=== PATIENT | female | born 1985 | race Caucasian/White ===

== ENCOUNTER 2023-09-03 13:34 | Outpatient (OUT) | payer BC, SELFPAY ==
--- NOTE | 2023-09-03 13:35 | US_ITS ---
[address] [address] Patient Name: YULIANA FLORES MRN: [id number] date: 1985 Sex: F Assigned Patient Location: US Current Patient Location: Accession/Order Number: [id number] Exam Date: 09/03/2023 13:40 Report Date: 09/03/2023 22:15 At the request of: LILIAN VELASCO Procedure: US OB transvaginal EXAMINATION: US OB transvaginal HISTORY: MISSED MENSES COMPARISON: No relevant comparison available. FINDINGS: GESTATIONAL SAC: Present and normal appearing. YOLK SAC: Present and normal appearing. POLE: Present and normal appearing. CARDIAC: Present. UTERUS: Normal size and appearance. OVARIES: Right: Corpus lutein cyst. Left: Not seen. CERVIX: 3.6 cm in length and closed. CUL-DE-SAC: Normal. OTHER: Hypervascularity within right adnexa; nonspecific. AGE BY LMP: 8 weeks 5 days IRMA BY LMP: 04/09/2024 AGE BY US CRL: 7 weeks 6 days IRMA BY US CRL: 04/15/2024 US/US OB transvaginal IMPRESSION: 1. Single live intrauterine . Electronically authenticated by: ALISHA PATEL Date: 09/03/2023 22:15
== END 2023-09-03 13:35 | disposition home or self-care (01) ==
LOC: US 13:34
PROVIDERS: Visit Provider Obstetrics & Gynecology
DX: Z34.01 Encounter for supervision of normal first pregnancy, first trimester (principal); Z3A.08 8 weeks gestation of pregnancy
CPT/HCPCS: 76817

== ENCOUNTER 2023-09-17 15:10 | Outpatient (OUT) | payer BC, SELFPAY ==
[2023-09-17 15:33] LABS: Basophils Percent Auto 0.5 % (0.2-2.0); Eosinophils Absolute Auto 0.2 10^3/uL (0.0-0.7); Eosinophils Percent Auto 2.4 % (0.9-7.0); Hematocrit 34.5 % (36.0-48.0); Hemoglobin 11.4 g/dL (12.0-16.0); Immature Granulocytes Abs Auto 0.01 10^3/uL (0.00-0.03); Immature Granulocytes Pct Auto 0.1 % (0.0-0.5); Lymphocytes Absolute Auto 2.5 10^3/uL (1.2-3.8); Lymphocytes Percent Auto 32.5 % (20.5-60.0); Mean Corpuscular Hemoglobin 32.5 pg (26.7-34.0); Mean Corpuscular Volume 98.3 fL (81.0-99.0); Mean Platelet Volume 11.3 fL (9.5-13.5); Monocytes Absolute Auto 0.8 10^3/uL (0.3-0.8); Monocytes Percent Auto 9.7 % (1.7-12.0); Neutrophils Absolute Auto 4.3 10^3/uL (1.4-6.5); Neutrophils Percent Auto 54.8 % (43.0-75.0); Platelet Count 171 10^3/uL (150-450); Red Blood Count 3.51 10^6/uL (4.20-5.40); Red Cell Distribution Width 11.8 % (11.0-15.0); White Blood Count 7.8 10^3/uL (4.0-11.0)
[2023-09-17 15:47] LABS: Estimated Average Glucose 100 mg/dL; Glycohemoglobin A1C 5.1 % (4.5-6.2)
[2023-09-17 16:13] LABS: Thyroid Stimulating Hormone <0.007 uIU/mL (0.358-3.740)
[2023-09-18 05:07] LABS: HCV Ab Non Reactive (Non Reactive); HIV Ab/p24 Ag Screen Non Reactive (Non Reactive); Rubella Antibodies, IgG 1.97 index (Immune >0.99)
[2023-09-18 06:09] LABS: HBsAg Screen Negative (Negative)
[2023-09-18 11:09] LABS: Rapid Plasma Reagin, Quant Non Reactive titer (NonRea<1:1)
== END 2023-09-17 15:11 | disposition home or self-care (01) ==
LOC: LAB 15:12
PROVIDERS: Visit Provider Obstetrics & Gynecology
DX: N92.6 Irregular menstruation, unspecified (principal)
CPT/HCPCS: 36415; 83036; 84443; 85025; 86592; 86762; 86803; 86850; 86900; 86901; 87086; 87340; 87389

== ENCOUNTER 2023-10-13 15:36 | Outpatient (OUT) | payer BC, SELFPAY ==
[2023-10-13 16:52] LABS: Thyroid Stimulating Hormone 0.054 uIU/mL (0.358-3.740)
== END 2023-10-13 15:37 | disposition home or self-care (01) ==
LOC: LAB 15:39
PROVIDERS: Visit Provider Obstetrics & Gynecology
DX: R79.89 Other specified abnormal findings of blood chemistry (principal)
CPT/HCPCS: 36415; 84443

== ENCOUNTER 2024-01-19 15:10 | Outpatient (OUT) | payer BC, MEDICAID, SELFPAY ==
[2024-01-19 16:37] LABS: Basophils Absolute Auto 0.1 10^3/uL (0.0-0.1); Basophils Percent Auto 0.5 % (0.2-2.0); Eosinophils Absolute Auto 0.3 10^3/uL (0.0-0.7); Eosinophils Percent Auto 2.9 % (0.9-7.0); Hematocrit 29.1 % (36.0-48.0); Hemoglobin 9.5 g/dL (12.0-16.0); Immature Granulocytes Abs Auto 0.07 10^3/uL (0.00-0.03); Immature Granulocytes Pct Auto 0.6 % (0.0-0.5); Lymphocytes Absolute Auto 2.7 10^3/uL (1.2-3.8); Mean Corpuscular HGB Conc 32.6 g/dL (29.9-35.2); Mean Corpuscular Hemoglobin 32.8 pg (26.7-34.0); Mean Corpuscular Volume 100.3 fL (81.0-99.0); Mean Platelet Volume 11.7 fL (9.5-13.5); Monocytes Absolute Auto 0.9 10^3/uL (0.3-0.8); Monocytes Percent Auto 8.3 % (1.7-12.0); Neutrophils Absolute Auto 6.8 10^3/uL (1.4-6.5); Neutrophils Percent Auto 62.7 % (43.0-75.0); Platelet Count 142 10^3/uL (150-450); Red Cell Distribution Width 12.9 % (11.0-15.0); White Blood Count 10.8 10^3/uL (4.0-11.0)
[2024-01-19 16:44] LABS: Glucose 1 Hour 115 mg/dL (<130)
== END 2024-01-19 15:11 | disposition home or self-care (01) ==
PROVIDERS: Visit Provider Obstetrics & Gynecology
DX: Z13.1 Encounter for screening for diabetes mellitus (principal)
CPT/HCPCS: 36415; 82950; 85025

== ENCOUNTER 2024-02-04 09:32 | Outpatient (OUT) | payer BC, MEDICAID, SELFPAY ==
--- NOTE | 2024-02-04 09:37 | US_ITS ---
[address] [address] Patient Name: YULIANA FLORES MRN: [id number] date: 1985 Sex: F Assigned Patient Location: US Current Patient Location: Accession/Order Number: [id number] Exam Date: 02/04/2024 09:38 Report Date: 02/04/2024 10:03 At the request of: LILIAN VELASCO Procedure: US OB growth EXAMINATION: US OB growth HISTORY: Multigravida Of Advanced Maternal Age In Second Trimester COMPARISON: 09/03/2023 FINDINGS: Heart Rate: 126.2 bpm Amniotic Fluid Volume: 14.7 cm Number: 1.0 Position: Breech presentation, longitudinal lie Maximum Vertical Pocket: 4.6 cm cm 5.2 cm cm 2.8 cm cm 2.0 cm cm BIOMETRY: BPD: 7.1 cm cm; 28 weeks 3 days; 7% HC: 27.0 cmcm; 29 weeks 3 days, 9% AC: 24.9 cm cm; 29 weeks 1 days, 24% FL: 5.2 cm cm; 27 weeks 4 days; 3.0 % % EFW: 1255.7 grams, 2 lbs. 12 oz., 18% FL/AC: 20.8 FL/BPD: 73.0 HC/AC: 1.1 GESTATIONAL AGE: Age by EDC: 29 weeks 6 days IRMA by EDC: 04/15/2024 Age by US: 28 weeks 5 days IRMA by US: 04/23/2024 US/US OB growth IMPRESSION: Femur length at the 3rd percentile BPD at the 7th percentile Electronically authenticated by: KIYA FARMER Date: 02/04/2024 10:03
== END 2024-02-04 09:33 | disposition home or self-care (01) ==
LOC: US 09:32
PROVIDERS: Visit Provider Obstetrics & Gynecology
DX: O09.522 Supervision of elderly multigravida, second trimester (principal); Z3A.28 28 weeks gestation of pregnancy
CPT/HCPCS: 76816

== ENCOUNTER 2024-02-19 15:25 | Outpatient (OUT) | payer BC, MEDICAID, SELFPAY ==
[2024-02-19 16:26] LABS: Basophils Percent Auto 0.3 % (0.2-2.0); Eosinophils Absolute Auto 0.3 10^3/uL (0.0-0.7); Eosinophils Percent Auto 2.7 % (0.9-7.0); Hematocrit 29.2 % (36.0-48.0); Hemoglobin 9.4 g/dL (12.0-16.0); Immature Granulocytes Abs Auto 0.12 10^3/uL (0.00-0.03); Mean Corpuscular HGB Conc 32.2 g/dL (29.9-35.2); Mean Corpuscular Hemoglobin 32.3 pg (26.7-34.0); Mean Corpuscular Volume 100.3 fL (81.0-99.0); Mean Platelet Volume 11.9 fL (9.5-13.5); Monocytes Absolute Auto 0.9 10^3/uL (0.3-0.8); Monocytes Percent Auto 8.1 % (1.7-12.0); Neutrophils Absolute Auto 7.1 10^3/uL (1.4-6.5); Neutrophils Percent Auto 61.9 % (43.0-75.0); Platelet Count 159 10^3/uL (150-450); Red Blood Count 2.91 10^6/uL (4.20-5.40); Red Cell Distribution Width 12.8 % (11.0-15.0); White Blood Count 11.5 10^3/uL (4.0-11.0)
[2024-02-19 16:40] LABS: Total Protein 6.8 g/dL (6.4-8.2)
[2024-02-23 12:09] LABS: Antithrombin Activity 136 % (75-135); Protein C-Functional 108 % (73-180)
[2024-02-26 10:09] LABS: APTT 26.1 sec (.); INR 0.9 ratio (.); Prothrombin Time 9.9 sec (.); Thrombin Time 14.7 sec (.)
== END 2024-02-19 15:26 | disposition home or self-care (01) ==
LOC: LAB 15:26
PROVIDERS: Visit Provider Obstetrics & Gynecology
DX: O26.22 Pregnancy care for patient with recurrent pregnancy loss, second trimester (principal); D64.9 Anemia, unspecified
CPT/HCPCS: 36415; 81241; 84155; 85025; 85303; 85305; 85306; 85597; 85598; 85610; 85613; 85670; 85730; 85732; 86146; 86147

== ENCOUNTER 2024-03-09 07:18 | Outpatient (OUT) | payer BC, OTHER, SELFPAY ==
--- OUTSIDE RECORDS SUMMARY | 2024-03-09 07:21 | XMS_ITS | CCD ---
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 Name Role Phone AKIKO ., DR SÁNCHEZ Admitting Unavailabl e KARASIK ., DR SÁNCHEZ Attending Unavailabl e KARASIK ., DR SÁNCHEZ Primary Care Unavailabl e KARASIK ., DR SÁNCHEZ Consulting Unavailabl e Unavailable Primary Care Provider Unavailabl e DOCHEVA, NIKOLINA P Referring Unavailable NO PCP, NO PCP Primary Care Unavailable Unavailable Primary Care Provider Unavailabl e No Pcp, No Pcp Primary Care Provider Unavailabl e DOCHEVA, NIKOLINA P Referring Unavailable DOCHEVA, NIKOLINA P Referring Unavailable MOUSSA, HIND NADIM Attending Unavailable MOUSSA, HIND NADIM Referring Unavailable NO PCP, NO PCP Primary Care Unavailable MOUSSA, HIND NADIM Attending Unavailable KRISTA, LILIAN R Referring Unavailable NO PCP, NO PCP Primary Care Unavailable REF PROV, NOT IN SYSTEM Referring Unavaila ble KRISTA, LILIAN Attending Unavailable KRISTA, LILIAN Attending Unavailable BONI, MAMTA Attending Unavailable KRISTA, LILIAN Attending Unavailable KRISTA, LILIAN Attending Unavailable BONI, MAMTA Attending Unavailable BONI, MAMTA Attending Unavailable Medications Current Medications Medication Drug Class(es) Dates Sig (Normalized) Sig (Original) aspirin 81 mg chewable tablet (6 sources) Platelet Aggregation Inhibitor, Nonsteroidal Anti-inflammatory Drug Start: 10-29-2023 End: 05-26-2024 aspirin 81 mg chewable tablet Indications: 15 weeks gestation of , Multigravida of advanced maternal age in second trimester Chew 1 tablet (81 mg total) and swallow in the morning for 210 days. 30 tablet 6 10/29/2023 05/26/2024 Active ondansetron 4 mg oral tablet (6 sources) Serotonin-3 Receptor Antagonist take 1 tablet by mouth every eight hours as needed for nausea and vomiting ondansetron (ZOFRAN) 4 mg tablet Take 1 tablet (4 mg total) by mouth every 8 (eight) hours as needed for nausea or vomiting. 0 Active PNV no.95/ferrous fum/folic ac ( ORAL) (4 sources) PNV no.95/ferrou s fum/folic ac ( ORAL) Take by mouth. 0 Active MV & Min w/FA-DHA ( Gummies) 0.18-25 MG chewable tablet (3 sources) Start: 09-03-2023 End: 09-02-2024 MV & Min w/FA-DHA ( Gummies) 0.18-25 MG chewable tablet Indications: Missed menses Chew 25 mg in the morning. 30 tablet 11 09/03/2023 09/02/2024 Active Problems Problem Classification Problem Date Documented Date Episodic/Chronic Immunizations and screening for infectious disease (1 source) Encounter for screening for human papillomavirus (HPV); Translations: [ENC SCREENING HUMAN PAPILLOMAVIRUS] Onset: 01-09-2023 Episodic Other complications of (7 sources) Multigravida of advanced maternal age; Translations: [Supervision of elderly multigravida, second trimester] Onset: 10-30-2023 11-04-2023 Episodic Other complications of (3 sources) Abnormal findings on screening of mother; Translations: [Abnormal chromosomal and genetic finding on screening of mother] 11-04-2023 Episodic Other complications of (4 sources) Abnormal placenta affecting management of mother; Translations: [Other malformation of placenta, unspecified trimester] Onset: 10-30-2023 10-30-2023 Episodic Other complications of (5 sources) Placenta circumvallata; Translations: [Circumvallate placenta, second trimester] Onset: 10-30-2023 10-30-2023 Episodic Other complications of (4 sources) Maternal tobacco use; Translations: [Smoking (tobacco) complicating , second trimester] Onset: 10-30-2023 10-30-2023 Episodic Other complications of (2 sources) Recurrent miscarriage; Translations: [ care for patient with recurrent loss, second trimester] 11-26-2023 Episodic Other complications of (2 sources) Supervision of elderly multigravida, second trimester; Translations: [Supervision of elderly multigravida, second trimester] Onset: 10-30-2023 Episodic Other complications of (1 source) Other malformation of placenta, unspecified trimester; Translations: [Other malformation of placenta, unspecified trimester] Onset: 10-30-2023 Episodic Other complications of (2 sources) Circumvallate placenta, second trimester; Translations: [Circumvallate placenta, second trimester] Onset: 10-30-2023 Episodic Other complications of (2 sources) Endocrine, nutritional and metabolic diseases complicating , unspecified trimester; Translations: [Endocrine, nutritional and metabolic diseases complicating , unspecified trimester] Onset: 10-29-2023 Episodic Other complications of (1 source) Smoking (tobacco) complicating , second trimester; Translations: [Smoking (tobacco) complicating , second trimester] Onset: 10-30-2023 Episodic Other complications of (2 sources) Malformation of placenta, unspecified, unspecified trimester; Translations: [Malformation of placenta, unspecified, unspecified trimester] Onset: 12-01-2023 Episodic Other complications of (1 source) Thyroid disease in mother complicating , childbirth AND/OR puerperium; Translations: [Endocrine, nutritional and metabolic diseases complicating , unspecified trimester] 12-29-2023 Episodic Other complications of (1 source) care for patient with recurrent loss, second trimester; Translations: [ care for patient with recurrent loss, second trimester] Onset: 12-29-2023 Episodic Other complications of (1 source) Abnormal chromosomal and genetic finding on screening of mother; Translations: [Abnormal chromosomal and genetic finding on screening of mother] Onset: 11-26-2023 Episodic Other and delivery including normal (5 sources) Second trimester ; Translations: [Encounter for supervision of normal , unspecified, second trimester] Onset: 11-20-2023 11-20-2023 Episodic Other screening for suspected conditions (not mental disorders or infectious disease) (9 sources) Encounter for screening for malignant neoplasm of cervix; Translations: [Encounter for other specified screening] Onset: 01-06-2023 Episodic Residual codes; unclassified (1 source) Gestation period, 24 weeks; Translations: [24 weeks gestation of ] 12-29-2023 Episodic Residual codes; unclassified (1 source) 24 weeks gestation of ; Translations: [24 weeks gestation of ] Onset: 02-20-2024 Episodic Residual codes; unclassified (1 source) 15 weeks gestation of ; Translations: [15 weeks gestation of ] Onset: 10-29-2023 Episodic Thyroid disorders (2 sources) Disorder of thyroid, unspecified; Translations: [Disorder of thyroid, unspecified] Onset: 10-29-2023 Episodic Unclassified (1 source) Marginal Insertion of Umbilical Cord Onset: 12-29-2023 Unclassified (1 source) Advanced Maternal Age Onset: 12-29-2023 Results Test Name Value Interpretation Reference Range Facility Urinalysis macro (dipstick) panel (U)on 12-23-2023 Bilirubin, UA Negative Negative - 4(70) +++ mg/dL [facility] Blood, UA Negative Negative - 50 Ari/mcL [facility] Clarity, UA Clear [facility] Color, UA Yellow [facility] Glucose, UA Negative Negative - 1999(110) ++++ mg/dL [facility] Interpretation and review of laboratory results Normal [facility] Ketones, UA Negative Negative - 160(16) ++++ mg/dL [facility] Leukocytes, UA Negative Negative - 500+++ Panchito/mcL [facility] Nitrite, UA Negative Negative - Positive [facility] pH, UA 7.5 5 - 9 [facility] Protein, UA Negative Negative - 1999(20) ++++ mg/dL [facility] Spec Grav, UA 1.015 1 - 1.03 [facility] Urobilinogen, UA 0.2 0.2 - 12 mg/dL [facility] FREE T3on 10-29-2023 Free T3 [Mass/Vol] 2.72 pg/mL Normal 2.50-3.90 [facility] Comment on above: Performed By: #### 3 051-0, THYR #### [facility] ([id number]) [address], [address] [place] [address] THYROID PROFILEon 10-29-2023 Free T4 [Mass/Vol] 0.85 ng/dL Normal 0.61-1.60 [facility] Comment on above: Performed By: #### 3 051-0, THYR #### [facility] ([id number]) [address] [place] [address], [address] [place] [address] TSH 0.18 uIU/mL Low 0.49-4.67 [facility] Comment on above: Performed By: #### 3 051-0, THYR #### [facility] ([id number]) [address], [address] [place] [address] Thyroid stimulating immunogl obulins Qn (S)on 10-29-2023 TSI See Below Normal [facility] Comment on above: Result Comment: NOTE TEST RESULT FLAG UNIT REF.RANGE ----- TSI Qualitative Negative Negative TSI <0.10 IU/L <0.55 Thyroid Stimulating Immunoglobulin test is used as an aid in diagnosis of autoimmune hyperthyroidism especially in patients with Grave's orbitopathy and dermopathy. Low positive TSH receptor stimulating antibody levels may occasionally be found in patients with autoimmune hypothyroidism. Clinical correlation is required. Test Performed By: [facility] [address] [place] [address] Imager: Casandra Womack III #[id number] Performed By: #### 3 051-0, THYR #### [facility] ([id number]) [address], [address] [address] PAP ACOG PANEL 1: 30 to 65on 01-15-2023 . . Normal [facility] Comment on above: Result Comment: Perf ormed at: WB Performed By: #### [id number] #### [facility] [address] [place] [address] Dr. Ata Rao Age Gdln ACOG Testing 30-65 Normal [facility] Comment on above: Performed By: #### [id number] #### [facility] [address] [place] [address] Dr. Ata Rao DIAGNOSIS: Comment [facility] Comment on above: Result Comment: NEGA TIVE FOR INTRAEPITHELIAL LESION OR MALIGNANCY. CELLULAR CHANGES ASSOCIATED WITH INFLAMMATION ARE PRESENT. THIS SPECIMEN WAS RESCREENED PART OF OUR FLOWER BUNCHER OR PICKER PROGRAM. Performed at: WB Performed By: #### [id number] #### [facility] [address] [place] [address] Dr. Ata Rao HPV Aptima Negative Normal Negative [facility] Comment on above: Result Comment: This nucleic acid amplification test detects fourteen high-risk HPV types (16,18,31,33,35,39,45,51,52,56,58,59,66,68) without differentiation. Performed at: =G Performed By: #### [id number] #### [facility] [address] [place] [address] Dr. Ata Rao HPV Genotype Reflex Comment Normal [facility] Comment on above: Result Comment: Crit eria not met, HPV Genotype not performed. Performed at: WB Performed By: #### [id number] #### [facility] [address] [place] [address] Dr. Ata Rao Methodology: Comment Normal [facility] Comment on above: Result Comment: This liquid based ThinPrep(R) pap test was screened with the use of an image guided system. Performed at: WB Performed By: #### [id number] #### [facility] [address] [place] [address] Dr. Ata Rao Note: Comment Normal [facility] Comment on above: Result Comment: The Pap smear is a screening test designed to aid in the detection of premalignant and malignant conditions of the uterine cervix. It is not a diagnostic procedure and should not be used as the sole means of detecting cervical cancer. Both false-positive and false-negative reports do occur. . Performed at: WB Performed By: #### [id number] #### [facility] [address] [place] [address] Dr. Ata Rao Performed by: Comment Normal [facility] Comment on above: Result Comment: Matt Tang, Serology Teacher (ASCP) Performed at: WB Performed By: #### [id number] #### [facility] [address], [place] [address] Dr. Ata Rao QC reviewed by: Comment Normal [facility] Comment on above: Result Comment: Jeanette Zhang, Supervisory Serology Teacher (ASCP) Performed at: WB Performed By: #### [id number] #### [facility] [address], [place] [address] Dr. Ata Rao Specimen adequacy: Comment Normal [facility] Comment on above: Result Comment: Sati sfactory for evaluation. Endocervical and/or squamous metaplastic cells (endocervical component) are present. Performed at: WB Performed By: #### [id number] #### [facility] [address] [place] [address] [address] Ata Rao Vital Signs Date Time Vital Sign Value Performing Clinician Hannah osman 12-29-2023 13:10-0500 Body height 163.8 cm Isaias Lujan MD Work Phone: [facility] 12-29-2023 13:10-0500 Body mass index (BMI) [Ratio] 21.26 kg/m2 Isaias Lujan MD Work Phone: [facility] 12-29-2023 13:10-0500 Body weight 57.06 kg Isaias Lujan MD Work Phone: [facility] 12-29-2023 13:10-0500 Diastolic blood pressure 54 mm[Hg] Isaias Lujan MD Work Phone: [facility] 12-29-2023 13:10-0500 Heart rate 82 /min Isaias Lujan MD Work Phone: [facility] 12-29-2023 13:10-0500 Systolic blood pressure 112 mm[Hg] Isaais Lujan MD Work Phone: [facility] 12-23-2023 11:32-0500 Body mass index (BMI) [Ratio] 21.46 kg/m2 Mamta OWENS Work Phone: [facility] 12-23-2023 11:32-0500 Body weight 56.7 kg Mamta OWENS Work Phone: [facility] 12-23-2023 11:32-0500 Diastolic blood pressure 68 mm[Hg] Mamta OWENS Work Phone: [facility] 12-23-2023 11:32-0500 Systolic blood pressure 104 mm[Hg] Mamta OWENS Work Phone: [facility] Healthcare Encounters Encounter Date Encounter Type Care Provider Facility Start: 02-23-2024 End: 02-23-2024 ambulatory MAMTA PLATA Not Available Start: 02-04-2024 End: 02-04-2024 ambulatory LILIAN KING Not Available Start: 01-21-2024 End: 01-21-2024 ambulatory LILIAN KING Not Available Start: 12-29-2023 End: 12-30-2023 ambulatory [facility] Start: 12-29-2023 End: 12-29-2023 Office outpatient visit 25 minutes Isaias Lujan MD Work Phone: [facility] Comment on above: Multigravida of adva nced maternal age in second trimester (Primary Dx); Abnormal genetic test during ; Circumvallate placenta in second trimester; Thyroid disease affecting ; 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, antepartum; 24 weeks gestation of Start: 12-23-2023 End: 12-23-2023 ambulatory MAMTA PLATA Not Available Start: 12-23-2023 End: 12-23-2023 flow sheet Mamta OWENS Work Phone: [facility] Comment on above: Third trimester preg lalit; Diabetes mellitus screening Start: 12-21-2023 Chart abstracting Mamta OWENS Work Phone: [facility] Start: 12-01-2023 End: 12-02-2023 ambulatory [facility] Start: 11-26-2023 End: 11-26-2023 ambulatory [facility] Start: 11-26-2023 End: 11-26-2023 Telemedicine consultation with patient Lucia Toth MD Work Phone: [facility] Comment on above: Abnormal genetic sadi t during (Primary Dx); Multigravida of advanced maternal age in second trimester; 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, antepartum Start: 11-24-2023 End: 11-24-2023 ambulatory LILIAN JACOBO Not Available Start: 11-11-2023 Telephone encounter Ashley Higgins RN Mat ernal- [facility] at [facility] Start: 11-04-2023 Orders Only Radha Sy RN Materna l- [facility] at [facility] Comment on above: Multigravida of adva nced maternal age in second trimester (Primary Dx); Abnormal genetic test during Start: 10-29-2023 End: 10-31-2023 ambulatory NOT IN SYSTEM REF PROV [facility] Start: 10-27-2023 End: 10-27-2023 ambulatory MAMTA PLATA Not Available Start: 09-24-2023 End: 09-24-2023 ambulatory LILIAN KING Not Available Start: 01-06-2023 End: 01-06-[address] PRINCESS WHARTON . Facility: Procedures Date Procedure Procedure Detail Performing Clinician Start: 12-23-2023 Urnls dip stick/tabl et rgnt non-auto w/o micrscp Mamta OWENS Work Phone: Plan of Treatment Date Care Activity Detail Author Start: 12-29-2024 Tobacco Screening Tobacco Screening [facility] Start: 10-30-2024 Tobacco Screening Tobacco Screening [facility] Start: 02-08-2024 End: 02-08-2024 Patient encounter procedure 02/08/2024 9:00 AM EDT Office Visit [facility] [address] [facility] [place] [address] Lilian King, [address] [place] [address] [facility] Start: 01-21-2024 End: 01-21-2024 Patient encounter procedure 01/21/2024 9:40 AM EDT Routine [facility] [address] [address] Lilian King DO [address] [place] [address] [facility] Start: 12-23-2023 End: 12-23-2024 CBC panel - Blood by Automated count CBC Lab Routine Diabetes mellitus screening Expected: 12/23/2023 (Approximate), Expires: 12/23/2024 [facility] Work Phone: Comment on above: Expected: 12/23/2023 (Approximate), Expires: 12/23/2024 Start: 12-23-2023 End: 12-23-2024 Measurement of glucose 1 hour after glucose challenge for glucose tolerance test Glucose tolerance, 1 hour Lab Routine Diabetes mellitus screening Expected: 12/23/2023 (Approximate), Expires: 12/23/2024 [facility] Comment on above: Expected: 12/23/2023 (Approximate), Expires: 12/23/2024 Start: 12-23-2023 End: 12-23-2023 Patient encounter procedure 12/23/2023 11:20 AM EST Routine [facility] [address] [address] Mamta Plata PA [address] [address] Third trimester [facility] Comment on above: Third trimester preg lalit Start: 12-03-2023 End: 12-03-2023 Patient encounter procedure 12/03/2023 11:00 AM EST Appointment [facility] [address] [place] [address] [facility] [place] Start: 12-01-2023 End: 12-01-2023 Patient encounter procedure 12/01/2023 1:30 PM EST Appointment [facility] [address] [place] [address] [facility] Start: 11-26-2023 End: 11-26-2023 Telemedicine consultation with patient 11/26/2023 3:00 PM EST Telemedicine [facility] [address] [place] [address] Lucia Toth MD [address] [facility], [address] [place] [address] Nataly Koo, [facility] [address] [place] [address] [facility] Start: 07-10-2023 Influenza vaccination Influenza Vacc ine [facility] Start: 2008 Screening for malign ant neoplasm of cervix Pap Smear [facility] Start: 2005 Adult BMI Screening Adult BMI Screen ing [facility] Start: 1999 Depression Screening Depression Scre ening [facility] Start: 1998 DTaP,Tdap and Td Vaccines (5 - Tdap) DTaP,Tdap and Td Vaccines (5 - Tdap) [facility] Payers Date Payer Category Payer Medicaid MEDICAID [facility] EDICAID [id number] 2023-Present [phone] [address] [place] [address] [id number] 2023 Medicaid [id number] 2019 Unknown [id number] 2019 Unknown [id number] 1987 Unknown [id number] 1987 Unknown [id number] [id number] 1987 Unknown [id number] 2.16.840.1.330638.3.579.2.6 1987 Unknown [id number] 2.16.840.1.852984.3.579.2.6 1987 Unknown [id number] 2.16.840.1.070928.3.579.2.1285 1987 Unknown [id number] 2.16.840.1.560516.3.579.2.6 1987 Unknown [id number] 2.16.840.1.810106.3.579.2.1285 1987 Unknown [id number] 2.16.840.1.389700.3.579.2.9 1987 Unknown [id number] 2.16.840.1.427842.3.579.2.1258 1987 Unknown [id number] 2.16.840.1.101083.3.579.2.9 1987 Unknown [id number] 2.16.840.1.458493.3.579.2.1258 1987 Unknown [id number] 2.16.840.1.061207.3.579.2.9 1987 Unknown [id number] 2.16.840.1.929048.3.579.2.1258 1987 Unknown [id number] [id number] 1959 Unknown [id number] Social History Date Type Detail Facility Start: 05-24-2023 End: 10-26-2023 [facility] History of tobacco use Current smoker [facility] History of tobacco use Cigarette Smoker [facility] Start: 10-30-2023 End: 11-24-2023 Alcohol intake Lifetime non-drinker (finding) [facility] Start: 10-30-2023 End: 12-29-2023 History of Social function [facility] Start: 10-30-2023 End: 12-29-2023 Tobacco use panel [facility] Housing Instability Unknown [facility] Start: 07-24-2023 [facility] Start: 1987 Sex Assigned At Not on file [facility] Start: 1987 Sex Assigned At Female [facility] Start: 05-26-2023 Gender identity Identifies as female gender (finding) [facility] Start: 12-29-2023 Alcohol intake Ex-drinker (finding) [facility] Clinical Notes 11-11-2023 to 12-29-2023 Isaias Lujan MD - 12/29/2023 2:00 PM Tristan Gonzalez RN - 12/29/2023 2:00 PM ROMAN Granados - 12/23/2023 11:20 AM PATRICIA Jeffrey - 11/26/2023 3:00 PM EST Note Date & Type Note Facility 12-29-2023 History of Presen t illness Narrative [facility] Maternal- Medicine Office Visit Note HPI: Lenora Galaviz is a 38 y.o. @ 24w4d who is presenting for an office visit regarding Chief Complaint Patient presents with Marginal Insertion of Umbilical Cord Advanced Maternal Age Circumvallate Placenta Patient Active Problem List Diagnosis Multigravida of advanced maternal age in second trimester Marginal insertion of umbilical cord affecting management of mother Circumvallate placenta in second trimester Smoking (tobacco) complicating , second trimester . Her is complicated by OB History 6 Para 2 Term 2 AB 3 Living 2 SAB IAB Ectopic Multiple Live Births 2 She reports that she is doing well. She reports normal movements and she denies LOF, contractions, vaginal bleeding, headache, blurry vision, RUQ pain and edema. The primary encounter diagnosis was Multigravida of advanced maternal age in second trimester. Diagnoses of Abnormal genetic test during , Circumvallate placenta in second trimester, Thyroid disease affecting , 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, antepartum, and 24 weeks gestation of were also pertinent to this visit. REVIEW OF SYSTEMS: Head and Neck: Negative for any dizziness and headaches. Cardiovascular and Respiratory System: Denies any chest pain, shortness of breath, and coughing. 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, antepartum 24 weeks gestation of PMH: Past Medical History: Diagnosis Date Atyp squam cell of undet signfc cyto smr anus (ASC-US) Atypical squamous cells cannot exclude high grade squamous intraepithelial lesion on cytologic smear of cervix (ASC-H) PSHIST: Past Surgical History: Procedure Laterality Date CERVICAL BIOPSY W/ LOOP ELECTRODE EXCISION DILATION AND CURETTAGE OF UTERUS DILATION AND CURETTAGE OF UTERUS OB Hx: OB History Para Term AB Living 6 2 2 3 2 SAB IAB Ectopic Multiple Live Births 2 # Outcome Date GA Lbr Marcin/2nd Weight Sex Delivery Anes PTL Lv 6 Current 5 Term 08/17/17 41w0d 2.948 kg M Vag-Spont CATRINA 4 AB 04/2016 3 Term 02/12/09 40w2d 3.033 kg F Vag-Spont CATRINA 2 AB 1 AB Allergies: No Known Allergies Meds: Prior to Admission medications Medication Sig Start Date End Date Taking? Authorizing Provider aspirin 81 mg chewable tablet Chew 1 tablet (81 mg total) and swallow in the morning for 210 days. 10/29/23 05/26/24 Lucia Toth MD ondansetron (ZOFRAN) 4 mg tablet Take 1 tablet (4 mg total) by mouth every 8 (eight) hours as needed for nausea or vomiting. Not In System Ref Prov PNV no.95/ferrous fum/folic ac ( ORAL) Take by mouth. Not In System Ref Prov SH: Social History Socioeconomic History Marital status: Single Spouse name: Not on file Number of children: Not on file Years of education: Not on file Highest education level: Not on file Occupational History Not on file Tobacco Use Smoking status: Former Types: Cigarettes Smokeless tobacco: Not on file Substance and Sexual Activity Alcohol use: Not Currently Drug use: Not Currently Types: Marijuana Sexual activity: Not on file Other Topics Concern Not on file Social History Narrative Not on file Social Determinants of Health Financial Resource Strain: Not on file Food Insecurity: No Food Insecurity (12/29/2023) Hunger Screening Food Insecurity - Worry: Never True Food Insecurity - Inability: Never True Transportation Needs: Not on file Physical Activity: Not on file Stress: Not on file Social Connections: Not on file Interpersonal Safety: Not on file Housing Instability: Not on file Physical Exam: Vital Signs Vitals: 12/29/23 1310 BP: 112/54 BP CUFF SIZE: Other Pulse: 82 Weight: 57.1 kg (125 lb 12.8 oz) Height: 163.8 cm (5' 4.5 ) Physical Exam: Gen: Not in acute distress, alert and oriented. Eyes: Pupils equal and reactive Chest: Nonlabored breathing Cardiac: Pulse was regular on vital signs assessment Abdomen: Gravid Skin/extremities: Appears intact. No visible lesions MS:no visible edema Neuro: No focal deficits Assessment/Plan 38 y.o. @ 24w4d here for office visit regardin. Multigravida of advanced maternal age in second trimester 2. Abnormal genetic test during Please see prior consultation note. She is status post genetic consultation. She desires assessment for trisomy X. Reviewed sonographic assessment from today that appears within normal limits. Recommend follow-up with Dr. King with serial growth ultrasounds every 4 weeks. She vocalized understanding. 3. Circumvallate placenta in second trimester Please see prior consultation note. Recommend to continue serial growth assessments every 4 weeks. 4. Thyroid disease affecting Component Latest Ref Rng 10/13/2023 10/29/2023 TSH 0.49 - 4.67 uIU/mL 0.18 (L) T4, free 0.61 - 1.60 ng/dL 0.85 Thyroid Stimulating (3Rd Generation) Hormone/ Tsh 0.054 (E) Thyroid stimulating immunoglobulin See Below T3, free 2.50 - 3.90 pg/mL 2.72 Legend: (L) Low (E) External lab result 5. 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 It is indicated with history of 3 prior first-trimester losses. Recommend obtaining with her follow-up labs. If antiphospholipid syndrome testing is abnormal then would recommend Lovenox as well as baby aspirin. More than happy to address at that time accordingly. She will have her lab work with Dr. King. Recommend to obtain anticardiolipin antibodies, beta 2 glycoprotein and lupus anticoagulant. 6. 24 weeks gestation of Recommendations: Continue any aspirin 81 mg q.day Serial growth assessments every 4 weeks after the anatomy scan Recommend complete antiphospholipid syndrome testing with her primary OB office. testing to be initiated at 32 weeks with weekly NST and weekly DVP, twice weekly testing at 36 weeks with twice weekly NST and weekly DVP. Delivery recommended at 39 weeks or earlier as clinically indicated Plan reviewed with patient. She vocalized understanding all questions answered. Multigravida of advanced maternal age in second trimester [O09.522] The patient is to continue with routine care in your office [facility], the CDC, and other organizations representing maternal and public health professionals recommend that , , and lactating people and those considering receive the COVID-19 vaccination. Vaccination is the best method to reduce maternal and complications of SARS-CoV-2 infection. This document was created with [email or web address] technology. Though I make every effort to review the dictation as it is transcribed, on occasion the spoken word can be misinterpreted by the technology leading to inappropriate words, phrases, or sentences. This note is addressed to the requesting provider as a consultation for clinical guidance. Specific medical abbreviations are occasionally used and those are generally approved by the [place]?Board of?Obstetrics and?Gynecology?as well as?Merly de anda abbreviations. The above plan of care was based solely on the diagnoses for which a consultation was requested. ?More frequent testing may be indicated based on her other medical/obstetrical conditions. The management of other or medical conditions is beyond the scope of requested consultation and will continue to be followed by the primary technical sales representatives or primary care provider. Thank you for allowing me to participate in her care. Please contact me if you have any concerns. Total time spent was 30 minutes: Preparing to see the patient (e.g., review of tests) Obtaining and/or reviewing separately obtained history Performing a medically appropriate examination and/or evaluation Counseling and educating the patient/family/caregiver Ordering medications, tests, or procedures Referring and communicating with other health lawn care specialist (not separately reported) Documenting clinical information in the electronic or other health record Independently interpreting results (not separately reported) and communicating results to the patient/family/caregiver Care coordination (not separately reported) Headache/epigastric pain/blurry vision/swelling? No Cramping/contractions? No Abnormal vaginal discharge? No Spotting or vaginal bleeding? No Loss of fluid like your water may have broken? No Recent ER visits or hospitalizations? No Any concerns that you would like me to mention to the provider today? No documented in this encounter [facility] 12-23-2023 History of Presen t illness Narrative Reason for Appointment: Patient ID: Lenora Galaviz is a 38 y.o. female who presents for Routine Visit Patient presents today for Return OB appointment. Current Medications: has a current medication list which includes the following prescription(s): aspirin, ondansetron, and gummies. Medical History: Active Ambulatory Problems Diagnosis Date Noted Second trimester 11/20/2023 Resolved Ambulatory Problems Diagnosis Date Noted No Resolved Ambulatory Problems Past Medical History: Diagnosis Date Atyp squam cell of undet signfc cyto smr crvx (ASC-US) Atypical squamous cells cannot exclude high grade squamous intraepithelial lesion on cytologic smear of cervix (ASC-H) BMI 24.0-24.9, adult Encounter for gynecological examination (general) (routine) without abnormal findings H/O LEEP No family history on file. Social History Tobacco Use Smoking status: Former Types: Cigarettes Smokeless tobacco: Not on file Substance Use Topics Alcohol use: Never Drug use: Never Past Surgical History: Procedure Laterality Date CERVICAL BIOPSY W/ LOOP ELECTRODE EXCISION LEEP DILATION AND CURETTAGE x2 PAP SMEAR 11/07/2021 PAP SMEAR 05/04/2019 Abnormal- ASCUS No Known Allergies Review of Systems: Review of Systems Constitutional: Negative. HENT: Negative. Eyes: Negative. Respiratory: Negative. Cardiovascular: Negative. Gastrointestinal: Negative. Genitourinary: Negative. Musculoskeletal: Negative. Skin: Negative. Neurological: Negative. All other systems reviewed and are negative. Hematological: Negative. Endocrine: Negative. Allergic/Immunologic: Negative. Objective Physical Exam Constitutional: Appearance: Normal appearance. She is normal weight. HENT: Head: Normocephalic. Cardiovascular: Rate and Rhythm: Normal rate. Pulses: Normal pulses. Pulmonary: Effort: Pulmonary effort is normal. Breath sounds: Normal breath sounds. Abdominal: Palpations: Abdomen is soft. Musculoskeletal: General: Normal range of motion. Neurological: General: No focal deficit present. Mental Status: She is alert and oriented to person, place, and time. Psychiatric: Mood and Affect: Mood normal. Behavior: Behavior normal. Thought Content: Thought content normal. Judgment: Judgment normal. Vitals and nursing note reviewed. Vitals: Estimated body mass index is 21.46 kg/m as calculated from the following: Height as of 01/06/23: 5' 4 . Weight as of this encounter: 125 lb. BP: 104/68 Patient's last menstrual period was 07/03/2023. Assessment/Plan Encounter Diagnoses Name Primary? Third trimester Diabetes mellitus screening Patient presents today for a routine obstetrics appointment. Patient is currently 23w5d with a Estimated Date of Delivery: 04/15/24. Patient presents today for a routine obstetrics appointment. Patient is currently 23w5d . Patient states she is doing well but has complaints of being tired due to current . Patient has verbalizes frequent movement. labor precautions was discussed/given. Follow Up: Patient is to return to office in 2 week for routine OB appointment. Documented by ROMAN Valadez on behalf of: ROMAN Valadez documented in this encounter [facility] 11-26-2023 History of Presen t illness Narrative Summary: [facility] Genetic Counseling Note Images from the original note were not included. Provider at different site/location than patient. I confirmed the patient is located in the [facility]. Lenora L Guillaume is currently at home and provider at remote site. The patient consented to be treated electronically via this form of telemedicine. This visit was not related to an office visit or procedure in the past 7 days, and in-office follow up is not recommended in the next 24 hours. Video Visit via Real-time Synchronous Audiovisual Provider Location: [facility] AT [address] [id number] Patient Location: Patient's home Patient Location Guest Experience Specialist: None Video Visit Consent Statement: I discussed risks, benefits, and alternatives of a real-time synchronous audiovisual consultation with the patient (and any accompanying persons) including the risks that the patient's personal health details and medical records will be discussed over real-time, synchronous, interactive video/audio/telecommunication technology, the visit will not be recorded without the express consent of both the provider and the patient, and that there are some limitations compared to [id number] evaluations. We elected to proceed. Name: Lenora Galaviz : 1985 Date of Visit: 11/26/2023 Email: [email or web address] Preferred contact method: email Partner's Name: Mohit Age: 43 Requesting Physician: Lucia Toth MD [address] [place] [address] Reason for Referral: Lenora Galaviz is a 38 y.o. female who presented to [facility] Telemedicine Clinic. Lenora is here at the request of Lucia Toth MD due to abnormal non-invasive screening in . Obstetric and history: Estimated Date of Delivery: 04/15/24 based on 09/03/2023 ultrasound at 7w6d gestation to confirm IRMA. Gestational age: 19w6d OB History Para Term AB Living 6 2 2 3 2 SAB IAB Ectopic Multiple Live Births 2 # Outcome Date GA Lbr Marcin/2nd Weight Sex Delivery Anes PTL Lv 6 Current 5 Term 08/17/17 41w0d 2.948 kg M Vag-Spont CATRINA 4 AB 04/2016 3 Term 02/12/09 40w2d 3.033 kg F Vag-Spont CATRINA 2 AB 1 AB Current history is significant for: Circumvallate placenta and marginal cord insertion Past /delivery complications: None reported Medical History: Past Medical History: Diagnosis Date Atyp squam cell of undet signfc cyto smr anus (ASC-US) Atypical squamous cells cannot exclude high grade squamous intraepithelial lesion on cytologic smear of cervix (ASC-H) Ms. Galaviz denied a personal history of diabetes, hypertension, hypothyroidism, infertility and other chronic medical conditions. Medications: No current outpatient medications or facility-administered medications were updated during this visit. Please review referring office's note for the most up to date patient medication list. Exposures/Complications: Alcohol: NO Drugs: NO Cigarettes: NO X-Rays/CT/radiation: NO Illnesses: NO Infections: NO Rashes: NO Spotting/bleeding: NO Other exposures: NO Testing already completed during current : First Trimester Screen: NO Maternal Serum Screen: NO Non Invasive Screen: YES - positive results suggestive of at increased risk for trisomy of X chromosome (Triple X syndrome) Performing lab: [facility] Conditions screened: Trisomy 13, Trisomy 18, Trisomy 21, sex chromosome aneuploidies, 22q11.2 deletion syndrome sex predicted: female fraction: 18% Drawn on: 10/29/2023 Carrier Screening: YES - negative Performing lab: [facility] Test type: Tactical Air Control Party Manager Screen without X-linked Disorders (CF and SMA) Drawn on: 10/29/2023 CVS: NO Amniocentesis: NO TORCH Screening: YES Hepatitis B Surface Antigen: negative HIV 1&2 AB/AG: non-reactive Rubella immune IgG: non-reactive Syphilis: non-reactive HCV AB: non-reactive Other screening/testing: YES GLYCOHEMOGLOBIN A1C: 5.1% Ultrasounds: Ultrasound on 09/03/2023 at 7w6d gestation showed: 1) Single live intrauterine . Ultrasound on 10/29/2023 at 15w6d gestation showed: 1) Single intrauterine , size consistent with assigned IRMA. Psychosocial assessment: FOB involved. Lenora plans to continue the regardless of whether her baby has Triple X syndrome. She does not plan to have any more children after this. Family History / Pedigree: A three-generation family history was obtained for the patient and the father of the baby, Mohit. History was provided by the patient report unless otherwise noted. Of significance, this is Lenora and Mohit's fourth together. They have a healthy 6 year old son. They also had a miscarriage of unknown etiology around 4 weeks gestation and another miscarriage of unknown etiology around 11 weeks gestation. Lenora has a healthy 14 year old daughter and had a miscarriage of unknown etiology around 11 weeks gestation with a different partner. Mohit has 5 healthy sons and 3 healthy daughters with a different partner(s). Lenora reports that her mother has uterine fibroids. Other maternal family history was noncontributory to the genetics evaluation. Mohit is a 43 year old male with no major health concerns. Lenora reports he has a healthy family history. Other paternal family history was noncontributory to the genetics evaluation. Maternal ancestry: , Paternal ancestry: , Consanguinity: denied The history was otherwise unremarkable for developmental delays or intellectual disability, other defects, neural tube defects, multiple miscarriages, stillborns or deaths, and other known genetic conditions. Pedigree to be scanned and viewable under the media tab. Information Discussed: Genetic Assessment: We discussed that whenever a woman is there is a 3-5% chance of having a child with some type of defect and/or developmental delay. Maternal age, maternal health history and family history can increase this risk. Certain ultrasound markers or anomalies can also increase the risk of an underlying chromosome anomaly or genetic syndrome. Based on her maternal age, Ms. Galaviz, the patient's midtrimester risk for Down syndrome is 1 in 153, Trisomy 18 is 1 in 600, Trisomy 13 is 1 in 2857, and any chromosomal abnormality at term is 1 in 122 (from Perinatology calculator). As women age, so do their eggs, making pregnancies more prone to errors in cell division as women get older. The most common, viable aneuploidies include Down Syndrome (Trisomy 21), Trisomy 18, Trisomy 13 and differences in the sex chromosomes. Less than 50% of babies with Trisomy 21 survive postnatally, and about 50% show findings on ultrasound. If individuals with Trisomy 21 make it to term, they may present with some challenges including but not limited to heart defects, GI anomalies, intellectual and developmental disabilities, and a limited life span. About 10% of babies with Trisomy 18 or Trisomy 13 survive postnatally, and about 90% have defects identifiable on ultrasound. Most commonly, babies with Trisomy 18 or Trisomy 13 will not survive after 1 year of life due to severe defects. Most sex chromosome aneuploidies have milder symptoms if they survive such as mild developmental and learning disabilities, behavioral problems, and fertility issues. There are different modalities to screen and diagnose these problems antenatally. Some parents may choose to know this information to make a decision regarding termination of , prepare themselves for a baby with special needs, or they may opt not to have this information available antenatally. We reviewed Lenora's non-invasive screening results in detail. This is a screening test that uses cell-free DNA (cfDNA, maternal and placental DNA in circulation) to screen for aneuploidies, and can be done at 10+ weeks gestation. This testing screens for common autosomal aneuploidies (Trisomy-21, Trisomy-18, Trisomy-13), sex chromosome aneuploidies (Monosomy X (M-X), XXX, XXY, XYY), and the option of adding on 22q11.2 deletion syndrome. The fraction is calculated based on the cfDNA present in the sample, and sufficient placental DNA is needed to analyze the sample. This testing is nondiagnostic and should be interpreted with caution, as false positive results are possible. Lenora's results indicate the is high risk to be affected with Triple X syndrome. Triple X syndrome is characterized by the presence of an extra X chromosome. This condition affects about 1 in 1,000 females, but is likely under diagnosed. We discussed the variability with triple X syndrome. We reviewed congenital anomalies are not typically associated with triple X syndrome although there may be an increased risk for kidney abnormalities. Babies with triple X may have hypotonia (low muscle tone) and developmental delays (particularly delayed motor skills and speech). Intellectual disabilities (most mild) can also be a feature of triple X syndrome, although some may not. Women/girls with triple X may be at a higher risk for behavior/mood disorders such as anxiety,depression, ADD/ADHD, and others. Rapid growth between ages 4-13 years and tall stature is common. These individuals may also be more susceptible to seizures. Triple X syndrome is not typically inherited; it occurs sporadically due to random error in cell division. The risk for future pregnancies to be affected with this condition is low, typically ~1%. We additionally discussed Lenora's carrier screening results in detail. Carrier screening is a type of genetic testing often utilized by those that are or desire that identifies individuals who are heterozygous (carry 1 mutation) in an autosomal recessive or X-linked condition. Carriers are typically asymptomatic and family history is not a good indicator of carrier status. Risks, benefits, and limitations of carrier screening were discussed in detail. Lenora's results indicate she is not a carrier for CF or SMA. The father of the was reported to be 40 years old or greater at the time of conception. Advanced paternal age (greater than or equal to age 40) is associated with a slight increased risk of new gene mutations. ([place] [employer] Statement on Guidance for Genetic Counseling in Advanced Paternal Age, 2008). Examples of conditions associated with advanced paternal age include but are not limited to craniosynostosis syndromes, neurofibromatosis type I, and some skeletal dysplasias (achondroplasia, thanatophoric dysplasia). Recent literature has also suggested a potentially increased risk for Down syndrome with advanced paternal age. Given the wide range of genetic diseases which may be related to advanced paternal age, there is currently no single test available for screening or diagnosis. We reviewed there are numerous etiologies for multiple miscarriages including but not limited to maternal illnesses, hormonal issues, and structural abnormalities of the uterus. We reviewed that in 2-5% couples who have experienced multiple losses (? 2), one partner will have a balanced chromosomal translocation. A balanced translocation occurs when part of a chromosome breaks off and attaches to another chromosome. These individuals do not have any symptoms because they still have the right amount of chromosomal material, however, it is rearranged. Balanced translocation carriers are at increased risk for miscarriage and for having offspring with unbalanced chromosomes. Offspring with unbalanced chromosomes are at increased risk for defects, intellectual disabilities, developmental delay, and dysmorphic features. Based on the chromosome breakpoints of the specific translocation and maternal age at delivery, software to to predict the the risk of miscarriage and unbalanced chromosomes in each can be calculated. diagnosis is available when a parent is a balanced translocation carrier. Based on the risks to the , testing offered today included: Amniocentesis: This diagnostic testing is usually offered as an option for pregnancies after 15 weeks gestation after screening or ultrasound findings indicate an increased risk of aneuploidy, ONTDs, sex chromosome differences, or inheriting a genetic condition. This is invasive testing, meaning a needle guided by ultrasound is inserted into the maternal abdomen and amniotic fluid (the fluid surrounding the fetus), which includes DNA is collected and used for genetic testing. Amniocentesis can also measure the amount of AFP and other substances specific to open neural tube defects in the amniotic fluid.The risk of miscarriage, delivery, and infection is about 1 in 500 to 1 in 1500. We reviewed the options of rapid FISH analysis (for chromosomes 13, 18, 21, X and Y), karyotype, and SNP (single nucleotide polymorphism) chromosomal microarray analysis. SNP microarray is a high resolution test that can detect aneuploidy, triploidy, and small chromosomal gains or losses, known as copy number variants. Large regions of homozygosity can also be identified, indicating uniparental disomy or shared parental ancestry. A chromosomal microarray analysis may find changes/variants that are of unknown clinical significance. In addition, variants may be identified associated with adult onset conditions and increased risk for mental health disorders. A chromosomal microarray will not detect balanced or low-level mosaic chromosome changes, or single gene disorders. Normal results not guarantee the of a healthy baby. Rarely because of maternal cell contamination of the culture, cultured cells may not reflect the true status of the fetus. Expanded carrier screening: There are many different options as far as how many different conditions can be screened for ranging from the most common conditions (hemoglobinopathies, SMA, and CF) to 500+ genetic conditions. Larger carrier screening panels exist if the patient desires. Risks, benefits, and limitations of carrier screening were discussed in detail. Results typically take 2-3 weeks to come back. Parental chromosome analysis/karyotype: This testing looks at all of an individuals chromosomes and can be utilized to help determine the etiology of recurrent loss. It can detect balanced translocations and rearrangements, as well as deletions and duplications greater than ~5 Mb. Karyotype can also cotton picking machine operator mosaicism potentially as low as ~10%. Results take anywhere from 5 days to 2 weeks to come back. Plan of Care: 1. Amniocentesis, expanded carrier screening, and parental karyotypes discussed and declined. 2. Continue to monitor the via ultrasound. Anatomy scan to be completed 18-22 weeks gestation. 3. Recommended AFP to be drawn at 15-22 weeks gestation. 4. Recommended genetics evaluation for Triple X syndrome. 5. Patient diagnosis: abnormal genetic test in , advanced maternal age, recurrent loss 6. Patient resources: Trisomy X - Symptoms, Causes, Treatment ENZO (rarediseases.org) Triple_X_syndrome Trisomy_X [email or web address].pdf (rarechromo.org) I personally spent 30 minutes in [id number] time with this patient. I provided genetic counseling services, including obtaining a structured family history, analysis of genetic and other risks, counseling of the patient, review of medical information, review of previous test results and discussion of genetic testing options. I discussed the benefits and limitations of genetic testing. I discussed the limitations of insurance coverage. If prior authorization is needed this may extend the turnaround time. The family was provided the opportunity to ask questions and all questions were answered. The family was encouraged to call or email their genetic counselor at [phone] or [email or web address] if any additional questions or concerns should arise. PATRICIA Grant Licensed, Certified Genetic Counselor documented in this encounter [facility] 11-11-2023 Miscellaneous Notes Attempted to call patient regarding carrier results. No answer, left VM to call back. documented in this encounter [facility] 11-11-2023 Telephone encounter Note Attempted to call patient regarding carrier results. No answer, left VM to call back. 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, antepartum documented in this encounter [facility]* Diagnosis Third trimester state, incidental Diabetes mellitus screening Screening for diabetes mellitus documented in this encounter [facility]* Diagnosis Multigravida of advanced maternal age in second trimester- Primary Abnormal genetic test during Circumvallate placenta in second trimester Thyroid disease affecting 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, antepartum 24 weeks gestation of documented in this encounter [facility] SystemInstructionsNot on filedocumented in this encounter [facility] SystemInstructionsNot on filedocumented in this encounter [facility] SystemInstructionsNot on filedocumented in this encounter [facility] SystemInstructionsNot on filedocumented in this encounter [facility] SystemReason for referral (narrative)* Consultation (Routine) - Pending Review Specialty Diagnoses / Procedures Referred By Contac t Referred To Contact Maternal and Medicine Diagnoses Multigravida of advanced maternal age in second trimester Abnormal genetic test during Lucia Toth MD [address], [address] [place] [id number] [facility] [address] [place] [address] Referral ID Status Reason Start Date Expiration Date Visits Requested Visits Authorized [id number] Pending Review Specialty Services Required 3 11/03/2024 1 1 [facility] for visit Narrative* Consultation (Routine) - Pending Review Specialty Diagnoses / Procedures Referred By Contac t Referred To Contact Maternal and Medicine Diagnoses Multigravida of advanced maternal age in second trimester Abnormal genetic test during Lucia Toth MD [address], [address] [place] [phone] [facility] [address] [place] [address] Referral ID Status Reason Start Date Expiration Date Visits Requested Visits Authorized [id number] Pending Review Specialty Services Required 3 11/03/2024 1 1 [facility] Summary Purpose Family History No Family History Records FoundNo Family History Records FoundNo Family History Records FoundNo Family History Records Found Advance Directives No Advanced Directives Records FoundNo Advanced Directives Records FoundNo Advanced Directives Records FoundNo Advanced Directives Records Found Additional Source Comments INFORMATION SOURCE (unrecogn ized section and content) DATE CREATED AUTHOR 01/17/2023 [facility] DATE CREATED AUTHOR AUTHOR'S ORGANIZ ATION 12/04/2023 [facility] DATE CREATED AUTHOR AUTHOR'S ORGANIZ ATION 01/06/2024 [facility] DATE CREATED AUTHOR AUTHOR'S ORGANIZ ATION 02/24/2024 [facility] EPIC Reason for Visit (unrecogniz ed section and content) Reason Comments Routine Visit Reason Comments Marginal Insertion of Umbilical Cord Advanced Maternal Age Circumvallate Placenta Care Teams (unrecognized sec tion and content) [employer] Relationship Specialty Start Date End Date No Pcp, [place] [address] PCP - General Family Medicine 12/01/23 FOR RECORDS PERTAINING TO PATIENTS WHO ARE OR HAVE BEEN ENROLLED IN A CHEMICAL DEPENDENCY/SUBSTANCEABUSE PROGRAM, SOME INFORMATION MAY BE OMITTED. This clinical summary was aggregated from multiple sources. Caution should be exercised in using it in the provision of clinical care. This summary normalizes information from multiple sources, and as a consequence, information in this document may materially change the coding, format and clinical context of patient data. In addition, data may be omitted in some cases. CLINICAL DECISIONS SHOULD BE BASED ON THE PRIMARY CLINICAL RECORDS. [employer] [facility]. provides no warranty or guarantee of the accuracy or completeness of information in this document.
--- NOTE | 2024-03-09 19:03 | US_ITS ---
[address] [address] Patient Name: YULIANA FLORES MRN: [facility]:[id number] date: 1985 Sex: F Assigned Patient Location: [facility] Current Patient Location: Accession/Order Number: [id number] Exam Date: 03/09/2024 19:08 Report Date: 03/10/2024 07:25 At the request of: LILIAN VELASCO Procedure: US OB BPP w non-stress EXAMINATION: US OB BPP w non-stress HISTORY: MULTIGRAVIDA OF ADVANCED MATERNAL AGE O09.523 COMPARISON: No relevant comparison available. TECHNIQUE: Ultrasound biophysical profile was performed in the radiology department. FINDINGS: BREATHING MOVEMENTS: 2.0 GROSS BODY MOVEMENTS: 2.0 TONE: 2.0 QUALITATIVE AMNIOTIC FLUID VOLUME: 2.0 PRESENTATION: CEPHALIC HEART RATE: 125.0 bpm H.B./min AMNIOTIC FLUID VOLUME: 15.2 cm cm GESTATIONAL AGE: 34 weeks 5 days CONCLUSION: Total biophysical profile score: 8.0 Electronically authenticated by: KIYA FARMER Date: 03/10/2024 07:25
--- NOTE | 2024-03-09 19:04 | US_ITS ---
[address] [address] Patient Name: YULIANA FLORES MRN: [id number] date: 1985 Sex: F Assigned Patient Location: [facility] Current Patient Location: Accession/Order Number: [id number] Exam Date: 03/09/2024 19:08 Report Date: 03/10/2024 07:28 At the request of: LILIAN VELASCO Procedure: US OB growth EXAMINATION: US OB growth HISTORY: MULTIGRAVIDA OF ADVANCED MATERNAL AGE O09.523 COMPARISON: 01/27/2024 FINDINGS: Heart Rate: 125.0 bpm Amniotic Fluid Volume: 15.2 cm Number: 1.0 Position: Cephalic presentation, longitudinal lie Maximum Vertical Pocket: 5.9 cm cm 3.7 cm cm 3.0 cm cm 2.5 cm cm BIOMETRY: BPD: 8.3 cm cm; 33 weeks 2 days; 14% HC: 31.3 cmcm; 35 weeks 1 days , 25% AC: 29.5 cm cm; 33 weeks 3 days, 21% FL: 6.2 cm cm; 32 weeks 1 days; < 3.0 % % EFW: 2150.6 grams, 4 lbs. 12 oz., 12% FL/AC: 21.1 FL/BPD: 75.1 HC/AC: 1.1 GESTATIONAL AGE: Age by EDC: 34 weeks 5 days IRMA by EDC: 04/15/2024 Age by US: 33 weeks 4 days IRMA by US: 04/23/2024 US/US OB growth IMPRESSION: Femur length less than the 3rd percentile Estimated weight 12 percentile Electronically authenticated by: KIYA FARMER Date: 03/10/2024 07:28
[2024-03-09 19:50] VITALS: BP 107/62; PULSE 71
== END 2024-03-09 20:23 | disposition home or self-care (01) ==
LOC: US 18:52 → FBC 18:58
PROVIDERS: Visit Provider Obstetrics & Gynecology
DX: E61.1 Iron deficiency (principal); D64.9 Anemia, unspecified; O09.523 Supervision of elderly multigravida, third trimester; Z3A.34 34 weeks gestation of pregnancy
CPT/HCPCS: 36415; 59025; 76816; 76818; 82728; 84466

== ENCOUNTER 2024-03-09 09:53 | Outpatient (OUT) | payer BC, OTHER, SELFPAY ==
[2024-03-10 05:07] LABS: Transferrin 354 mg/dL (192-364)
== END 2024-03-09 09:54 | disposition home or self-care (01) ==
LOC: LAB 09:57
PROVIDERS: Visit Provider Obstetrics & Gynecology
DX: E61.1 Iron deficiency (principal); D64.9 Anemia, unspecified
CPT/HCPCS: 36415; 82728; 84466

== ENCOUNTER 2024-03-12 09:10 | Outpatient (OUT) | payer BC, OTHER, SELFPAY ==
--- OUTSIDE RECORDS SUMMARY | 2024-03-12 09:16 | XMS_ITS | CCD ---
Author Organization [facility] Care Team Providers Care Fiction And Nonfiction Author Name Role Phone AKIKO ., DR SÁNCHEZ [...] MAMTA Attending Unavailable BONI, MAMTA Attending Unavailable KRISTA, LILIAN Attending Unavailable Medications Current Medications Medication Drug [...] Translations: [24 weeks gestation of ] Onset: 12-29-2023 Episodic Residual codes; unclassified (1 source) 15 [...] UA Negative Negative - 4(70) +++ mg/dL [facility] Blood, UA Negative Negative - 50 Ari/mcL [facility] Clarity, UA Clear [facility] Color, UA Yellow [facility] Glucose, UA Negative Negative - 1999(110) ++++ mg/dL [facility] Interpretation and review of laboratory results Normal [facility] Ketones, UA Negative Negative - 160(16) ++++ mg/dL [facility] Leukocytes, UA Negative Negative - 500+++ Panchito/mcL [facility] Nitrite, UA Negative Negative - Positive [facility] pH, UA 7.5 5 - 9 [facility] Protein, UA Negative Negative - 1999(20) ++++ mg/dL [facility] Spec Grav, UA 1.015 1 - 1.03 [facility] Urobilinogen, UA 0.2 0.2 - 12 mg/dL [facility] FREE T3on 10-29-2023 Free T3 [Mass/Vol] 2.72 pg/mL Normal 2.50-3.90 [facility] Comment on above: Performed By: #### 3 051-0, THYR #### [facility] ([id number]) [address], [address] [place] [address] THYROID PROFILEon 10-29-2023 Free T4 [Mass/Vol] 0.85 ng/dL Normal 0.61-1.60 [facility] Comment on above: Performed By: #### 3 051-0, THYR #### [facility] ([id number]) [address], [address] [place] [address] TSH 0.18 uIU/mL Low 0.49-4.67 [facility] Comment on above: Performed By: #### 3 051-0, THYR #### [facility] ([id number]) [address], [address] [place] [address] Thyroid stimulating immunogl obulins Qn (S)on 10-29-2023 TSI See Below Normal [facility] Comment on above: Result Comment: NOTE TEST [...] Clinical correlation is required. Test Performed By: [facility] [address] [place] [address] Retina Subspecialist: Jose Enrique Samuel III, M.D. [place] #[id number] Performed By: #### 3 051-0, THYR #### [facility] ([id number]) [address], [address] [place] [address] PAP ACOG PANEL 1: 30 to 65on 01-15-[address] [facility] Comment on above: Result Comment: Perf ormed at: WB Performed By: #### [id number] #### [facility] [address] [place] [address] Dr. Ata Rao Age Gdln ACOG Testing 30-[address] [facility] Comment on above: Performed By: #### 4 [id number] #### [facility] [address] [place] [address] Dr. Ata Rao DIAGNOSIS: Comment Normal [facility] Comment on above: Result Comment: NEGA TIVE FOR INTRAEPITHELIAL LESION OR MALIGNANCY. CELLULAR CHANGES ASSOCIATED WITH INFLAMMATION ARE PRESENT. THIS SPECIMEN WAS RESCREENED PART OF OUR DIATHERMY EQUIPMENT REPAIRER PROGRAM. Performed at: WB Performed By: #### 4 [id number] #### [facility] [address] [place] [address] Dr. Ata Rao HPV Aptima Negative Normal Negative [facility] Comment on above: Result Comment: This nucleic acid amplification test detects fourteen high-risk HPV types (16,18,31,33,35,39,45,51,52,56,58,59,66,68) without differentiation. Performed at: =G Performed By: #### 4 [id number] #### [facility] [address] [place] [address] Dr. Ata Rao HPV Genotype Reflex Comment Normal [facility] Comment on above: Result Comment: Crit eria not met, HPV Genotype not performed. Performed at: WB Performed By: #### [id number] #### [facility] [address] [place] [address] Dr. Ata Rao Methodology: Comment Normal [facility] Comment on above: Result Comment: This liquid based ThinPrep(R) pap test was screened with the use of an image guided system. Performed at: WB Performed By: #### 4 [id number] #### [facility] [address] [place] [address] Dr. Ata Rao Note: Comment Normal [facility] Comment on above: Result Comment: The Pap smear is a screening test designed to aid in the detection of premalignant and malignant conditions of the uterine cervix. It is not a diagnostic procedure and should not be used as the sole means of detecting cervical cancer. Both false-positive and false-negative reports do occur. . Performed at: WB Performed By: #### 4 [id number] #### [facility] [address] [place] [address] Dr. Ata Rao Performed by: Comment Normal [facility] Comment on above: Result Comment: Matt Tang, Skull Grinder (ASCP) Performed at: WB Performed By: #### 4 [id number] #### [facility] [address] [address] [address] Ata Rao QC reviewed by: Comment Normal [facility] Comment on above: Result Comment: Jeanette Zhang, Supervisory Skull Grinder (ASCP) Performed at: WB Performed By: #### 4 [id number] #### [facility] [address] [address] [address] Ata Rao Specimen adequacy: Comment Normal [facility] Comment on above: Result Comment: Sati sfactory for evaluation. Endocervical and/or squamous metaplastic cells (endocervical component) are present. Performed at: WB Performed By: #### 4 [id number] #### [facility] [address] [address] [address] Ata Rao Vital Signs Date Time Vital Sign Value Performing Clinician Faci lity 12-29-2023 13:10-0500 Body height 163.8 cm Isaias Lujan MD Work Phone: [facility] 12-29-2023 13:10-0500 Body mass index (BMI) [Ratio] 21.26 kg/m2 Isaias Lujan MD Work Phone: [facility] 12-29-2023 13:10-0500 Body weight 57.06 kg Isaias Lujan MD Work Phone: [facility] 12-29-2023 13:10-0500 Diastolic blood pressure 54 mm[Hg] Isaias Lujan MD Work Phone: [facility] 12-29-2023 13:10-0500 Heart rate 82 /min Isaias Lujan MD Work Phone: [facility] 12-29-2023 13:10-0500 Systolic blood pressure 112 mm[Hg] Isaias Lujan MD Work Phone: [facility] 12-23-2023 11:32-0500 Body mass index (BMI) [Ratio] 21.46 kg/m2 Mamta OWENS Work Phone: [facility] 12-23-2023 11:32-0500 Body weight 56.7 kg Mamta OWENS Work Phone: [facility] 12-23-2023 11:32-0500 Diastolic blood pressure 68 mm[Hg] Mamta OWENS Work Phone: [facility] 12-23-2023 11:32-0500 Systolic blood pressure 104 mm[Hg] Mamta OWENS Work Phone: [facility] Encounters Encounter Date Encounter Type Care Provider Facility Start: 03-08-2024 End: 03-08-2024 ambulatory LILIAN KRISTA Not Available Start: 02-23-2024 End: 02-23-2024 ambulatory MAMTA PLATA Not Available Start: 02-04-2024 End: 02-04-2024 ambulatory LILIAN KRISTA Not Available Start: 01-21-2024 End: 01-21-2024 ambulatory LILIAN KRISTA Not Available Start: 12-29-2023 End: 12-30-2023 ambulatory ISAIAS [facility] Start: 12-29-2023 End: 12-29-2023 Office outpatient visit 25 minutes Isaias Lujan MD Work Phone: [facility] Comment on above: Multigravida of adva nced maternal age in second trimester (Primary Dx); Abnormal genetic test during ; Circumvallate placenta in second trimester; Thyroid disease affecting ; 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, antepartum; 24 weeks gestation of Start: 12-23-2023 End: 12-23-2023 ambulatory MAMTA PLATA Not Available Start: 12-23-2023 End: 12-23-2023 flow sheet Mamta OWENS Work Phone: [facility] Comment on above: Third trimester preg lalit; Diabetes mellitus screening Start: 12-21-2023 Chart abstracting Mamta OWENS Work Phone: [facility] Start: 12-01-2023 End: 12-02-2023 ambulatory NIKOLINA P DOCHEVA [facility] Start: 11-26-2023 End: 11-26-2023 ambulatory NIKOLINA P DOCHEVA [facility] Start: 11-26-2023 End: 11-26-2023 Telemedicine consultation with patient Lucia Toth MD Work Phone: [facility] Comment on above: Abnormal genetic sadi t during (Primary Dx); Multigravida of advanced maternal age in second trimester; 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, antepartum Start: 11-24-2023 End: 11-24-2023 ambulatory LILIAN KING Not Available Start: 11-11-2023 Telephone encounter Ashley Higgins RN Mat ern[facility]- [facility] at [facility] Start: 11-04-2023 Orders Only Radha Sy RN Materna l- [facility] at [facility] Comment on above: Multigravida of adva nced maternal age in second trimester (Primary Dx); Abnormal genetic test during Start: 10-29-2023 End: 10-31-2023 ambulatory NOT IN SYSTEM REF PROV [facility] Start: 10-27-2023 End: 10-27-2023 ambulatory MAMTA PLATA Not Available Start: 09-24-2023 End: 09-24-2023 ambulatory LILIAN KING Not Available Start: 01-06-2023 End: 01-06-[address] PRINCESS WHARTON . Facility: Procedures Date Procedure Procedure Detail Performing Clinician Start: 12-23-2023 Urnls dip stick/tabl et rgnt non-auto w/o micrscp Mamta OWENS Work Phone: Plan of Treatment Date Care Activity Detail Author Start: 12-29-2024 Tobacco Screening Tobacco Screening [facility] Start: 10-30-2024 Tobacco Screening Tobacco Screening [facility] Start: 02-08-2024 End: 02-08-2024 Patient encounter procedure 02/08/2024 9:00 AM EDT Office Visit [facility] [address] [place] [phone] Lilian King, DO [address] [place] [address] [place] [address] [facility] Start: 01-21-2024 End: 01-21-2024 Patient encounter procedure 01/21/2024 9:40 AM EDT Routine [facility] [address] [facility] [place] [id number] Lilian King DO [address] [place] [place] [address] [facility] Start: 12-23-2023 End: 12-23-2024 CBC panel - Blood by Automated count CBC Lab Routine Diabetes mellitus screening Expected: 12/23/2023 (Approximate), Expires: 12/23/2024 [facility] Work Phone: Comment on above: Expected: 12/23/2023 (Approximate), Expires: 12/23/2024 Start: 12-23-2023 End: 12-23-2024 Measurement of glucose 1 hour after glucose challenge for glucose tolerance test Glucose tolerance, 1 hour Lab Routine Diabetes mellitus screening Expected: 12/23/2023 (Approximate), Expires: 12/23/2024 [facility] Comment on above: Expected: 12/23/2023 (Approximate), Expires: 12/23/2024 Start: 12-23-2023 End: 12-23-2023 Patient encounter procedure 12/23/2023 11:20 AM EST Routine [facility] [address] [facility] [place] [id number] Mamta Plata PA [address] [place] [address] Third trimester [facility] Comment on above: Third trimester preg lalit Start: 12-03-2023 End: 12-03-2023 Patient encounter procedure 12/03/2023 11:00 AM EST Appointment [facility] [place] [address] [place] [address] [facility] [place] Start: 12-01-2023 End: 12-01-2023 Patient encounter procedure 12/01/2023 1:30 PM EST Appointment [facility] [address] [facility] [place] [address] [facility] Start: 11-26-2023 End: 11-26-2023 Telemedicine consultation with patient 11/26/2023 3:00 PM EST Telemedicine [facility] [address] [place] [address] Lucia Toth MD [address] [facility], [address] [place] [address] [facility] [address] [place] [address] [facility] Start: 07-10-2023 Influenza vaccination Influenza Vacc ine [facility] Start: 2008 Screening for malign ant neoplasm of cervix Pap Smear [facility] Start: 2005 Adult BMI Screening Adult BMI Screen ing [facility] Start: 1999 Depression Screening Depression Scre ening [facility] Start: 1998 DTaP,Tdap and Td Vaccines (5 - Tdap) DTaP,Tdap and Td Vaccines (5 - Tdap) [facility] Payers Date Payer Category Payer Medicaid [facility]ICAID [facility] M EDICAID [id number] 2023-Present [phone] [address] [place] [address] [id number] 2023 Medicaid [id number] 2019 Unknown [id number] [id number] [id number] 2019 Unknown [id number] 1987 Unknown [id number] 2.16.840.1.517848.3.579.2.593 1987 Unknown [id number] 2.16.840.1.969867.3.579.2.1286 1987 Unknown [id number] 2.16.840.1.523003.3.579.2.1286 1987 Unknown [id number] 2.16.840.1.679331.3.579.2.1285 1987 Unknown [id number] 2.16.840.1.726981.3.579.2.1286 1987 Unknown [id number] 2.16.840.1.797858.3.579.2.1285 1987 Unknown [id number] 2.16.840.1.637509.3.579.2.6 1987 Unknown [id number] 2.16.840.1.180724.3.579.2.1258 1987 Unknown [id number] 2.16.840.1.019178.3.579.2.9 1987 Unknown [id number] 2.16.840.1.428701.3.579.2.9 1987 Unknown [id number] 2.16.840.1.584261.3.579.2.9 1987 Unknown [id number] 2.16.840.1.447672.3.579.2.1258 1987 Unknown [id number] 2.16.840.1.848180.3.579.2.9 1987 Unknown [id number] 2.16.840.1.223059.3.579.2.1258 1987 Unknown [id number] 2.16.840.1.032557.3.579.2.1259 1959 Unknown [id number] Social History Date Type Detail Facility Start: 05-24-2023 End: 10-26-2023 Tobacco smoking status [facility] Ex-smoker [facility] History of tobacco use Current smoker [facility] History of tobacco use Cigarette Smoker P [facility] Start: 10-30-2023 End: 11-24-2023 Alcohol intake Lifetime non-drinker (finding) [facility] Start: 10-30-2023 End: 12-29-2023 History of Social function [facility] Start: 10-30-2023 End: 12-29-2023 Tobacco use panel [facility] Housing Instability Unknown [facility] Start: 07-24-2023 [facility] Start: 1985 Sex Assigned At Not on file P [facility] Start: 1985 Sex Assigned At [facility] Start: 05-26-2023 Gender identity Identifies as female gender (finding) [facility] Start: 12-29-2023 Alcohol intake Ex-drinker (finding) [facility] Clinical Notes 11-11-2023 to 12-29-2023 [facility] Prabhjot Lujan MD - 12/29/2023 2:00 PM Tristan Gonzalez RN - 12/29/2023 2:00 PM ROMAN Granados - 12/23/2023 11:20 AM PATRICIA Jeffrey - 11/26/2023 3:00 PM EST Note Date & Type Note Facility 12-29-2023 History of Presen t illness Narrative [facility] Maternal- Medicine Office Visit Note HPI: Lenora [...] continue with routine care in your office [facility], the CDC, and other organizations representing maternal and public health professionals recommend that , , and lactating people and those considering receive the COVID-19 vaccination. Vaccination is the best method to reduce maternal and complications of SARS-CoV-2 infection. This document was created with [employer] technology. Though I make every effort to review the dictation as it is transcribed, on occasion the spoken word can be misinterpreted by the technology leading to inappropriate words, phrases, or sentences. This note is addressed to the requesting provider as a consultation for clinical guidance. Specific medical abbreviations are occasionally used and those are generally approved by the [place]?Board of?Obstetrics and?Gynecology?as well as?Merly s abbreviations. The above plan of care was based solely on the diagnoses for which a consultation was requested. ?More frequent testing may be indicated based on her other medical/obstetrical conditions. The management of other or medical conditions is beyond the scope of requested consultation and will continue to be followed by the primary work counselor or primary care provider. Thank you for [...] procedures Referring and communicating with other health career development facilitator (not separately reported) Documenting clinical information in [...] provider today? No [facility] History of Presen t illness Narrative [...] of: ROMAN Valadez documented in this encounter [facility] 11-26-2023 History of Presen t illness Narrative Summary: [facility] Genetic Counseling Note Images from the original note were not included. Provider at different site/location than patient. I confirmed the patient is located in the [facility]. Lenora L Galaviz is currently at home and provider at remote site. The patient consented to be treated electronically via this form of telemedicine. This visit was not related to an office visit or procedure in the past 7 days, and in-office follow up is not recommended in the next 24 hours. Video Visit via Real-time Synchronous Audiovisual Provider Location: [facility] MATERNAL- MEDICINE AT [address] [id number] Patient Location: Patient's home Patient Location Construction Supervisor/Carpenter: None Video Visit Consent Statement: I discussed [...] that there are some limitations compared to [id number] evaluations. We elected to proceed. Name: Lenora Galaviz : 1985 Date of Visit: 11/26/2023 Email: Preferred contact method: email Partner's Name: Mohit Age: 45 Requesting Physician: Lucia Toth MD [address] [place] [address] Reason for Referral: Lenora Galaviz is a 38 y.o. female who presented to [facility] Telemedicine Clinic. Lenora is here at [...] - negative Performing lab: [facility] Test type: Senior Buyer Screen without X-linked Disorders (CF and SMA) [...] neural tube defects, multiple miscarriages, stillborns or infant deaths, and other known genetic conditions. Pedigree [...] slight increased risk of new gene mutations. ([place] [employer] Statement on Guidance [...] greater than ~5 Mb. Karyotype can also spanish moss picker mosaicism potentially as low as ~10%. Results [...] (rarechromo.org) I personally spent 30 minutes in [id number] time with this patient. I provided genetic [...] call or email their genetic counselor at [phone] or [email or web address] if any additional questions or concerns should arise. PATRICIA Grant Licensed, Certified Genetic Counselor documented in this encounter [facility] 11-11-2023 Miscellaneous Notes Attempted to call patient regarding carrier results. No answer, left VM to call back. documented in this encounter [facility] 11-11-2023 Telephone encounter Note Attempted to call patient regarding carrier results. No answer, left VM to call back. 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, antepartum 24 weeks gestation of documented in this encounter [facility] [place] SystemInstructionsNot on filedocumented in this encounter [facility] filedocumented in this encounter [facility] [place] SystemInstructionsNot on filedocumented in this encounter [facility] on filedocumented [facility] Consultation (Routine) - Pending Review Specialty Diagnoses / Procedures Referred By Contac t Referred To Contact Maternal and Medicine Diagnoses Multigravida of advanced maternal age in second trimester Abnormal genetic test during Lucia Toth MD [address], [address] [place] [address] [facility] Maternal Med [address] [place] [address] Referral ID Status Reason Start Date Expiration Date Visits Requested Visits Authorized [id number] Pending Review Specialty Services Required 3 11/03/2024 1 1 [facility] for visit Narrative* Consultation (Routine) - Pending Review Specialty Diagnoses / Procedures Referred By Contac t Referred To Contact Maternal and Medicine Diagnoses Multigravida of advanced maternal age in second trimester Abnormal genetic test during Lucia Toth MD [address], [address] [place] [address] [facility] Med [address] [place] [address] Referral ID Status Reason Start Date Expiration Date Visits Requested Visits Authorized [id number] Pending Review Specialty Services Required 3 11/03/2024 1 1 [facility] Summary Purpose Family History No Family History Records FoundNo Family History Records FoundNo Family History Records FoundNo Family History Records Found Advance Directives No Advanced Directives Records FoundNo Advanced Directives Records FoundNo Advanced Directives Records FoundNo Advanced Directives Records Found Additional Source Comments INFORMATION SOURCE (unrecogn ized section and content) DATE CREATED AUTHOR [facility]/17/2023 [facility] DATE CREATED AUTHOR AUTHOR'S ORGANIZ ATION 12/04/2023 [facility] DATE CREATED AUTHOR AUTHOR'S ORGANIZ ATION 01/06/2024 [facility] DATE CREATED AUTHOR AUTHOR'S ORGANIZ ATION 03/09/2024 [facility] EPIC Reason for Visit (unrecogniz ed section and content) Reason Comments Routine Visit Reason Comments Marginal Insertion of Umbilical Cord Advanced Maternal Age Circumvallate Placenta Care Teams (unrecognized sec tion and content) Fiction And Nonfiction Author Relationship Specialty Start Date End Date No Pcp, [place] [address] PCP - General Family Medicine 12/01/23 FOR [...] BE BASED ON THE PRIMARY CLINICAL RECORDS. [facility]. provides no warranty or guarantee of the accuracy or completeness of information in this document.
[2024-03-12 17:38] VITALS: BP 119/77; PULSE 85
== END 2024-03-12 18:28 | disposition home or self-care (01) ==
LOC: FBCO 09:14 → FBC 17:33
PROVIDERS: Visit Provider Obstetrics & Gynecology
DX: O99.283 Endocrine, nutritional and metabolic diseases complicating pregnancy, third trimester (principal)
CPT/HCPCS: 59025

== ENCOUNTER 2024-03-16 07:35 | Outpatient (OUT) | payer BC, OTHER, SELFPAY ==
--- OUTSIDE RECORDS SUMMARY | 2024-03-16 07:37 | XMS_ITS | CCD ---
Author Organization [facility] Care Team Providers Care Split And Drum Room Supervisor Name Role Phone AKIKO ., DR SÁNCHEZ [...] UA Negative Negative - 4(70) +++ mg/dL [facility] Blood, UA Negative Negative - 50 Ari/mcL [facility] Clarity, UA Clear [facility] Healthca re Color, UA Yellow [facility] Healthcar e Glucose, UA Negative Negative - 1999(110) ++++ mg/dL [facility] Interpretation and review of laboratory results Normal [facility] Ketones, UA Negative Negative - 160(16) ++++ mg/dL [facility] Leukocytes, UA Negative Negative - 500+++ Panchito/mcL [facility] Nitrite, UA Negative Negative - Positive [facility] pH, UA 7.5 5 - 9 [facility] Healthcar e Protein, UA Negative Negative - 1999(20) ++++ mg/dL [facility] Spec Grav, UA 1.015 1 - 1.03 [facility] Urobilinogen, UA 0.2 0.2 - 12 mg/dL [facility] FREE T3on 10-29-2023 Free T3 [Mass/Vol] 2.72 pg/mL Normal 2.50-3.90 [facility] Comment on above: Performed By: #### 3 051-0, THYR #### [facility] ([id number]) [address] [place] [address] THYROID PROFILEon 10-29-2023 Free T4 [Mass/Vol] 0.85 ng/dL Normal 0.61-1.60 [facility] Comment on above: Performed By: #### 3 051-0, THYR #### [facility] ([id number]) [address], [address] [place] [address] TSH 0.18 uIU/mL Low 0.49-4.67 [facility] Comment on above: Performed By: #### 3 051-0, THYR #### [facility] ([id number]) [address], [address] [place] [address] Thyroid stimulating immunogl obulins Qn (S)on 10-29-2023 TSI See Below Normal [facility] Comment on above: Result Comment: NOTE [...] Clinical correlation is required. Test Performed By: [facility] [employer] [address] [place] [address] Cell Stripper: Jose Enrique Samuel III, M.D. [place] #[id number] Performed By: #### 3 051-0, THYR #### [facility] ([id number]) [address], [address] [place] [address] PAP ACOG PANEL 1: 30 to 65on 01-15-2023 . . Normal [facility] Comment on above: Result Comment: Perf ormed at: WB Performed By: #### 4 [id number] #### [facility] [address] [place] [address] Dr. Ata Rao Age Gdln ACOG Testing 30-65 Normal [facility] Comment on above: Performed By: #### 4 [id number] #### [facility] [address] [place] [address] Dr. Ata Rao DIAGNOSIS: Comment Normal [facility] Comment on above: Result Comment: NEGA TIVE FOR INTRAEPITHELIAL LESION OR MALIGNANCY. CELLULAR CHANGES ASSOCIATED WITH INFLAMMATION ARE PRESENT. THIS SPECIMEN WAS RESCREENED PART OF OUR FORESTRY CONTRACTOR PROGRAM. Performed at: WB Performed By: #### 4 [id number] #### [facility] [address] [place] [address] Dr. Ata Rao HPV Aptima Negative Normal Negative [facility] Comment on above: Result Comment: This nucleic acid amplification test detects fourteen high-risk HPV types (16,18,31,33,35,39,45,51,52,56,58,59,66,68) without differentiation. Performed at: =G Performed By: #### 4 [id number] #### [facility] [address] [place] [address] Dr. Ata Rao HPV Genotype Reflex Comment Normal [facility] Comment on above: Result Comment: Crit eria not met, HPV Genotype not performed. Performed at: WB Performed By: #### 4 [id number] #### [facility] [address] [place] [address] Dr. Ata Rao Methodology: Comment Normal [facility] Comment on above: Result Comment: This liquid based ThinPrep(R) pap test was screened with the use of an image guided system. Performed at: WB Performed By: #### 4 [id number] #### [facility] [address] [place] [address] Dr. Ata Rao Note: Comment Normal [facility] Comment on above: Result Comment: The Pap smear is a screening test designed to aid in the detection of premalignant and malignant conditions of the uterine cervix. It is not a diagnostic procedure and should not be used as the sole means of detecting cervical cancer. Both false-positive and false-negative reports do occur. . Performed at: WB Performed By: #### 4 [id number] #### [facility] [address] [place] [address] Dr. Ata Rao Performed by: Comment Normal [facility] Comment on above: Result Comment: Matt Tang, Per Diem Interpreter (ASCP) Performed at: WB Performed By: #### 4 [id number] #### [facility] [address] [address] [address] Ata Rao QC reviewed by: Comment Normal [facility] Comment on above: Result Comment: Jeanette Zhang, Supervisory Per Diem Interpreter (ASCP) Performed at: WB Performed By: #### 4 [id number] #### [facility] [address] [address] [address] Ata Rao Specimen adequacy: Comment Normal [facility] Comment on above: Result Comment: Sati sfactory for evaluation. Endocervical and/or squamous metaplastic cells (endocervical component) are present. Performed at: WB Performed By: #### 4 [id number] #### [facility] [address] [address] [address] Ata Rao Vital Signs Date Time Vital Sign Value Performing Clinician Faci lity 12-29-2023 13:10-0500 Body height 163.8 cm Isaias Lujan MD Work Phone: [facility] 12-29-2023 13:10-0500 Body mass index (BMI) [Ratio] 21.26 kg/m2 Isaias Lujan MD Work Phone: [facility] 12-29-2023 13:10-0500 Body weight 57.06 kg Isaias Lujan MD Work Phone: [facility] 12-29-2023 13:10-0500 Diastolic blood pressure 54 mm[Hg] Isaias Lujan MD Work Phone: [facility] 12-29-2023 13:10-0500 Heart rate 82 /min Isaias Lujan MD Work Phone: [facility] 12-29-2023 13:10-0500 Systolic blood pressure 112 mm[Hg] Isaias Lujan MD Work Phone: [facility] 12-23-2023 11:32-0500 Body mass index (BMI) [Ratio] 21.46 kg/m2 Mamta OWENS Work Phone: [facility] 12-23-2023 11:32-0500 Body weight 56.7 kg Mamta OWENS Work Phone: [facility] 12-23-2023 11:32-0500 Diastolic blood pressure 68 mm[Hg] Mamta OWENS Work Phone: [facility] 12-23-2023 11:32-0500 Systolic blood pressure 104 mm[Hg] Mamta OWENS Work Phone: [facility] Healthcare Encounters Encounter Date Encounter Type Care Provider Facility Start: 03-08-2024 End: 03-08-2024 ambulatory LILIAN KRISTA Not Available Start: 02-23-2024 End: 02-23-2024 ambulatory MAMTA PLATA Not Available Start: 02-04-2024 End: 02-04-2024 ambulatory LILIAN KRISTA Not Available Start: 01-21-2024 End: 01-21-2024 ambulatory LILIAN KRISTA Not Available Start: 12-29-2023 End: 12-30-2023 ambulatory ISAIAS [facility] Start: 12-29-2023 End: 12-29-2023 Office outpatient visit 25 minutes Isaias Lujan MD Work Phone: [facility] Comment on above: Multigravida of adva nced maternal age in second trimester (Primary Dx); Abnormal genetic test during ; Circumvallate placenta in second trimester; Thyroid disease affecting ; 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, antepartum; 24 weeks gestation of Start: 12-23-2023 End: 12-23-2023 ambulatory MAMTA PLATA Not Available Start: 12-23-2023 End: 12-23-2023 flow sheet Mamta OWENS Work Phone: [facility] Comment on above: Third trimester preg lalit; Diabetes mellitus screening Start: 12-21-2023 Chart abstracting Mamta OWENS Work Phone: [facility] Start: 12-01-2023 End: 12-02-2023 ambulatory NIKOLINA P DOCHEVA [facility] Start: 11-26-2023 End: 11-26-2023 ambulatory NIKOLINA P DOCHEVA [facility] Start: 11-26-2023 End: 11-26-2023 Telemedicine consultation with patient Lucia Toth MD Work Phone: [facility] Comment on above: Abnormal genetic sadi t during (Primary Dx); Multigravida of advanced maternal age in second trimester; 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, antepartum Start: 11-24-2023 End: 11-24-2023 ambulatory LILIAN KING Not Available Start: 11-11-2023 Telephone encounter Ashley Higgins RN [facility] Start: 11-04-2023 Orders Only Radha Sy RN [facility]na [facility] Comment on above: Multigravida of adva nced maternal age in second trimester (Primary Dx); Abnormal genetic test during Start: 10-29-2023 End: 10-31-2023 ambulatory NOT IN SYSTEM REF PROV [facility] Start: 10-27-2023 End: 10-27-2023 ambulatory MAMTA [...] Author Start: 12-29-2024 Tobacco Screening Tobacco Screening [facility] Start: 10-30-2024 Tobacco Screening Tobacco Screening [facility] Start: 02-08-2024 End: 02-08-2024 Patient encounter procedure 02/08/2024 9:00 AM EDT Office Visit [facility] [address] [place] [id number] Lilian King, DO [address] [place] [address] [place] [address] [facility] Start: 01-21-2024 End: 01-21-2024 Patient encounter procedure 01/21/2024 9:40 AM EDT Routine [facility] [address] [facility] [facility] [place] [phone] Lilian King DO [address] [place] [address] [facility] Start: 12-23-2023 End: 12-23-2024 CBC panel - Blood by Automated count CBC Lab Routine Diabetes mellitus screening Expected: 12/23/2023 (Approximate), Expires: 12/23/2024 [facility] Healthcare Work Phone: Comment on above: Expected: 12/23/2023 (Approximate), Expires: 12/23/2024 Start: 12-23-2023 End: 12-23-2024 Measurement of glucose 1 hour after glucose challenge for glucose tolerance test Glucose tolerance, 1 hour Lab Routine Diabetes mellitus screening Expected: 12/23/2023 (Approximate), Expires: 12/23/2024 [facility] Comment on above: Expected: 12/23/2023 (Approximate), Expires: 12/23/2024 Start: 12-23-2023 End: 12-23-2023 Patient encounter procedure 12/23/2023 11:20 AM EST Routine [facility] [address] [facility] [facility] [place] [phone] Mamta Plata PA [address] [facility] [place] [address] Third trimester [facility] Comment on above: Third trimester preg lalit Start: 12-03-2023 End: 12-03-2023 Patient encounter procedure 12/03/2023 11:00 AM EST Appointment [facility] [address] [place] [address] [facility] Start: 12-01-2023 End: 12-01-2023 Patient encounter procedure 12/01/2023 1:30 PM EST Appointment [facility] - [facility]ound [address] [place] [phone] [facility] - Ultrasound Start: 11-26-2023 End: 11-26-2023 Telemedicine consultation with patient 11/26/2023 3:00 PM EST Telemedicine [facility] [address] [place] [address] Lucia Toth MD [address] [facility], [address] [place] [address] [facility] [address] [place] [address] [facility] Start: 07-10-2023 Influenza vaccination Influenza Vacc ine [facility] Start: 2008 Screening for malign ant neoplasm of cervix Pap Smear [facility] Start: 2005 Adult BMI Screening Adult BMI Screen ing [facility] Start: 1999 Depression Screening Depression Scre ening [facility] Start: 1998 DTaP,Tdap and Td Vaccines (5 - Tdap) DTaP,Tdap and Td Vaccines (5 - Tdap) [facility] Payers Date Payer Category Payer Medicaid MEDICAID [facility] M EDICAID [id number] 2023-Present [phone] [address] [place] [address] [id number] 2023 Medicaid [id number] 2019 Unknown [id number] [id number] [id number] 2019 Unknown [id number] 1987 Unknown [id number] 2.16.840.1.971622.3.579.2.593 1987 Unknown [id number] 2.16.840.1.147352.3.579.2.1286 1987 Unknown [id number] 2.16.840.1.059587.3.579.2.1286 1987 Unknown [id number] 2.16.840.1.101566.3.579.2.1285 1987 Unknown [id number] 2.16.840.1.097492.3.579.2.1286 1987 Unknown [id number] 2.16.840.1.797487.3.579.2.1285 1987 Unknown [id number] 2.16.840.1.856513.3.579.2.6 1987 Unknown [id number] 2.16.840.1.137934.3.579.2.1258 1987 Unknown [id number] 2.16.840.1.994224.3.579.2.9 1987 Unknown [id number] 2.16.840.1.764460.3.579.2.9 1987 Unknown [id number] 2.16.840.1.219667.3.579.2.9 1987 Unknown [id number] 2.16.840.1.964114.3.579.2.1258 1987 Unknown [id number] 2.16.840.1.805162.3.579.2.9 1987 Unknown [id number] 2.16.840.1.787883.3.579.2.1258 1987 Unknown [id number] 2.16.840.1.759707.3.579.2.1259 1959 Unknown [id number] Social History Date Type Detail Facility Start: 05-24-2023 End: 10-26-2023 Tobacco smoking status [facility] Ex-smoker [facility] History of tobacco use Current smoker [facility] History of tobacco use Cigarette Smoker [facility] Start: 10-30-2023 End: 11-24-2023 Alcohol intake Lifetime non-drinker (finding) [facility] Start: 10-30-2023 End: 12-29-2023 History of Social function [facility] Start: 10-30-2023 End: 12-29-2023 Tobacco use panel [facility] Housing Instability Unknown [facility] Start: 07-24-2023 [facility] Start: 1985 Sex Assigned At Not on file [facility] Start: 1985 Sex Assigned [facility] Start: 05-26-2023 Gender identity Identifies as female gender (finding) [facility] Start: 12-29-2023 Alcohol intake Ex-drinker (finding) [facility] Clinical Notes 11-11-2023 to 12-29-2023 [facility] Prabhjot Lujan MD - 12/29/2023 2:00 PM Tristan Gonzalez RN - 12/29/2023 2:00 PM ROMAN Granados - 12/23/2023 11:20 AM PATRICIA Jeffrey - 11/26/2023 3:00 PM EST Note Date & Type Note Facility 12-29-2023 History of Presen t illness Narrative [facility]aternal- Medicine Office Visit Note HPI: Lenora [...] continue with routine care in your office [facility], the CDC, and other organizations representing maternal and public health professionals recommend that , , and lactating people and those considering receive the COVID-19 vaccination. Vaccination is the best method to reduce maternal and complications of SARS-CoV-2 infection. This document was created with [employer] technology. Though I make every effort to review the dictation as it is transcribed, on occasion the spoken word can be misinterpreted by the technology leading to inappropriate words, phrases, or sentences. This note is addressed to the requesting provider as a consultation for clinical guidance. Specific medical abbreviations are occasionally used and those are generally approved by the [place]?Board of?Obstetrics and?Gynecology?as well as?Merly s abbreviations. The above plan of care was based solely on the diagnoses for which a consultation was requested. ?More frequent testing may be indicated based on her other medical/obstetrical conditions. The management of other or medical conditions is beyond the scope of requested consultation and will continue to be followed by the primary manager product or primary care provider. Thank you for [...] procedures Referring and communicating with other health child care centre manager (not separately reported) Documenting clinical information in [...] provider today? No [facility] encounter [facility] History of Presen t illness Narrative [...] of: ROMAN Valadez documented in this encounter [facility] 11-26-2023 History of Presen t illness Narrative Summary: [facility] Genetic Counseling Note Images from the original note were not included. Provider at different site/location than patient. I confirmed the patient is located in the [facility]. Lenora L Galaviz is currently at home and provider at remote site. The patient consented to be treated electronically via this form of telemedicine. This visit was not related to an office visit or procedure in the past 7 days, and in-office follow up is not recommended in the next 24 hours. Video Visit via Real-time Synchronous Audiovisual Provider Location: [facility] MATERNAL- MEDICINE AT [address] [phone] Patient Location: Patient's home Patient Location Underwear Cutter: None Video Visit Consent Statement: I discussed [...] that there are some limitations compared to xnji-yq-twaz evaluations. We elected to proceed. Name: Lenora Galaviz : 1985 Date of Visit: 11/26/2023 Email: [email or web address] Preferred contact method: email Partner's Name: Mohit Age: 45 Requesting Physician: Lucia Toth MD [address] [place] [address] Reason for Referral: Lenora Galaviz is a [...] - negative Performing lab: [facility] Test type: Contact Lens Inspector Screen without X-linked Disorders (CF and SMA) [...] history was noncontributory to the genetics evaluation. Mhoit is a 45 year old male with [...] slight increased risk of new gene mutations. ([place] [employer] Statement on Guidance [...] greater than ~5 Mb. Karyotype can also slate picker mosaicism potentially as low as ~10%. [...] (rarechromo.org) I personally spent 30 minutes in xafb-eu-etsd time with this patient. I provided genetic [...] call or email their genetic counselor at [phone] or [email or web address] if any additional questions or concerns should arise. PATRICIA Grant Licensed, Certified Genetic Counselor documented in this encounter [facility] 11-11-2023 Miscellaneous Notes Attempted to call patient regarding carrier results. No answer, left VM to call back. documented in this encounter [facility] 11-11-2023 Telephone encounter Note Attempted to call patient regarding carrier results. No answer, left VM to call back. 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, antepartum [facility]* Diagnosis Third trimester state, incidental Diabetes mellitus screening Screening for diabetes mellitus documented in this encounter [facility]* Diagnosis Multigravida of advanced maternal age in second trimester- Primary Abnormal genetic test during Circumvallate placenta in second trimester Thyroid disease affecting 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, antepartum 24 weeks gestation of documented in this encounter [facility]ructionsNot on filedocumented in this encounter [facility] filedocumented in this encounter [facility]ructionsNot on filedocumented in this encounter [facility]Not on filedocumented in this encounter [facility] (narrative)* Consultation (Routine) - Pending Review Specialty Diagnoses / Procedures Referred By Contac t Referred To Contact Maternal and Medicine Diagnoses Multigravida of advanced maternal age in second trimester Abnormal genetic test during Lucia Toth MD [address], [address] [place] [address] [address] [facility]aternal [facility] [address] [place] [address] Referral ID Status Reason Start Date Expiration Date Visits Requested Visits Authorized [id number] Pending Review Specialty Services Required 3 11/03/2024 1 1 [facility] for visit Narrative* Consultation (Routine) - Pending Review Specialty Diagnoses / Procedures Referred By Contac t Referred To Contact Maternal and Medicine Diagnoses Multigravida of advanced maternal age in second trimester Abnormal genetic test during Lucia Toth MD [address], [address] [place] [address] [address] [facility] [address] [place] [address] Referral ID Status Reason Start Date Expiration Date Visits Requested Visits Authorized [id number] Pending Review Specialty Services Required 3 11/03/2024 1 1 [facility] Summary Purpose Family History No Family History Records FoundNo Family History Records FoundNo Family History Records FoundNo Family History Records Found Advance Directives No Advanced Directives Records FoundNo Advanced Directives Records FoundNo Advanced Directives Records FoundNo Advanced Directives Records Found Additional Source Comments INFORMATION SOURCE (unrecogn ized section and content) DATE CREATED AUTHOR [facility]17/2023 [facility] DATE CREATED AUTHOR AUTHOR'S ORGANIZ ATION 12/04/2023 [facility] DATE CREATED AUTHOR AUTHOR'S ORGANIZ ATION 01/06/2024 [facility] DATE CREATED AUTHOR AUTHOR'S ORGANIZ ATION 03/09/2024 [facility] EPIC Reason for Visit (unrecogniz ed section and content) Reason Comments Routine Visit Reason Comments Marginal Insertion of Umbilical Cord Advanced Maternal Age Circumvallate Placenta Care Teams (unrecognized sec tion and content) Split And Drum Room Supervisor Relationship Specialty Start Date End Date No Pcp, [place] [address] PCP - General Family Medicine 12/01/23 FOR [...] BE BASED ON THE PRIMARY CLINICAL RECORDS. [facility]. provides no warranty or guarantee of the accuracy or completeness of information in this document.
--- NOTE | 2024-03-16 19:14 | US_ITS ---
[address] [address] Patient Name: YULIANA FLORES MRN: [facility]:[id number] date: 1985 Sex: F Assigned Patient Location: [facility] Current Patient Location: Accession/Order Number: [id number] Exam Date: 03/16/2024 20:00 Report Date: 03/17/2024 07:52 At the request of: LILIAN VELASCO Procedure: US OB BPP w non-stress EXAMINATION: US OB BPP w non-stress HISTORY: Advanced Maternal Age COMPARISON: Ultrasound OB biophysical 03/09/2024 TECHNIQUE: Ultrasound biophysical profile was performed in the radiology department. BREATHING MOVEMENTS: 2.0 GROSS BODY MOVEMENTS: 2.0 TONE: 2.0 QUALITATIVE AMNIOTIC FLUID VOLUME: 2.0 PRESENTATION: BREECH HEART RATE: 122.7 bpm bpm. AMNIOTIC FLUID VOLUME: 19.3 cm GESTATIONAL AGE: 35 weeks 5 days CONCLUSION: Total biophysical profile score 8.0 Electronically authenticated by: ALISHA PATEL Date: 03/17/2024 07:52
[2024-03-16 19:21] VITALS: BP 116/68; PULSE 84
[2024-03-16 19:23] VITALS: TEMP 36.5
== END 2024-03-16 21:08 | disposition home or self-care (01) ==
LOC: US 07:35 → FBC 18:55
PROVIDERS: Visit Provider Obstetrics & Gynecology
DX: O09.523 Supervision of elderly multigravida, third trimester (principal); Z3A.35 35 weeks gestation of pregnancy
CPT/HCPCS: 59025; 76818

== ENCOUNTER 2024-03-19 05:52 | Outpatient (OUT) | payer BC, OTHER, SELFPAY ==
--- OUTSIDE RECORDS SUMMARY | 2024-03-19 05:54 | XMS_ITS | CCD ---
Author Organization [facility] Care Team Providers Care Sports Book Writer Name Role Phone AKIKO ., DR SÁNCHEZ [...] UA Negative Negative - 4(70) +++ mg/dL [facility] Blood, UA Negative Negative - 50 Ari/mcL [facility] Clarity, UA Clear [facility] Healthca re Color, UA Yellow [facility] Healthcar e Glucose, UA Negative Negative - 1999(110) ++++ mg/dL [facility] Interpretation and review of laboratory results Normal [facility] Ketones, UA Negative Negative - 160(16) ++++ mg/dL [facility] Leukocytes, UA Negative Negative - 500+++ Panchito/mcL [facility] Nitrite, UA Negative Negative - Positive [facility] pH, UA 7.5 5 - 9 [facility] Healthcar e Protein, UA Negative Negative - 1999(20) ++++ mg/dL [facility] Spec Grav, UA 1.015 1 - 1.03 [facility] Urobilinogen, UA 0.2 0.2 - 12 mg/dL [facility] FREE T3on 10-29-2023 Free T3 [Mass/Vol] 2.72 pg/mL Normal 2.50-3.90 [facility] Comment on above: Performed By: #### 3 051-0, THYR #### [facility] ([id number]) [address], [address] [place] [address] THYROID PROFILEon 10-29-2023 Free T4 [Mass/Vol] 0.85 ng/dL Normal 0.61-1.60 [facility] Comment on above: Performed By: #### 3 051-0, THYR #### [facility] ([id number]) [address], [address] [place] [address] TSH 0.18 uIU/mL Low 0.49-4.67 [facility] Comment on above: Performed By: #### 3 051-0, THYR #### [facility] ([id number]) [address], [address] [place] [address] Thyroid stimulating immunogl obulins Qn (S)on 10-29-2023 TSI See Below Normal [facility] Comment on above: Result Comment: NOTE [...] Clinical correlation is required. Test Performed By: [facility] [employer] [address] [place] [address] Payment Specialist: Jose Enrique Samuel III, M.D. [place] #[id number] Performed By: #### 3 051-0, THYR #### [facility] ([id number]) [address], [address] [place] [id number] PAP ACOG PANEL 1: 30 to 65on 01-15-2023 . . Normal [facility] Comment on above: Result Comment: Perf ormed at: WB Performed By: #### 4 [id number] #### [facility] [address] [place] [address] Dr. Ata Rao Age Gdln ACOG Testing 30-65 Normal [facility] Comment on above: Performed By: #### 4 [id number] #### [facility] [address] [place] [address] Dr. Ata Rao DIAGNOSIS: Comment Normal [facility] Comment on above: Result Comment: NEGA TIVE FOR INTRAEPITHELIAL LESION OR MALIGNANCY. CELLULAR CHANGES ASSOCIATED WITH INFLAMMATION ARE PRESENT. THIS SPECIMEN WAS RESCREENED PART OF OUR WEB DESIGNER DEVELOPER PROGRAM. Performed at: WB Performed By: #### 4 [id number] #### [facility] [address] [place] [address] Dr. Ata Rao HPV Aptima Negative Normal Negative [facility] Comment on above: Result Comment: This nucleic acid amplification test detects fourteen high-risk HPV types (16,18,31,33,35,39,45,51,52,56,58,59,66,68) without differentiation. Performed at: =G Performed By: #### 4 [id number] #### [facility] [address] [place] [address] Dr. Ata Rao HPV Genotype Reflex Comment Normal [facility] Comment on above: Result Comment: Crit eria not met, HPV Genotype not performed. Performed at: WB Performed By: #### [id number] #### [facility] [address] [place] [address] Dr. Ata Rao Methodology: Comment Normal [facility] Comment on above: Result Comment: This liquid based ThinPrep(R) pap test was screened with the use of an image guided system. Performed at: WB Performed By: #### 4 [id number] #### [facility] [address] [place] [address] Dr. Ata Rao Note: Comment Normal [facility] Comment on above: Result Comment: The Pap smear is a screening test designed to aid in the detection of premalignant and malignant conditions of the uterine cervix. It is not a diagnostic procedure and should not be used as the sole means of detecting cervical cancer. Both false-positive and false-negative reports do occur. . Performed at: WB Performed By: #### 4 [id number] #### [facility] [address] [place] [address] Dr. Ata Rao Performed by: Comment Normal [facility] Comment on above: Result Comment: Matt Tang, Toll Repairer Central Office (ASCP) Performed at: WB Performed By: #### [id number] #### [facility] [address] [address] [address] Ata Rao QC reviewed by: Comment Normal [facility] Comment on above: Result Comment: Jeanette Zhang, Supervisory Toll Repairer Central Office (ASCP) Performed at: WB Performed By: #### 4 [id number] #### [facility] [address] [address] [address] Ata Rao Specimen adequacy: Comment Normal The [facility] Comment on above: Result Comment: Sati sfactory for evaluation. Endocervical and/or squamous metaplastic cells (endocervical component) are present. Performed at: WB Performed By: #### 4 [id number] #### [facility] [address] [address] [address] Ata Rao Vital Signs Date Time Vital Sign Value Performing Clinician Faci lity 12-29-2023 13:10-0500 Body height 163.8 cm Isaias Lujan MD Work Phone: [facility] 12-29-2023 13:10-0500 Body mass index (BMI) [Ratio] 21.26 kg/m2 Isaias Lujan MD Work Phone: [facility] 12-29-2023 13:10-0500 Body weight 57.06 kg Isaias Lujan MD Work Phone: [facility] 12-29-2023 13:10-0500 Diastolic blood pressure 54 mm[Hg] Isaias Lujan MD Work Phone: [facility] 12-29-2023 13:10-0500 Heart rate 82 /min Isaias Lujan MD Work Phone: [facility] 12-29-2023 13:10-0500 Systolic blood pressure 112 mm[Hg] Isaias Lujan MD Work Phone: [facility] 12-23-2023 11:32-0500 Body mass index (BMI) [Ratio] 21.46 kg/m2 Mamta OWENS Work Phone: [facility] 12-23-2023 11:32-0500 Body weight 56.7 kg Mamta OWENS Work Phone: [facility] 12-23-2023 11:32-0500 Diastolic blood pressure 68 mm[Hg] Mamta OWESN Work Phone: [facility] 12-23-2023 11:32-0500 Systolic blood pressure 104 mm[Hg] Mamta OWENS Work Phone: [facility] Healthcare Encounters Encounter Date Encounter Type Care Provider Facility Start: 03-08-2024 End: 03-08-2024 ambulatory LILIAN KRISTA Not Available Start: 02-23-2024 End: 02-23-2024 ambulatory MAMTA PLATA Not Available Start: 02-04-2024 End: 02-04-2024 ambulatory LILIAN KRISTA Not Available Start: 01-21-2024 End: 01-21-2024 ambulatory LILIAN KRISTA Not Available Start: 12-29-2023 End: 12-30-2023 ambulatory ISAIAS [facility] Start: 12-29-2023 End: 12-29-2023 Office outpatient visit 25 minutes Isaias Lujan MD Work Phone: [facility] Comment on above: Multigravida of adva nced maternal age in second trimester (Primary Dx); Abnormal genetic test during ; Circumvallate placenta in second trimester; Thyroid disease affecting ; 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, antepartum; 24 weeks gestation of Start: 12-23-2023 End: 12-23-2023 ambulatory MAMTA PLATA Not Available Start: 12-23-2023 End: 12-23-2023 flow sheet Mamta OWENS Work Phone: [facility] Comment on above: Third trimester preg lalit; Diabetes mellitus screening Start: 12-21-2023 Chart abstracting Mamta OWENS Work Phone: [facility] Start: 12-01-2023 End: 12-02-2023 ambulatory NIKOLINA P DOCHEVA [facility] Start: 11-26-2023 End: 11-26-2023 ambulatory NIKOLINA P DOCHEVA [facility] Start: 11-26-2023 End: 11-26-2023 Telemedicine consultation with patient Lucia Toth MD Work Phone: [facility] Comment on above: Abnormal genetic sadi t during (Primary Dx); Multigravida of advanced maternal age in second trimester; 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, antepartum Start: 11-24-2023 End: 11-24-2023 ambulatory LILIAN KING Not Available Start: 11-11-2023 Telephone encounter Ashley Higgins RN Mat [facility] Start: 11-04-2023 Orders Only Radha Sy RN [facility]aterna [facility] Comment on above: Multigravida of adva nced maternal age in second trimester (Primary Dx); Abnormal genetic test during Start: 10-29-2023 End: 10-31-2023 ambulatory NOT IN SYSTEM REF PROV [facility] Start: 10-27-2023 End: 10-27-2023 ambulatory MAMTA [...] Author Start: 12-29-2024 Tobacco Screening Tobacco Screening [facility] Start: 10-30-2024 Tobacco Screening Tobacco Screening [facility] Start: 02-08-2024 End: 02-08-2024 Patient encounter procedure 02/08/2024 9:00 AM EDT Office Visit [facility] [address] [place] [phone] Lilian King, DO [address] [place] [address] [place] [address] [facility] Start: 01-21-2024 End: 01-21-2024 Patient encounter procedure 01/21/2024 9:40 AM EDT Routine [facility] [address] [facility] [place] [id number] Lilian King DO [address] [place] [address] [facility] Start: 12-23-2023 End: 12-23-2024 CBC panel - Blood by Automated count CBC Lab Routine Diabetes mellitus screening Expected: 12/23/2023 (Approximate), Expires: 12/23/2024 [facility] Healthcare Work Phone: Comment on above: Expected: 12/23/2023 (Approximate), Expires: 12/23/2024 Start: 12-23-2023 End: 12-23-2024 Measurement of glucose 1 hour after glucose challenge for glucose tolerance test Glucose tolerance, 1 hour Lab Routine Diabetes mellitus screening Expected: 12/23/2023 (Approximate), Expires: 12/23/2024 [facility] Comment on above: Expected: 12/23/2023 (Approximate), Expires: 12/23/2024 Start: 12-23-2023 End: 12-23-2023 Patient encounter procedure 12/23/2023 11:20 AM EST Routine [facility] [address] [facility] [place] [id number] Mamta Plata PA [address] [place] [address] Third trimester [facility] Comment on above: Third trimester preg lalit Start: 12-03-2023 End: 12-03-2023 Patient encounter procedure 12/03/2023 11:00 AM EST Appointment [facility] [place] [address] [place] [address] [facility] [place] Start: 12-01-2023 End: 12-01-2023 Patient encounter procedure 12/01/2023 1:30 PM EST Appointment [facility] [address] [facility] [place] [address] [facility] Start: 11-26-2023 End: 11-26-2023 Telemedicine consultation with patient 11/26/2023 3:00 PM EST Telemedicine [facility] [address] [place] [address] Lucia Toth MD [address] [facility], [address] [place] [address] [facility] [address] [place] [address] [facility] Start: 07-10-2023 Influenza vaccination Influenza Vacc ine [facility] Start: 2008 Screening for malign ant neoplasm of cervix Pap Smear [facility] Start: 2005 Adult BMI Screening Adult BMI Screen ing [facility] Start: 1999 Depression Screening Depression Scre ening [facility] Start: 1998 DTaP,Tdap and Td Vaccines (5 - Tdap) DTaP,Tdap and Td Vaccines (5 - Tdap) [facility] Payers Date Payer Category Payer Medicaid MEDICAID [facility] M EDICAID [id number] 2023-Present [phone] [address] [place] [address] [id number] 2023 Medicaid [id number] 2019 Unknown [id number] [id number] 2019 Unknown [id number] 1987 Unknown [id number] 2.16.840.1.862236.3.579.2.593 1987 Unknown [id number] 2.16.840.1.643780.3.579.2.1286 1987 Unknown [id number] 2.16.840.1.816231.3.579.2.1286 1987 Unknown [id number] 2.16.840.1.287163.3.579.2.1285 1987 Unknown [id number] 2.16.840.1.306959.3.579.2.1286 1987 Unknown [id number] 2.16.840.1.652916.3.579.2.1285 1987 Unknown [id number] 2.16.840.1.647834.3.579.2.6 1987 Unknown [id number] 2.16.840.1.959669.3.579.2.1258 1987 Unknown [id number] 2.16.840.1.315543.3.579.2.9 1987 Unknown [id number] 2.16.840.1.895048.3.579.2.9 1987 Unknown [id number] 2.16.840.1.989327.3.579.2.9 1987 Unknown [id number] 2.16.840.1.503126.3.579.2.1258 1987 Unknown [id number] 2.16.840.1.615349.3.579.2.9 1987 Unknown [id number] 2.16.840.1.742398.3.579.2.1258 1987 Unknown [id number] 2.16.840.1.500090.3.579.2.1259 1959 Unknown [id number] Social History Date Type Detail Facility Start: 05-24-2023 End: 10-26-2023 Tobacco smoking status [facility] Ex-smoker [facility] History of tobacco use Current smoker [facility] History of tobacco use Cigarette Smoker P [facility] Start: 10-30-2023 End: 11-24-2023 Alcohol intake Lifetime non-drinker (finding) [facility] Start: 10-30-2023 End: 12-29-2023 History of Social function [facility] Start: 10-30-2023 End: 12-29-2023 Tobacco use panel [facility] Housing Instability Unknown [facility] Start: 07-24-2023 [facility] Start: 1987 Sex Assigned At Not on file P [facility] Start: 1985 Sex Assigned [facility] Start: 05-26-2023 Gender identity Identifies as female gender (finding) [facility] Start: 12-29-2023 Alcohol intake Ex-drinker (finding) [facility] Clinical Notes 11-11-2023 to 12-29-2023 [facility] Prabhjot Lujan MD - 12/29/2023 2:00 PM Tristan Gonzalez RN - 12/29/2023 2:00 PM ROMAN Granados - 12/23/2023 11:20 AM PATRICIA Jeffrey - 11/26/2023 3:00 PM EST Note Date & Type Note Facility 12-29-2023 History of Presen t illness Narrative [facility] Maternal- Medicine Office Visit Note HPI: Lenora [...] continue with routine care in your office [facility], the CDC, and other organizations representing maternal and public health professionals recommend that , , and lactating people and those considering receive the COVID-19 vaccination. Vaccination is the best method to reduce maternal and complications of SARS-CoV-2 infection. This document was created with MePlease technology. Though I make every effort to review the dictation as it is transcribed, on occasion the spoken word can be misinterpreted by the technology leading to inappropriate words, phrases, or sentences. This note is addressed to the requesting provider as a consultation for clinical guidance. Specific medical abbreviations are occasionally used and those are generally approved by the [place]?Board of?Obstetrics and?Gynecology?as well as?Merly s abbreviations. The above plan of care was based solely on the diagnoses for which a consultation was requested. ?More frequent testing may be indicated based on her other medical/obstetrical conditions. The management of other or medical conditions is beyond the scope of requested consultation and will continue to be followed by the primary security police officer or primary care provider. Thank you for [...] procedures Referring and communicating with other health md do resident urgent care (not separately reported) Documenting clinical information in [...] provider today? No [facility] History of Presen t illness Narrative [...] of: ROMAN Valadez documented in this encounter [facility] 11-26-2023 History of Presen t illness Narrative Summary: [facility] Genetic Counseling Note Images from the original note were not included. Provider at different site/location than patient. I confirmed the patient is located in the [facility]. Lenora L Galaviz is currently at home and provider at remote site. The patient consented to be treated electronically via this form of telemedicine. This visit was not related to an office visit or procedure in the past 7 days, and in-office follow up is not recommended in the next 24 hours. Video Visit via Real-time Synchronous Audiovisual Provider Location: [facility] MATERNAL- MEDICINE AT [address] [phone] Patient Location: Patient's home Patient Location Brigadier: None Video Visit Consent Statement: I discussed [...] that there are some limitations compared to [id number] evaluations. We elected to proceed. Name: Lenora Galaviz : 1985 Date of Visit: 11/26/2023 Email: [email or web address] Preferred contact method: email Partner's Name: Mohit Age: 45 Requesting Physician: Lucia Toth MD [address] [place] [address] Reason for Referral: Lenora Galaviz is a 38 y.o. female who presented to [facility] Telemedicine Clinic. Lenora is here at [...] - negative Performing lab: [facility] Test type: Director Of Vendor Management Screen without X-linked Disorders (CF and SMA) [...] slight increased risk of new gene mutations. ([place] [employer] Statement on Guidance [...] greater than ~5 Mb. Karyotype can also bean picker machine operator mosaicism potentially as low as [...] (rarechromo.org) I personally spent 30 minutes in bnje-wr-froz time with this patient. I provided genetic [...] call or email their genetic counselor at [phone] or [email or web address] if any additional questions or concerns should arise. PATRICIA Grant Licensed, Certified Genetic Counselor documented in this encounter [facility] 11-11-2023 Miscellaneous Notes Attempted to call patient regarding carrier results. No answer, left VM to call back. documented in this encounter [facility] 11-11-2023 Telephone encounter Note Attempted to call patient regarding carrier results. No answer, left VM to call back. 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, antepartum documented in this encounter [facility]* Diagnosis Third trimester state, incidental Diabetes mellitus screening Screening for diabetes mellitus documented in this encounter [facility]* Diagnosis Multigravida of advanced maternal age in second trimester- Primary Abnormal genetic test during Circumvallate placenta in second trimester Thyroid disease affecting 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, antepartum 24 weeks gestation of documented in this encounter [facility] SystemInstructionsNot on filedocumented in this encounter [facility] filedocumented in this encounter [facility] SystemInstructionsNot on filedocumented in this encounter [facility]Not on filedocumented in this encounter [facility] (narrative)* Consultation (Routine) - Pending Review Specialty Diagnoses / Procedures Referred By Contac t Referred To Contact Maternal and Medicine Diagnoses Multigravida of advanced maternal age in second trimester Abnormal genetic test during Lucia Toth MD [address], [address] [place] [address] [facility] Maternal Med [address] [place] [address] Referral ID Status Reason Start Date Expiration Date Visits Requested Visits Authorized [id number] Pending Review Specialty Services Required 3 11/03/2024 1 1 [facility] for visit Narrative* Consultation (Routine) - Pending Review Specialty Diagnoses / Procedures Referred By Contac t Referred To Contact Maternal and Medicine Diagnoses Multigravida of advanced maternal age in second trimester Abnormal genetic test during Lucia Toth MD [address], [address] [place] [address] [facility] Maternal Med [address] [place] [address] Referral ID Status Reason Start Date Expiration Date Visits Requested Visits Authorized [id number] Pending Review Specialty Services Required 3 11/03/2024 1 1 [facility] Summary Purpose Family History No Family History Records FoundNo Family History Records FoundNo Family History Records FoundNo Family History Records Found Advance Directives No Advanced Directives Records FoundNo Advanced Directives Records FoundNo Advanced Directives Records FoundNo Advanced Directives Records Found Additional Source Comments INFORMATION SOURCE (unrecogn ized section and content) DATE CREATED AUTHOR 01/17/2023 [facility] DATE CREATED AUTHOR AUTHOR'S ORGANIZ ATION 12/04/2023 [facility] DATE CREATED AUTHOR AUTHOR'S ORGANIZ ATION 01/06/2024 [facility] DATE CREATED AUTHOR AUTHOR'S ORGANIZ ATION 03/09/2024 [facility] Specialists EPIC Reason for Visit (unrecogniz ed section and content) Reason Comments Routine Visit Reason Comments Marginal Insertion of Umbilical Cord Advanced Maternal Age Circumvallate Placenta Care Teams (unrecognized sec tion and content) Sports Book Writer Relationship Specialty Start Date End Date No Pcp, [place] [address] PCP - General Family Medicine 12/01/23 FOR [...] BE BASED ON THE PRIMARY CLINICAL RECORDS. [facility] [employer] [facility]. provides no warranty or guarantee of the accuracy or completeness of information in this document.
[2024-03-19 17:35] VITALS: BP 108/59; PULSE 101
== END 2024-03-19 18:05 | disposition home or self-care (01) ==
LOC: FBCO 05:52 → FBC 17:31
PROVIDERS: Visit Provider Obstetrics & Gynecology
DX: O09.529 Supervision of elderly multigravida, unspecified trimester (principal)
CPT/HCPCS: 59025

== ENCOUNTER 2024-03-22 20:54 | Outpatient (REF) | payer BC, OTHER, SELFPAY ==
--- OUTSIDE RECORDS SUMMARY | 2024-03-22 21:02 | XMS_ITS | CCD ---
Author Organization [facility] Care Team Providers Care Mineral Surveying Technician Name Role Phone AKIKO ., DR SÁNCHEZ [...] UA Negative Negative - 4(70) +++ mg/dL [facility] Blood, UA Negative Negative - 50 Ari/mcL [facility] Clarity, UA Clear [facility] Healthca re Color, UA Yellow [facility] Healthcar e Glucose, UA Negative Negative - 1999(110) ++++ mg/dL [facility] Interpretation and review of laboratory results Normal [facility] Ketones, UA Negative Negative - 160(16) ++++ mg/dL [facility] Leukocytes, UA Negative Negative - 500+++ Panchito/mcL [facility] Nitrite, UA Negative Negative - Positive [facility] pH, UA 7.5 5 - 9 [facility] Healthcar e Protein, UA Negative Negative - 1999(20) ++++ mg/dL [facility] Spec Grav, UA 1.015 1 - 1.03 [facility] Urobilinogen, UA 0.2 0.2 - 12 mg/dL [facility] FREE T3on 10-29-2023 Free T3 [Mass/Vol] 2.72 pg/mL Normal 2.50-3.90 [facility] Comment on above: Performed By: #### 3 051-0, THYR #### [facility] ([id number]) [address], [address] [place] [address] THYROID PROFILEon 10-29-2023 Free T4 [Mass/Vol] 0.85 ng/dL Normal 0.61-1.60 [facility] Comment on above: Performed By: #### 3 051-0, THYR #### [facility] ([id number]) [address], [address] [place] [address] TSH 0.18 uIU/mL Low 0.49-4.67 [facility] Comment on above: Performed By: #### 3 051-0, THYR #### [facility] ([id number]) [address], [address] [place] [address] Thyroid stimulating immunogl obulins Qn (S)on 10-29-2023 TSI See Below Normal [facility] Comment on above: Result Comment: NOTE [...] Clinical correlation is required. Test Performed By: [facility] [employer] [address] [place] [address] Frame Table Operator Helper: Jose Enrique Samuel III, M.D. [place] #[id number] Performed By: #### 3 051-0, THYR #### [facility] ([id number]) [address], [address] [place] [address] PAP ACOG PANEL 1: 30 to 65on 01-15-2023 . . Normal [facility] Comment on above: Result Comment: Perf ormed at: WB Performed By: #### 4 [id number] #### [facility] [address] [place] [address] Dr. Ata Rao Age Gdln ACOG Testing 30-65 Normal [facility] Comment on above: Performed By: #### 4 [id number] #### [facility] [address] [place] [address] Dr. Ata Rao DIAGNOSIS: Comment Normal [facility] Comment on above: Result Comment: NEGA TIVE FOR INTRAEPITHELIAL LESION OR MALIGNANCY. CELLULAR CHANGES ASSOCIATED WITH INFLAMMATION ARE PRESENT. THIS SPECIMEN WAS RESCREENED PART OF OUR RESIDENTIAL PROPERTY TAX APPRAISER PROGRAM. Performed at: WB Performed By: #### 4 [id number] #### [facility] [address] [place] [address] Dr. Ata Rao HPV Aptima Negative Normal Negative [facility] Comment on above: Result Comment: This nucleic acid amplification test detects fourteen high-risk HPV types (16,18,31,33,35,39,45,51,52,56,58,59,66,68) without differentiation. Performed at: =G Performed By: #### 4 [id number] #### [facility] [address] [place] [address] Dr. Ata Rao HPV Genotype Reflex Comment Normal [facility] Comment on above: Result Comment: Crit eria not met, HPV Genotype not performed. Performed at: WB Performed By: #### 4 [id number] #### [facility] [address] [place] [address] Dr. Ata Rao Methodology: Comment Normal [facility] Comment on above: Result Comment: This liquid based ThinPrep(R) pap test was screened with the use of an image guided system. Performed at: WB Performed By: #### 4 [id number] #### [facility] [address] [place] [address] Dr. Ata Rao Note: Comment Normal [facility] Comment on above: Result Comment: The Pap smear is a screening test designed to aid in the detection of premalignant and malignant conditions of the uterine cervix. It is not a diagnostic procedure and should not be used as the sole means of detecting cervical cancer. Both false-positive and false-negative reports do occur. . Performed at: WB Performed By: #### 4 [id number] #### [facility] [address] [place] [address] Dr. Ata Rao Performed by: Comment Normal [facility] Comment on above: Result Comment: Matt Tang, Biblical Languages Professor (ASCP) Performed at: WB Performed By: #### 4 [id number] #### [facility] [address] [address] [address] Ata Rao QC reviewed by: Comment Normal [facility] Comment on above: Result Comment: Jeanette Zhang, Supervisory Biblical Languages Professor (ASCP) Performed at: WB Performed By: #### 4 [id number] #### [facility] [address] [address] [address] Ata Rao Specimen adequacy: Comment Normal [facility] Comment on above: Result Comment: Sati sfactory for evaluation. Endocervical and/or squamous metaplastic cells (endocervical component) are present. Performed at: WB Performed By: #### 4 [id number] #### [facility] [address] [address] [address] Ata Rao Vital Signs Date Time Vital Sign Value Performing Clinician Faci lity 12-29-2023 13:10-0500 Body height 163.8 cm Isaias Lujan MD Work Phone: [facility] 12-29-2023 13:10-0500 Body mass index (BMI) [Ratio] 21.26 kg/m2 Isaias Lujan MD Work Phone: [facility] 12-29-2023 13:10-0500 Body weight 57.06 kg Isaias Lujan MD Work Phone: [facility] 12-29-2023 13:10-0500 Diastolic blood pressure 54 mm[Hg] Isaias Lujan MD Work Phone: [facility] 12-29-2023 13:10-0500 Heart rate 82 /min Isaias Lujan MD Work Phone: [facility] 12-29-2023 13:10-0500 Systolic blood pressure 112 mm[Hg] Isaias Lujan MD Work Phone: [facility] 12-23-2023 11:32-0500 Body mass index (BMI) [Ratio] 21.46 kg/m2 Mamta OWENS Work Phone: [facility] 12-23-2023 11:32-0500 Body weight 56.7 kg Mamta OWENS Work Phone: [facility] 12-23-2023 11:32-0500 Diastolic blood pressure 68 mm[Hg] Mamta OWENS Work Phone: [facility] 12-23-2023 11:32-0500 Systolic blood pressure 104 mm[Hg] Mamta OWENS Work Phone: [facility] Healthcare Encounters Encounter Date Encounter Type Care Provider Facility Start: 03-08-2024 End: 03-08-2024 ambulatory LILIAN KRISTA Not Available Start: 02-23-2024 End: 02-23-2024 ambulatory MAMTA PLATA Not Available Start: 02-04-2024 End: 02-04-2024 ambulatory LILIAN KRISTA Not Available Start: 01-21-2024 End: 01-21-2024 ambulatory LILIAN KRISTA Not Available Start: 12-29-2023 End: 12-30-[address] [facility] Start: 12-29-2023 End: 12-29-2023 Office outpatient visit 25 minutes Isaias Lujan MD Work Phone: [facility] Comment on above: Multigravida of adva nced maternal age in second trimester (Primary Dx); Abnormal genetic test during ; Circumvallate placenta in second trimester; Thyroid disease affecting ; 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, antepartum; 24 weeks gestation of Start: 12-23-2023 End: 12-23-2023 ambulatory MAMTA PLATA Not Available Start: 12-23-2023 End: 12-23-2023 flow sheet Mamta OWENS Work Phone: [facility] Comment on above: Third trimester preg lalit; Diabetes mellitus screening Start: 12-21-2023 Chart abstracting Mamta OWENS Work Phone: [facility] Start: 12-01-2023 End: 12-02-2023 ambulatory NIKOLINA P DOCHEVA [facility] Start: 11-26-2023 End: 11-26-2023 ambulatory NIKOLINA P DOCHEVA [facility] Start: 11-26-2023 End: 11-26-2023 Telemedicine consultation with patient Lucia Toth MD Work Phone: [facility] Comment on above: Abnormal genetic sadi t during (Primary Dx); Multigravida of advanced maternal age in second trimester; 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, antepartum Start: 11-24-2023 End: 11-24-2023 ambulatory LILIAN KING Not Available Start: 11-11-2023 Telephone encounter Aslhey Higgins RN Mat [facility]- [facility] at [facility] Start: 11-04-2023 Orders Only Radha Sy RN Materna l- Medicine at [facility] Comment on above: Multigravida of adva nced maternal age in second trimester (Primary Dx); Abnormal genetic test during Start: 10-29-2023 End: 10-31-2023 ambulatory NOT IN SYSTEM REF PROV [facility] Start: 10-27-2023 End: 10-27-2023 ambulatory MAMTA [...] Author Start: 12-29-2024 Tobacco Screening Tobacco Screening [facility] Start: 10-30-2024 Tobacco Screening Tobacco Screening [facility] Start: 02-08-2024 End: 02-08-2024 Patient encounter procedure 02/08/2024 9:00 AM EDT Office Visit [facility] [address] [place] [phone] Lilian King, DO [address] [place] [address] [place] [address] [facility] Start: 01-21-2024 End: 01-21-2024 Patient encounter procedure 01/21/2024 9:40 AM EDT Routine [facility] [address] [facility] [place] [address] Lilian King DO [address] [place] [address] [facility] Start: 12-23-2023 End: 12-23-2024 CBC panel - Blood by Automated count CBC Lab Routine Diabetes mellitus screening Expected: 12/23/2023 (Approximate), Expires: 12/23/2024 [facility] Healthcare Work Phone: Comment on above: [...] AM EST Routine [facility] [address] [facility] [place] [id number] Mamta Plata PA [address] [place] [address] Third trimester [facility] Comment on above: Third trimester preg lalit Start: 12-03-2023 End: 12-03-2023 Patient encounter procedure 12/03/2023 11:00 AM EST Appointment [facility] [place] [address] [facility] [address] [place] [address] [facility] [place] Start: 12-01-2023 End: 12-01-2023 Patient encounter procedure 12/01/2023 1:30 PM EST Appointment [facility] [address] [facility] [place] [address] [facility] - [facility] Start: 11-26-2023 End: 11-26-2023 Telemedicine consultation with patient 11/26/2023 3:00 PM EST Telemedicine [facility] at [facility] [address] [place] [address] Lucia Toth MD [address] [facility], [address] [place] [address] [facility] [address] [place] [address] [facility] Start: 07-10-2023 Influenza vaccination Influenza Vacc ine [facility] Start: 2008 Screening for malign ant neoplasm of cervix Pap Smear [facility] Start: 2005 Adult BMI Screening Adult BMI Screen ing [facility] Start: 1999 Depression Screening Depression Scre ening [facility] Start: 1998 DTaP,Tdap and Td Vaccines (5 - Tdap) DTaP,Tdap and Td Vaccines (5 - Tdap) [facility] Payers Date Payer Category Payer Medicaid MEDICAID [facility] M EDICAID [id number] 2023-Present [phone] [address] [place] [address] [id number] 2023 Medicaid [id number] 2019 Unknown [id number] [id number] [id number] 2019 Unknown [id number] 1987 Unknown [id number] 2.16.840.1.265255.3.579.2.593 1987 Unknown [id number] 2.16.840.1.139520.3.579.2.1286 1987 Unknown [id number] 2.16.840.1.681091.3.579.2.1286 1987 Unknown [id number] 2.16.840.1.090348.3.579.2.1285 1987 Unknown [id number] 2.16.840.1.976135.3.579.2.1286 1987 Unknown [id number] 2.16.840.1.495656.3.579.2.1285 1987 Unknown [id number] 2.16.840.1.574898.3.579.2.6 1987 Unknown [id number] 2.16.840.1.149197.3.579.2.1258 1987 Unknown [id number] 2.16.840.1.783616.3.579.2.9 1987 Unknown [id number] 2.16.840.1.978803.3.579.2.9 1987 Unknown [id number] 2.16.840.1.735682.3.579.2.9 1987 Unknown [id number] 2.16.840.1.284126.3.579.2.1258 1987 Unknown [id number] 2.16.840.1.587488.3.579.2.9 1987 Unknown [id number] 2.16.840.1.069013.3.579.2.1258 1987 Unknown [id number] 2.16.840.1.692445.3.579.2.1259 1959 Unknown [id number] Social History Date Type Detail Facility Start: 05-24-2023 End: 10-26-2023 Tobacco smoking status [facility] Ex-smoker [facility] History of tobacco use Current smoker [facility] History of tobacco use Cigarette Smoker [facility] Start: 10-30-2023 End: 11-24-2023 Alcohol intake Lifetime non-drinker (finding) [facility] Start: 10-30-2023 End: 12-29-2023 History of Social function [facility] Start: 10-30-2023 End: 12-29-2023 Tobacco use panel [facility] Housing Instability Unknown [facility] Start: 07-24-[address] [facility] Start: 1985 Sex Assigned At Not on file [facility] Start: 1985 Sex [facility]igned [facility] Start: 05-26-2023 Gender identity Identifies as female gender (finding) [facility] Start: 12-29-2023 Alcohol intake Ex-drinker (finding) [facility] Clinical Notes 11-11-2023 to 12-29-2023 [facility] Prabhjot Lujan MD - 12/29/2023 2:00 PM Tristan Gonzalez RN - 12/29/2023 2:00 PM ROMAN Granados - 12/23/2023 11:20 AM PATRICIA Jeffrey - 11/26/2023 3:00 PM EST Note Date & Type Note Facility 12-29-2023 History of Presen t illness Narrative [facility] Maternal- Medicine Office Visit Note HPI: Lenora [...] continue with routine care in your office [facility], the CDC, and other organizations representing maternal and public health professionals recommend that , , and lactating people and those considering receive the COVID-19 vaccination. Vaccination is the best method to reduce maternal and complications of SARS-CoV-2 infection. This document was created with [employer] technology. Though I make every effort to review the dictation as it is transcribed, on occasion the spoken word can be misinterpreted by the technology leading to inappropriate words, phrases, or sentences. This note is addressed to the requesting provider as a consultation for clinical guidance. Specific medical abbreviations are occasionally used and those are generally approved by the [place]?Board of?Obstetrics and?Gynecology?as well as?Merly s abbreviations. The above plan of care was based solely on the diagnoses for which a consultation was requested. ?More frequent testing may be indicated based on her other medical/obstetrical conditions. The management of other or medical conditions is beyond the scope of requested consultation and will continue to be followed by the primary mail handler or primary care provider. Thank you for [...] provider today? No [facility] History of Presen t illness Narrative [...] of: ROMAN Valadez documented in this encounter [facility] 11-26-2023 History of Presen t illness Narrative Summary: [facility] Genetic Counseling Note Images from the original note were not included. Provider at different site/location than patient. I confirmed the patient is located in the [facility]. Lenora L Galaviz is currently at home and provider at remote site. The patient consented to be treated electronically via this form of telemedicine. This visit was not related to an office visit or procedure in the past 7 days, and in-office follow up is not recommended in the next 24 hours. Video Visit via Real-time Synchronous Audiovisual Provider Location: [facility] [address] [phone] Patient Location: Patient's home Patient Location Oil Field Technician: None Video Visit Consent Statement: I discussed [...] that there are some limitations compared to [id number] evaluations. We elected to proceed. Name: Lenora Galaivz : 1985 Date of Visit: 11/26/2023 Email: [email or web address] Preferred contact method: email Partner's Name: Mohit Age: 45 Requesting Physician: Lucia Toth MD [address] [place] [address] Reason for Referral: Lenora Galaviz is a 38 y.o. female who presented to [facility] Telemedicine Clinic. Lenora is here at [...] - negative Performing lab: [facility] Test type: Buckle Stapler Screen without X-linked Disorders (CF and SMA) [...] slight increased risk of new gene mutations. ([place] [employer] Statement on Guidance [...] greater than ~5 Mb. Karyotype can also cigar packer and picker mosaicism potentially as low as ~10%. [...] ([email or web address].org) I personally spent 30 minutes in [id number] time with this patient. I provided genetic [...] call or email their genetic counselor at [phone] or [email or web address] if any additional questions or concerns should arise. PATRICIA Grant Licensed, Certified Genetic Counselor documented in this encounter [facility] 11-11-2023 Miscellaneous Notes Attempted to call patient regarding carrier results. No answer, left VM to call back. documented in this encounter [facility] 11-11-2023 Telephone encounter Note Attempted to call patient regarding carrier results. No answer, left VM to call back. 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, antepartum [facility] Diagnosis Third trimester state, incidental Diabetes mellitus screening Screening for diabetes mellitus documented in this encounter [facility]* Diagnosis Multigravida of advanced maternal age in second trimester- Primary Abnormal genetic test during Circumvallate placenta in second trimester Thyroid disease affecting 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 (narrative)* Consultation (Routine) - Pending Review Specialty Diagnoses / Procedures Referred By Contac t Referred To Contact Maternal and Medicine Diagnoses Multigravida of advanced maternal age in second trimester Abnormal genetic test during Lucia Toth MD [address], [address] [place] [address] [facility] [address] [place] [address] Referral ID Status Reason Start Date Expiration Date Visits Requested Visits Authorized [id number] Pending Review Specialty Services Required 3 11/03/2024 1 1 [facility] for visit Narrative* Consultation (Routine) - Pending Review Specialty Diagnoses / Procedures Referred By Contac t Referred To Contact Maternal and Medicine Diagnoses Multigravida of advanced maternal age in second trimester Abnormal genetic test during Lucia Toth MD [address], [address] [place] [address] [facility] [address] [place] [address] Referral ID Status Reason Start Date Expiration Date Visits Requested Visits Authorized [id number] Pending Review Specialty Services Required 3 11/03/2024 [address] [facility] Summary Purpose Family History No Family History Records FoundNo Family History Records FoundNo Family History Records FoundNo Family History Records Found Advance Directives No Advanced Directives Records FoundNo Advanced Directives Records FoundNo Advanced Directives Records FoundNo Advanced Directives Records Found Additional Source Comments INFORMATION SOURCE (unrecogn ized section and content) DATE CREATED AUTHOR [facility]17/2023 [facility] DATE CREATED AUTHOR AUTHOR'S ORGANIZ ATION 12/04/2023 [facility] DATE CREATED AUTHOR AUTHOR'S ORGANIZ ATION 01/06/2024 [facility] DATE CREATED AUTHOR AUTHOR'S ORGANIZ ATION 03/09/2024 [facility] Specialists EPIC Reason for Visit (unrecogniz ed section and content) Reason Comments Routine Visit Reason Comments Marginal Insertion of Umbilical Cord Advanced Maternal Age Circumvallate Placenta Care Teams (unrecognized sec tion and content) Mineral Surveying Technician Relationship Specialty Start Date End Date No Pcp, [place] [address] PCP - General Family Medicine 12/01/23 FOR [...] BE BASED ON THE PRIMARY CLINICAL RECORDS. [facility] [employer] [facility]. provides no warranty or guarantee of the accuracy or completeness of information in this document.
== END 2024-03-22 20:55 | disposition home or self-care (01) ==
LOC: LAB 20:54
PROVIDERS: Visit Provider Physician Assistant
DX: Z34.93 Encounter for supervision of normal pregnancy, unspecified, third trimester (principal)
CPT/HCPCS: 87081

== ENCOUNTER 2024-03-23 07:12 | Outpatient (OUT) | payer BC, OTHER, SELFPAY ==
--- OUTSIDE RECORDS SUMMARY | 2024-03-23 07:15 | XMS_ITS | CCD ---
Author Organization [facility] Care Team Providers Care Position Classification Manager Name Role Phone AKIKO ., DR SÁNCHEZ [...] UA Negative Negative - 4(70) +++ mg/dL [facility] Blood, UA Negative Negative - 50 Ari/mcL [facility] Clarity, UA Clear [facility] Healthca re Color, UA Yellow [facility] Healthcar e Glucose, UA Negative Negative - 1999(110) ++++ mg/dL [facility] Interpretation and review of laboratory results Normal [facility] Ketones, UA Negative Negative - 160(16) ++++ mg/dL [facility] Leukocytes, UA Negative Negative - 500+++ Panchito/mcL [facility] Nitrite, UA Negative Negative - Positive [facility] pH, UA 7.5 5 - 9 [facility] Healthcar e Protein, UA Negative Negative - 1999(20) ++++ mg/dL [facility] Spec Grav, UA 1.015 1 - 1.03 [facility] Urobilinogen, UA 0.2 0.2 - 12 mg/dL [facility] FREE T3on 10-29-2023 Free T3 [Mass/Vol] 2.72 pg/mL Normal 2.50-3.90 [facility] Comment on above: Performed By: #### 3 051-0, THYR #### [facility] ([id number]) [address] [place] [address] THYROID PROFILEon 10-29-2023 Free T4 [Mass/Vol] 0.85 ng/dL Normal 0.61-1.60 [facility] Comment on above: Performed By: #### 3 051-0, THYR #### [facility] ([id number]) [address], [address] [place] [address] TSH 0.18 uIU/mL Low 0.49-4.67 [facility] Comment on above: Performed By: #### 3 051-0, THYR #### [facility] ([id number]) [address], [address] [place] [address] Thyroid stimulating immunogl obulins Qn (S)on 10-29-2023 TSI See Below Normal [facility] Comment on above: Result Comment: NOTE [...] Clinical correlation is required. Test Performed By: [facility] [employer] [address] [place] [address] Diversional Therapist'S Assistant: Jose Enrique Samuel III, M.D. [place] #[id number] Performed By: #### 3 051-0, THYR #### [facility] ([id number]) [address], [address] [place] [address] PAP ACOG PANEL 1: 30 to 65on 01-15-2023 . . Normal [facility] Comment on above: Result Comment: Perf ormed at: WB Performed By: #### 4 [id number] #### [facility] [address] [place] [address] Dr. Ata Rao Age Gdln ACOG Testing 30-65 Normal [facility] Comment on above: Performed By: #### 4 [id number] #### [facility] [address] [place] [address] Dr. Ata Rao DIAGNOSIS: Comment Normal [facility] Comment on above: Result Comment: NEGA TIVE FOR INTRAEPITHELIAL LESION OR MALIGNANCY. CELLULAR CHANGES ASSOCIATED WITH INFLAMMATION ARE PRESENT. THIS SPECIMEN WAS RESCREENED PART OF OUR SEWER SEPARATION DESIGNER PROGRAM. Performed at: WB Performed By: #### 4 [id number] #### [facility] [address] [place] [address] Dr. Ata Rao HPV Aptima Negative Normal Negative [facility] Comment on above: Result Comment: This nucleic acid amplification test detects fourteen high-risk HPV types (16,18,31,33,35,39,45,51,52,56,58,59,66,68) without differentiation. Performed at: =G Performed By: #### 4 [id number] #### [facility] [address] [place] [address] Dr. Ata Rao HPV Genotype Reflex Comment Normal [facility] Comment on above: Result Comment: Crit eria not met, HPV Genotype not performed. Performed at: WB Performed By: #### 4 [id number] #### [facility] [address] [place] [address] Dr. Ata Rao Methodology: Comment Normal [facility] Comment on above: Result Comment: This liquid based ThinPrep(R) pap test was screened with the use of an image guided system. Performed at: WB Performed By: #### 4 [id number] #### [facility] [address] [place] [address] Dr. Ata Rao Note: Comment Normal [facility] Comment on above: Result Comment: The Pap smear is a screening test designed to aid in the detection of premalignant and malignant conditions of the uterine cervix. It is not a diagnostic procedure and should not be used as the sole means of detecting cervical cancer. Both false-positive and false-negative reports do occur. . Performed at: WB Performed By: #### 4 [id number] #### [facility] [address] [place] [address] Dr. Ata Rao Performed by: Comment Normal [facility] Comment on above: Result Comment: Matt Tang, Livestock Farmworker (ASCP) Performed at: WB Performed By: #### 4 [id number] #### [facility] [address] [address] [address] Ata Rao QC reviewed by: Comment Normal [facility] Comment on above: Result Comment: Jeanette Zhang, Supervisory Livestock Farmworker (ASCP) Performed at: WB Performed By: #### 4 [id number] #### [facility] [address] [address] [address] Ata Rao Specimen adequacy: Comment Normal [facility] Comment on above: Result Comment: Sati sfactory for evaluation. Endocervical and/or squamous metaplastic cells (endocervical component) are present. Performed at: WB Performed By: #### 4 [id number] #### [facility] [address] [address] [address] Ata Rao Vital Signs Date Time Vital Sign Value Performing Clinician Faci lity 12-29-2023 13:10-0500 Body height 163.8 cm Isaias Lujan MD Work Phone: [facility] 12-29-2023 13:10-0500 Body mass index (BMI) [Ratio] 21.26 kg/m2 Isaias Lujan MD Work Phone: [facility] 12-29-2023 13:10-0500 Body weight 57.06 kg Isaias Lujan MD Work Phone: [facility] 12-29-2023 13:10-0500 Diastolic blood pressure 54 mm[Hg] Isaias Lujan MD Work Phone: [facility] 12-29-2023 13:10-0500 Heart rate 82 /min Isaias Lujan MD Work Phone: [facility] 12-29-2023 13:10-0500 Systolic blood pressure 112 mm[Hg] Isaias Lujan MD Work Phone: [facility] 12-23-2023 11:32-0500 Body mass index (BMI) [Ratio] 21.46 kg/m2 Mamta OWENS Work Phone: [facility] 12-23-2023 11:32-0500 Body weight 56.7 kg Mamta OWENS Work Phone: [facility] 12-23-2023 11:32-0500 Diastolic blood pressure 68 mm[Hg] Mamta OWENS Work Phone: [facility] 12-23-2023 11:32-0500 Systolic blood pressure 104 mm[Hg] Mamta OWENS Work Phone: [facility] Healthcare Encounters Encounter Date Encounter Type Care Provider Facility Start: 03-08-2024 End: 03-08-2024 ambulatory LILIAN KRISTA Not Available Start: 02-23-2024 End: 02-23-2024 ambulatory MAMTA PLATA Not Available Start: 02-04-2024 End: 02-04-2024 ambulatory LILIAN KRISTA Not Available Start: 01-21-2024 End: 01-21-2024 ambulatory LILIAN KRISTA Not Available Start: 12-29-2023 End: 12-30-[address] 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, antepartum; 24 weeks gestation of Start: 12-23-2023 End: 12-23-2023 ambulatory MAMTA PLATA Not Available Start: 12-23-2023 End: 12-23-2023 flow sheet Mamta OWENS Work Phone: [facility] Comment on above: Third trimester preg lalit; Diabetes mellitus screening Start: 12-21-2023 Chart abstracting Mamta OWENS Work Phone: [facility] Start: 12-01-2023 End: 12-02-2023 ambulatory NIKOLINA P DOCHEVA [facility] Start: 11-26-2023 End: 11-26-2023 ambulatory NIKOLINA P DOCHEVA [facility] Start: 11-26-2023 End: 11-26-2023 Telemedicine consultation with patient Lucia Toth MD Work Phone: [facility] Comment on above: Abnormal genetic sadi t during (Primary Dx); Multigravida of advanced maternal age in second trimester; 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, antepartum Start: 11-24-2023 End: 11-24-2023 ambulatory LILIAN KING Not Available Start: 11-11-2023 Telephone encounter Ashley Higgins RN Mat ern[facility] Start: 11-04-2023 Orders Only Radha Sy RN Materna [facility] Comment on above: Multigravida of adva nced maternal age in second trimester (Primary Dx); Abnormal genetic test during Start: 10-29-2023 End: 10-31-2023 ambulatory NOT IN SYSTEM REF PROV [facility] Start: 10-27-2023 End: 10-27-2023 ambulatory MAMTA PLATA Not Available Start: 09-24-2023 End: 09-24-2023 ambulatory LILIAN KING Not Available Start: 01-06-2023 End: 01-06-[address] PRINCESS WHARTNO . Facility: Procedures Date Procedure Procedure Detail Performing Clinician Start: 12-23-2023 Urnls dip stick/tabl et rgnt non-auto w/o micrscp Mamta OWENS Work Phone: Plan of Treatment Date Care Activity Detail Author Start: 12-29-2024 Tobacco Screening Tobacco Screening [facility] Start: 10-30-2024 Tobacco Screening Tobacco Screening [facility] Start: 02-08-2024 End: 02-08-2024 Patient encounter procedure 02/08/2024 9:00 AM EDT Office Visit [facility] [address] [place] [phone] Lilian King, DO [address] [place] [address] [place] [address] [facility] Start: 01-21-2024 End: 01-21-2024 Patient encounter procedure 01/21/2024 9:40 AM EDT Routine [facility] [address] [place] [address] Lilian King DO [address] [place] [address] [facility] Start: 12-23-2023 End: 12-23-2024 CBC panel - Blood by Automated count CBC Lab Routine Diabetes mellitus screening Expected: 12/23/2023 (Approximate), Expires: 12/23/2024 [facility] Healthcare Work Phone: Comment on above: Expected: 12/23/2023 (Approximate), Expires: 12/23/2024 Start: 12-23-2023 End: 12-23-2024 Measurement of glucose 1 hour after glucose challenge for glucose tolerance test Glucose tolerance, 1 hour Lab Routine Diabetes mellitus screening Expected: 12/23/2023 (Approximate), Expires: 12/23/2024 [facility] Healthcare Comment on above: Expected: 12/23/2023 (Approximate), Expires: 12/23/2024 Start: 12-23-2023 End: 12-23-2023 Patient encounter procedure 12/23/2023 11:20 AM EST Routine [facility] [address] [place] [id number] Mamta Plata PA [address] [place] [address] Third trimester [facility] Comment on above: Third trimester preg lalit Start: 12-03-2023 End: 12-03-2023 Patient encounter procedure 12/03/2023 11:00 AM EST Appointment [facility] [place] [address] [place] [address] [facility] [place] Start: 12-01-2023 End: 12-01-2023 Patient encounter procedure 12/01/2023 1:30 PM EST Appointment [facility] [address] [place] [address] [facility] Start: 11-26-2023 End: 11-26-2023 Telemedicine consultation with patient 11/26/2023 3:00 PM EST Telemedicine [facility] [address] [place] [address] Lucia Toth MD [address] [facility], [address] [place] [address] [facility] [address] [place] [address] [facility] Start: 07-10-2023 Influenza vaccination Influenza Vacc ine [facility] Start: 2008 Screening for malign ant neoplasm of cervix Pap Smear [facility] Start: 2005 Adult BMI Screening Adult BMI Screen ing [facility] Start: 1999 Depression Screening Depression Scre ening [facility] Start: 1998 DTaP,Tdap and Td Vaccines (5 - Tdap) DTaP,Tdap and Td Vaccines (5 - Tdap) [facility] Payers Date Payer Category Payer Medicaid MEDICAID [facility] M EDICAID [id number] 2023-Present [phone] [address] [place] [address] [id number] 2023 Medicaid [id number] 2019 Unknown [id number] [id number] 2019 Unknown [id number] 1987 Unknown [id number] 2.16.840.1.949447.3.579.2.593 1987 Unknown [id number] 2.16.840.1.623848.3.579.2.1286 1987 Unknown [id number] 2.16.840.1.097005.3.579.2.1286 1987 Unknown [id number] 2.16.840.1.331003.3.579.2.1285 1987 Unknown [id number] 2.16.840.1.041885.3.579.2.1286 1987 Unknown [id number] 2.16.840.1.999567.3.579.2.1285 1987 Unknown [id number] 2.16.840.1.774980.3.579.2.6 1987 Unknown [id number] 2.16.840.1.132257.3.579.2.1258 1987 Unknown [id number] 2.16.840.1.223492.3.579.2.9 1987 Unknown [id number] 2.16.840.1.199133.3.579.2.9 1987 Unknown [id number] 2.16.840.1.376643.3.579.2.9 1987 Unknown [id number] 2.16.840.1.092569.3.579.2.1258 1987 Unknown [id number] 2.16.840.1.208482.3.579.2.9 1987 Unknown [id number] 2.16.840.1.518234.3.579.2.1258 1987 Unknown [id number] 2.16.840.1.053965.3.579.2.1259 1959 Unknown [id number] Social History Date Type Detail Facility Start: 05-24-2023 End: 10-26-2023 Tobacco smoking status [facility] Ex-smoker [facility] History of tobacco use Current smoker [facility] History of tobacco use Cigarette Smoker [facility] Start: 10-30-2023 End: 11-24-2023 Alcohol intake Lifetime non-drinker (finding) [facility] Start: 10-30-2023 End: 12-29-2023 History of Social function [facility] Start: 10-30-2023 End: 12-29-2023 Tobacco use panel [facility] Housing Instability Unknown [facility] Start: 07-24-2023 [facility] Start: 1985 Sex Assigned At Not on file [facility] Start: 1985 Sex Assigned At [facility] Start: 05-26-2023 Gender identity Identifies as female gender (finding) [facility] Start: 12-29-2023 Alcohol intake Ex-drinker (finding) [facility] Clinical Notes 11-11-2023 to 12-29-2023 [facility] Prabhjot Lujan MD - 12/29/2023 2:00 PM Tristan Gonzalez RN - 12/29/2023 2:00 PM ROMAN Granados - 12/23/2023 11:20 AM PATRICIA Jeffrey - 11/26/2023 3:00 PM EST Note Date & Type Note Facility 12-29-2023 History of Presen t illness Narrative [facility] Maternal- Medicine Office Visit Note HPI: [...] continue with routine care in your office [facility], the CDC, and other organizations representing maternal and public health professionals recommend that , , and lactating people and those considering receive the COVID-19 vaccination. Vaccination is the best method to reduce maternal and complications of SARS-CoV-2 infection. This document was created with [employer] technology. Though I make every effort to review the dictation as it is transcribed, on occasion the spoken word can be misinterpreted by the technology leading to inappropriate words, phrases, or sentences. This note is addressed to the requesting provider as a consultation for clinical guidance. Specific medical abbreviations are occasionally used and those are generally approved by the [place]?Board of?Obstetrics and?Gynecology?as well as?Merly s abbreviations. The above plan of care was based solely on the diagnoses for which a consultation was requested. ?More frequent testing may be indicated based on her other medical/obstetrical conditions. The management of other or medical conditions is beyond the scope of requested consultation and will continue to be followed by the primary taker off or primary care provider. Thank you for [...] procedures Referring and communicating with other health day care provider (not separately reported) Documenting clinical information in [...] provider today? No [facility] encounter [facility] History of Presen t illness Narrative [...] of: ROMAN Valadez documented in this encounter [facility] 11-26-2023 History of Presen t illness Narrative Summary: [facility] Genetic Counseling Note Images from the original note were not included. Provider at different site/location than patient. I confirmed the patient is located in the [facility]. Lenora L Galaviz is currently at home and provider at remote site. The patient consented to be treated electronically via this form of telemedicine. This visit was not related to an office visit or procedure in the past 7 days, and in-office follow up is not recommended in the next 24 hours. Video Visit via Real-time Synchronous Audiovisual Provider Location: [facility] MATERNAL- MEDICINE AT [address] [id number] Patient Location: Patient's home Patient Location Security Director: None Video Visit Consent Statement: I discussed [...] that there are some limitations compared to [id number]-eu-qdbn evaluations. We elected to proceed. Name: Lenora Galaviz : 1985 Date of Visit: 11/26/2023 Email: [email or web address] Preferred contact method: email Partner's Name: Mohit Age: 45 Requesting Physician: Lucia Toth MD [address] [place] [address] Reason for Referral: Lenora Galaviz is a 38 y.o. female who presented to [facility] Telemedicine Clinic. Lenora is here at [...] - negative Performing lab: [facility] Test type: Steeple Jack Screen without X-linked Disorders (CF and SMA) [...] slight increased risk of new gene mutations. ([place] [employer] Statement on Guidance [...] greater than ~5 Mb. Karyotype can also pickling drum operator mosaicism potentially as low as ~10%. [...] (rarechromo.org) I personally spent 30 minutes in pzyv-it-ghfp time with this patient. I provided genetic [...] call or email their genetic counselor at [phone] or [email or web address] if any additional questions or concerns should arise. PATRICIA Grant Licensed, Certified Genetic Counselor documented in this encounter [facility] 11-11-2023 Miscellaneous Notes Attempted to call patient regarding carrier results. No answer, left VM to call back. documented in this encounter [facility] 11-11-2023 Telephone encounter Note Attempted to call patient regarding carrier results. No answer, left VM to call back. 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, antepartum documented in this encounter [facility] SystemEvaluation note* Diagnosis Third trimester state, incidental Diabetes mellitus screening Screening for diabetes mellitus documented in this encounter [facility] HealthcareEvaluation note* Diagnosis Multigravida of advanced maternal age in second trimester- Primary Abnormal genetic test during Circumvallate placenta in second trimester Thyroid disease affecting 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, antepartum 24 weeks gestation of documented in this encounter [facility] SystemInstructionsNot on filedocumented in this encounter [facility] on filedocumented in this encounter [facility] SystemInstructionsNot on filedocumented in this encounter [facility] System[facility]ructionsNot on filedocumented in this encounter [facility])* Consultation (Routine) - Pending Review Specialty Diagnoses / Procedures Referred By Contac t Referred To Contact Maternal and Medicine Diagnoses Multigravida of advanced maternal age in second trimester Abnormal genetic test during Lucia Toth MD [address], [address] [place] [address] [facility] Maternal Med [address] [place] [address] Referral ID Status Reason Start Date Expiration Date Visits Requested Visits Authorized [id number] Pending Review Specialty Services Required 3 11/03/2024 1 1 [facility] for visit Narrative* Consultation (Routine) - Pending Review Specialty Diagnoses / Procedures Referred By Contac t Referred To Contact Maternal and Medicine Diagnoses Multigravida of advanced maternal age in second trimester Abnormal genetic test during Lucia Toth MD [address], [address] [place] [address] [facility] Maternal Med [address] [place] [address] Referral ID Status Reason Start Date Expiration Date Visits Requested Visits Authorized [id number] Pending Review Specialty Services Required 3 11/03/2024 1 1 [facility] Summary Purpose Family History No Family History Records FoundNo Family History Records FoundNo Family History Records FoundNo Family History Records Found Advance Directives No Advanced Directives Records FoundNo Advanced Directives Records FoundNo Advanced Directives Records FoundNo Advanced Directives Records Found Additional Source Comments INFORMATION SOURCE (unrecogn ized section and content) DATE CREATED AUTHOR [facility]/17/2023 [facility] DATE CREATED AUTHOR AUTHOR'S ORGANIZ ATION 12/04/2023 [facility] DATE CREATED AUTHOR AUTHOR'S ORGANIZ ATION 01/06/2024 [facility] DATE CREATED AUTHOR AUTHOR'S ORGANIZ ATION 03/09/2024 [facility] EPIC Reason for Visit (unrecogniz ed section and content) Reason Comments Routine Visit Reason Comments Marginal Insertion of Umbilical Cord Advanced Maternal Age Circumvallate Placenta Care Teams (unrecognized sec tion and content) Position Classification Manager Relationship Specialty Start Date End Date No Pcp, [place] [address] PCP - General Family Medicine 12/01/23 FOR [...] BE BASED ON THE PRIMARY CLINICAL RECORDS. [facility] [employer] [facility]. provides no warranty or guarantee of the accuracy or completeness of information in this document.
--- NOTE | 2024-03-23 18:59 | US_ITS ---
[address] [address] Patient Name: YULIANA FLORES MRN: [employer]:[id number] date: 1985 Sex: F Assigned Patient [facility]: [facility] Current Patient Location: [facility] Accession/Order Number: [id number] Exam Date: 03/23/2024 19:03 Report Date: 03/24/2024 07:55 At the request of: LILIAN VELASCO Procedure: US OB BPP w non-stress EXAMINATION: US OB BPP w non-stress HISTORY: MULTIGRAVIDA OF ADVANCED MATERNAL AGE O09.523 COMPARISON: Ultrasound OB biophysical 03/16/2024 TECHNIQUE: Ultrasound biophysical profile was performed in the radiology department. BREATHING MOVEMENTS: 2.0 GROSS BODY MOVEMENTS: 2.0 TONE: 2.0 QUALITATIVE AMNIOTIC FLUID VOLUME: 2.0 PRESENTATION: BREECH HEART RATE: 131.7 bpm bpm. AMNIOTIC FLUID VOLUME: 12.1 cm GESTATIONAL AGE: 36 weeks 5 days CONCLUSION: Total biophysical profile score 8.0. Electronically authenticated by: ALISHA PATEL Date: 03/24/2024 07:55
[2024-03-23 19:23] VITALS: BP 115/66; PULSE 82; TEMP 36.6
== END 2024-03-23 20:02 | disposition home or self-care (01) ==
LOC: US 07:12 → FBC 18:57
PROVIDERS: Visit Provider Obstetrics & Gynecology
DX: O09.523 Supervision of elderly multigravida, third trimester (principal); Z3A.36 36 weeks gestation of pregnancy
CPT/HCPCS: 76818

== ENCOUNTER 2024-03-26 02:53 | Outpatient (OUT) | payer BC, OTHER, SELFPAY ==
--- OUTSIDE RECORDS SUMMARY | 2024-03-26 02:56 | XMS_ITS | CCD ---
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 Name Role Phone AKIKO ., DR SÁNCHEZ [...] MAMTA Attending Unavailable KRISTA, LILIAN Attending Unavailable BONI, MAMTA Attending Unavailable Medications [...] UA Negative Negative - 4(70) +++ mg/dL [facility] Blood, UA Negative Negative - 50 Ari/mcL [facility] Clarity, UA Clear [facility] re Color, UA Yellow [facility] Healthcar e Glucose, UA Negative Negative - 1999(110) ++++ mg/dL [facility] Interpretation and review of laboratory results Normal [facility] Ketones, UA Negative Negative - 160(16) ++++ mg/dL [facility] Leukocytes, UA Negative Negative - 500+++ Panchito/mcL [facility] Nitrite, UA Negative Negative - Positive [facility] pH, UA 7.5 5 - 9 [facility] Healthcar e Protein, UA Negative Negative - 1999(20) ++++ mg/dL [facility] Spec Grav, UA 1.015 1 - 1.03 [facility] Urobilinogen, UA 0.2 0.2 - 12 mg/dL [facility] Healthcar e FREE T3on 10-29-2023 Free T3 [Mass/Vol] 2.72 pg/mL Normal 2.50-3.90 [facility] Comment on above: Performed By: #### 3 051-0, THYR #### [facility] ([id number]) [address], [address] [place] [address] THYROID PROFILEon 10-29-2023 Free T4 [Mass/Vol] 0.85 ng/dL Normal 0.61-1.60 [facility] Comment on above: Performed By: #### 3 051-0, THYR #### [facility] ([id number]) [address], [address] [place] [address] TSH 0.18 uIU/mL Low 0.49-4.67 [facility] Comment on above: Performed By: #### 3 051-0, THYR #### [facility] ([id number]) [address], [address] [place] [address] Thyroid stimulating immunogl obulins Qn (S)on 10-29-2023 TSI See Below Normal [facility] Comment on above: Result Comment: NOTE [...] Clinical correlation is required. Test Performed By: [facility] [address] [place] [address] Hand Hide Stretcher: Jose Enrique Samuel III, M.D. CLIA #[id number] Performed By: #### 3 051-0, THYR #### [facility] ([id number]) [address], [address] [place] [address] PAP ACOG PANEL 1: 30 to 65on 01-15-2023 . . Normal [facility] Comment on above: Result Comment: Perf ormed at: WB Performed By: #### 4 [id number] #### [facility] [address] [place] [address] Dr. Ata Rao Age Gdln ACOG Testing 30-65 Normal [facility] Comment on above: Performed By: #### 4 [id number] #### [facility] [address] [place] [address] Dr. Ata Rao DIAGNOSIS: Comment Normal [facility] Comment on above: Result Comment: NEGA TIVE FOR INTRAEPITHELIAL LESION OR MALIGNANCY. CELLULAR CHANGES ASSOCIATED WITH INFLAMMATION ARE PRESENT. THIS SPECIMEN WAS RESCREENED PART OF OUR INSTRUMENT REPAIR SUPERVISOR PROGRAM. Performed at: WB Performed By: #### 4 [id number] #### [facility] [address] [place] [address] Dr. Ata Rao HPV Aptima Negative Normal Negative [facility] Comment on above: Result Comment: This nucleic acid amplification test detects fourteen high-risk HPV types (16,18,31,33,35,39,45,51,52,56,58,59,66,68) without differentiation. Performed at: =G Performed By: #### 4 [id number] #### [facility] [address] [place] [address] Dr. Ata Rao HPV Genotype Reflex Comment Normal [facility] Comment on above: Result Comment: Crit eria not met, HPV Genotype not performed. Performed at: WB Performed By: #### 4 [id number] #### [facility] [address] [place] [address] Dr. Ata Rao Methodology: Comment Normal [facility] Comment on above: Result Comment: This liquid based ThinPrep(R) pap test was screened with the use of an image guided system. Performed at: WB Performed By: #### 4 [id number] #### [facility] [address] [place] [address] Dr. Ata Rao Note: Comment Normal [facility] Comment on above: Result Comment: The Pap smear is a screening test designed to aid in the detection of premalignant and malignant conditions of the uterine cervix. It is not a diagnostic procedure and should not be used as the sole means of detecting cervical cancer. Both false-positive and false-negative reports do occur. . Performed at: WB Performed By: #### 4 [id number] #### [facility] [address] [place] [address] Dr. Ata Rao Performed by: Comment Normal [facility] Comment on above: Result Comment: Matt Tang, Assistant Guest Services Manager (ASCP) Performed at: WB Performed By: #### 4 [id number] #### [facility] [address] [address] [address] Ata Rao QC reviewed by: Comment Normal [facility] Comment on above: Result Comment: Jeanette Zhang, Supervisory Assistant Guest Services Manager (ASCP) Performed at: WB Performed By: #### 4 [id number] #### [facility] [address] [id number] Ata Rao Specimen adequacy: Comment Normal [facility] Comment on above: Result Comment: Sati sfactory for evaluation. Endocervical and/or squamous metaplastic cells (endocervical component) are present. Performed at: WB Performed By: #### 4 [id number] #### [facility] [address] [address] [address] Ata Rao Vital Signs Date Time Vital Sign Value Performing Clinician Faci lity 12-29-2023 13:10-0500 Body height 163.8 cm Isaias Lujan MD Work Phone: [facility] 12-29-2023 13:10-0500 Body mass index (BMI) [Ratio] 21.26 kg/m2 Isaias Lujan MD Work Phone: [facility] 12-29-2023 13:10-0500 Body weight 57.06 kg Isaias Lujan MD Work Phone: [facility] 12-29-2023 13:10-0500 Diastolic blood pressure 54 mm[Hg] Isaias Lujan MD Work Phone: [facility] 12-29-2023 13:10-0500 Heart rate 82 /min Isaias Lujan MD Work Phone: [facility] 12-29-2023 13:10-0500 Systolic blood pressure 112 mm[Hg] Isaias Lujan MD Work Phone: [facility] 12-23-2023 11:32-0500 Body mass index (BMI) [Ratio] 21.46 kg/m2 Mamta OWENS Work Phone: [facility] 12-23-2023 11:32-0500 Body weight 56.7 kg Mamta OWENS Work Phone: [facility] 12-23-2023 11:32-0500 Diastolic blood pressure 68 mm[Hg] Mamta OWENS Work Phone: [facility] 12-23-2023 11:32-0500 Systolic blood pressure 104 mm[Hg] Mamta OWENS Work Phone: [facility] Healthcare Encounters Encounter Date Encounter Type Care Provider Facility Start: 03-22-2024 End: 03-22-2024 ambulatory MAMTA PLATA Not Available Start: 03-08-2024 End: 03-08-2024 ambulatory LILIAN KRISTA Not Available Start: 02-23-2024 End: 02-23-2024 ambulatory MAMTA PLATA Not Available Start: 02-04-2024 End: 02-04-2024 ambulatory LILIAN KRISTA Not Available Start: 01-21-2024 End: 01-21-2024 ambulatory LILIAN KRISTA Not Available Start: 12-29-2023 End: 12-30-2023 ambulatory [facility] Start: 12-29-2023 End: 12-29-2023 Office outpatient visit 25 minutes Isaias Lujan MD Work Phone: [facility] Comment on above: Multigravida of adva nced maternal age in second trimester (Primary Dx); Abnormal genetic test during ; Circumvallate placenta in second trimester; Thyroid disease affecting ; 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, antepartum; 24 weeks gestation of Start: 12-23-2023 End: 12-23-2023 ambulatory MAMTA PLATA Not Available Start: 12-23-2023 End: 12-23-2023 flow sheet Mamta OWENS Work Phone: [facility] Comment on above: Third trimester preg lalit; Diabetes mellitus screening Start: 12-21-2023 Chart abstracting Mamta OWENS Work Phone: [facility] Start: 12-01-2023 End: 12-02-2023 ambulatory [facility]LE[facility]Shin Mati [facility] Start: 11-26-2023 End: 11-26-2023 [facility] Start: 11-26-2023 End: 11-26-2023 Telemedicine consultation with patient Lucia Kim MD Work Phone: [facility] Comment on above: Abnormal genetic sadi t during (Primary Dx); Multigravida of advanced maternal age in second trimester; 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, antepartum Start: 11-24-2023 End: 11-24-2023 ambulatory LILIAN KING Not Available Start: 11-11-2023 Telephone encounter Ashley Higgins RN Mat [facility] Start: 11-04-2023 Orders Only Radha Sy RN [facility] Comment on above: Multigravida of adva nced maternal age in second trimester (Primary Dx); Abnormal genetic test during Start: 10-29-2023 End: 10-31-2023 ambulatory NOT IN SYSTEM REF PROV [facility] Start: 10-27-2023 End: 10-27-2023 ambulatory MAMTA [...] Author Start: 12-29-2024 Tobacco Screening Tobacco Screening [facility] Start: 10-30-2024 Tobacco Screening Tobacco Screening [facility] Start: 02-08-2024 End: 02-08-2024 Patient encounter procedure 02/08/2024 9:00 AM EDT Office Visit [facility] [address] [place] [address] Lilian King, DO [address] [place] [address] [facility] Start: 01-21-2024 End: 01-21-2024 Patient encounter procedure 01/21/2024 9:40 AM EDT Routine [facility] [address] [place] [address] Lilian King, DO [address] [place] [address] [facility] Start: 12-23-2023 End: 12-23-2024 CBC panel - Blood by Automated count CBC Lab Routine Diabetes mellitus screening Expected: 12/23/2023 (Approximate), Expires: 12/23/2024 [facility] Healthcare Work Phone: Comment on above: Expected: 12/23/2023 (Approximate), Expires: 12/23/2024 Start: 12-23-2023 End: 12-23-2024 Measurement of glucose 1 hour after glucose challenge for glucose tolerance test Glucose tolerance, 1 hour Lab Routine Diabetes mellitus screening Expected: 12/23/2023 (Approximate), Expires: 12/23/2024 [facility] Healthcare Comment on above: Expected: 12/23/2023 (Approximate), Expires: 12/23/2024 Start: 12-23-2023 End: 12-23-2023 Patient encounter procedure 12/23/2023 11:20 AM EST Routine [facility] [address] [place] [id number] Mamta Plata PA [address] [place], [place] [id number] Third trimester [facility] Comment on above: Third trimester preg lalit Start: 12-03-2023 End: 12-03-2023 Patient encounter procedure 12/03/2023 11:00 AM EST Appointment [facility] [address] [place] [address] [place] [address] [facility] Start: 12-01-2023 End: 12-01-2023 Patient encounter procedure 12/01/2023 1:30 PM EST Appointment [facility] [address] [place] [address] [facility] Start: 11-26-2023 End: 11-26-2023 Telemedicine consultation with patient 11/26/2023 3:00 PM EST Telemedicine [facility] [address] [place] [id number] Lucia Kim MD [address] [address] Nataly Koo, MER[facility]ED WITH [facility] [address] [place] [address] [facility] Start: 07-10-2023 Influenza vaccination Influenza Vacc ine [facility] Start: 2008 Screening for malign ant neoplasm of cervix Pap Smear [facility] Start: 2005 Adult BMI Screening Adult BMI Screen ing [facility] Start: 1999 [facility] Start: 1998 DTaP,Tdap and Td Vaccines (5 - Tdap) DTaP,Tdap and Td Vaccines (5 - Tdap) [facility] Payers Date Payer Category [place] [id number] 2023-Present [phone] [address] [place] [address] [id number] 2023 Medicaid [id number] 2019 Unknown [id number] [id number] [id number] 2019 Unknown [id number] 1987 Unknown [id number] 2.16.840.1.415447.3.579.2.593 1987 Unknown [id number] 2.16.840.1.177828.3.579.2.1286 1987 Unknown [id number] 2.16.840.1.362844.3.579.2.1285 1987 Unknown [id number] 2.16.840.1.634312.3.579.2.1286 1987 Unknown [id number] 2.16.840.1.484388.3.579.2.128 1987 Unknown [id number] 2.16.840.1.922915.3.579.2.6 1987 Unknown [id number] 2.16.840.1.897264.3.579.2.1285 1987 Unknown [id number] 2.16.840.1.355944.3.579.2.9 1987 Unknown [id number] 2.16.840.1.953407.3.579.2.1258 1987 Unknown [id number] 2.16.840.1.688591.3.579.2.9 1987 Unknown [id number] 2.16.840.1.816255.3.579.2.9 1987 Unknown [id number] 2.16.840.1.516571.3.579.2.1259 1987 Unknown [id number] 2.16.840.1.221598.3.579.2.1258 1987 Unknown [id number] 2.16.840.1.701543.3.579.2.9 1987 Unknown [id number] 2.16.840.1.315030.3.579.2.9 1987 Unknown [id number] 2.16.840.1.808903.3.579.2.1259 1959 Unknown [id number] Social History Date Type Detail Facility Start: 05-24-2023 End: 10-26-2023 Tobacco smoking status NHIS Ex-smoker [facility] History of tobacco use Current smoker [facility] History of tobacco use Cigarette Smoker [facility] Start: 10-30-2023 End: 11-24-2023 Alcohol intake Lifetime non-drinker (finding) [facility] Start: 10-30-2023 End: 12-29-2023 History of Social function [facility] Start: 10-30-2023 End: 12-29-2023 Tobacco use panel [facility] Housing Instability Unknown [facility] Start: 07-24-2023 [facility] Start: 1985 Sex Assigned At Not on file [facility] Start: 1985 Sex Assigned At [facility] Start: 05-26-2023 Gender identity Identifies as female gender (finding) [facility] Start: 12-29-2023 Alcohol intake Ex-drinker (finding) [facility] Clinical Notes 11-11-2023 to 12-29-2023 Isaias Lujan MD - 12/29/2023 2:00 PM Tristan Gonzalez RN - 12/29/2023 2:00 PM ROMAN Granados - 12/23/2023 11:20 AM PATRICIA Jeffrey - 11/26/2023 3:00 PM EST Note Date & Type Note Facility 12-29-2023 History of Presen t illness Narrative [facility] Maternal- Medicine Office Visit Note HPI: [...] morning for 210 days. 10/29/23 05/26/24 Lucia Kim MD ondansetron (ZOFRAN) 4 mg tablet Take [...] continue with routine care in your office [facility], the CDC, and other organizations representing maternal and public health professionals recommend that , , and lactating people and those considering receive the COVID-19 vaccination. Vaccination is the best method to reduce maternal and complications of SARS-CoV-2 infection. This document was created with [employer] technology. Though I make every effort to review the dictation as it is transcribed, on occasion the spoken word can be misinterpreted by the technology leading to inappropriate words, phrases, or sentences. This note is addressed to the requesting provider as a consultation for clinical guidance. Specific medical abbreviations are occasionally used and those are generally approved by the [place]?Board of?Obstetrics and?Gynecology?as well as?Merly de anda abbreviations. The above plan of care was based solely on the diagnoses for which a consultation was requested. ?More frequent testing may be indicated based on her other medical/obstetrical conditions. The management of other or medical conditions is beyond the scope of requested consultation and will continue to be followed by the primary harness fitter or primary care provider. Thank you for [...] procedures Referring and communicating with other health healthcare administrative assistant (not separately reported) Documenting clinical information in [...] provider today? No [facility] History of Presen t illness Narrative [...] of: ROMAN Valadez documented in this encounter [facility] 11-26-2023 History of Presen t illness Narrative Summary: [facility] Genetic Counseling Note Images from the original note were not included. Provider at different site/location than patient. I confirmed the patient is located in the [facility]. Lenora Galaviz is currently at home and provider at remote site. The patient consented to be treated electronically via this form of telemedicine. This visit was not related to an office visit or procedure in the past 7 days, and in-office follow up is not recommended in the next 24 hours. Video Visit via Real-time Synchronous Audiovisual Provider Location: [facility] AT [address] [phone] Patient Location: Patient's home Patient Location Heavy Equipment Technician: None Video Visit Consent Statement: I [...] that there are some limitations compared to [id number] evaluations. We elected to proceed. Name: Lenora Galaviz : 1985 Date of Visit: 11/26/2023 Email: [email or web address] Preferred contact method: email Partner's Name: Mohit Age: 45 Requesting Physician: Lucia Kim MD [address] [place], [place] [id number] Reason for Referral: Lenora Galaviz is a 38 y.o. female who presented to [facility] Telemedicine Clinic. Lenora is here at the request of Lucia Kim MD due to abnormal non-invasive screening in [...] - negative Performing lab: [facility] Test type: Heavy Repairer Screen without X-linked Disorders (CF and SMA) [...] slight increased risk of new gene mutations. ([employer] Statement on Guidance [...] greater than ~5 Mb. Karyotype can also picker machine operator mosaicism potentially as low [...] Causes, Treatment ENZO (rarediseases.org) Triple_X_syndrome Trisomy_X FTNW.pdf (rareDujour Appromo.org) I personally spent 30 minutes in bylk-wu-artc time with this patient. I provided genetic [...] call or email their genetic counselor at [phone] or [email or web address] if any additional questions or concerns should arise. PATRICIA Grant Licensed, Certified Genetic Counselor documented in this encounter [facility] 11-11-2023 Miscellaneous Notes Attempted to call patient regarding carrier results. No answer, left VM to call back. documented in this encounter [facility] 11-11-2023 Telephone encounter Note Attempted to call patient regarding carrier results. No answer, left VM to call back. 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, antepartum [facility] Diagnosis Third trimester state, incidental Diabetes mellitus screening Screening for diabetes mellitus [facility] Diagnosis Multigravida of advanced maternal age in second trimester- Primary Abnormal genetic test during Circumvallate placenta in second trimester Thyroid disease affecting 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, antepartum 24 weeks gestation of documented in this encounter [facility] SystemInstructionsNot on filedocumented in this encounter [employer] SystemInstructionsNot on filedocumented in this encounter [employer] SystemInstructionsNot on filedocumented in this encounter [employer] SystemInstructionsNot on filedocumented in this encounter [facility] (narrative)* Consultation (Routine) - Pending Review Specialty Diagnoses / Procedures Referred By Contac t Referred To Contact Maternal and Medicine Diagnoses Multigravida of advanced maternal age in second trimester Abnormal genetic test during Lucia Kim MD [address] [place], [address] [place] [address] [facility]aternal Med [address] [place] [address] Referral ID Status Reason Start Date Expiration Date Visits Requested Visits Authorized [id number] Pending Review Specialty Services Required 3 11/03/2024 1 1 [facility] N[facility]* Consultation (Routine) - Pending Review Specialty Diagnoses / Procedures [facility] Referred To Contact Maternal [facility] Medicine Diagnoses Multigravida of advanced maternal age in second trimester Abnormal genetic test during Lucia Kim MD [address] [place], [address] [place] [address] [facility]aternal Med [address] [place] [address] Referral ID Status Reason Start Date Expiration Date Visits Requested Visits Authorized [id number] Pending Review Specialty Services Required 3 11/03/2024 1 1 [facility] Summary Purpose Family History No Family History Records FoundNo Family History Records FoundNo Family History Records FoundNo Family History Records Found Advance Directives No Advanced Directives Records FoundNo Advanced Directives Records FoundNo Advanced Directives Records FoundNo Advanced Directives Records Found Additional Source Comments INFORMATION SOURCE (unrecogn ized section and content) DATE CREATED AUTHOR 01/17/2023 [facility] DATE CREATED AUTHOR AUTHOR'S ORGANIZ ATION 12/04/2023 [facility] DATE CREATED AUTHOR AUTHOR'S ORGANIZ ATION 01/06/2024 [facility] DATE CREATED AUTHOR AUTHOR'S ORGANIZ ATION 03/24/2024 [facility] dical Specialists EPIC Reason for Visit (unrecogniz ed section and content) Reason Comments Routine Visit Reason Comments Marginal Insertion of Umbilical Cord Advanced Maternal Age Circumvallate Placenta Care Teams (unrecognized sec tion and content) 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 [facility] Guest of a Guest [facility]. provides no warranty or guarantee of the accuracy or completeness of information in this document.
[2024-03-26 17:33] VITALS: BP 119/73; PULSE 104
== END 2024-03-26 18:05 | disposition home or self-care (01) ==
LOC: FBCO 02:54 → FBC 17:29
PROVIDERS: Visit Provider Obstetrics & Gynecology
DX: O09.523 Supervision of elderly multigravida, third trimester (principal)
CPT/HCPCS: 59025

== ENCOUNTER 2024-03-30 07:35 | Outpatient (OUT) | payer BC, OTHER, SELFPAY ==
--- OUTSIDE RECORDS SUMMARY | 2024-03-30 08:26 | XMS_ITS | CCD ---
Author Organization [facility] Care Team Providers Care Surveillance Supervisor Name Role Phone AKIKO ., DR [...] UA Negative Negative - 4(70) +++ mg/dL [facility] Blood, UA Negative Negative - 50 Ari/mcL [facility] Clarity, UA Clear [facility] re Color, UA Yellow [facility] e Glucose, UA Negative Negative - 1999(110) ++++ mg/dL [facility] Interpretation and review of laboratory results Normal [facility] Ketones, UA Negative Negative - 160(16) ++++ mg/dL [facility] Leukocytes, UA Negative Negative - 500+++ Panchito/mcL [facility] Nitrite, UA Negative Negative - Positive [facility] pH, UA 7.5 5 - 9 [facility] Healthcar e Protein, UA Negative Negative - 2000(20) ++++ mg/dL [facility] Spec Grav, UA 1.015 1 - 1.03 [facility] Urobilinogen, UA 0.2 0.2 - 12 mg/dL [facility] FREE T3on 10-29-2023 Free T3 [Mass/Vol] 2.72 pg/mL Normal 2.50-3.90 [facility] Comment on above: Performed By: #### 3 051-0, THYR #### [facility] ([id number]) [address], [address] [place] [address] THYROID PROFILEon 10-29-2023 Free T4 [Mass/Vol] 0.85 ng/dL Normal 0.61-1.60 [facility] Comment on above: Performed By: #### 3 051-0, THYR #### [facility] ([id number]) [address], [address] [place] [address] TSH 0.18 uIU/mL Low 0.49-4.67 [facility] Comment on above: Performed By: #### 3 051-0, THYR #### [facility] ([id number]) [address], [address] [place] [address] Thyroid stimulating immunogl obulins Qn (S)on 10-29-2023 TSI See Below Normal [facility] Comment on above: Result Comment: NOTE [...] is required. Test Performed By: [facility] [address] [place] [address] Hook Up: Jose Enrique Samuel III, M.D. CLIA #[id number] Performed By: #### 3 051-0, THYR #### [facility] ([id number]) [address], [address] [place] [address] PAP ACOG PANEL 1: 30 to 65on 01-15-2023 . . Normal [facility] Comment on above: Result Comment: Perf ormed at: WB Performed By: #### 4 [id number] #### [facility] [address] [place] [address] Dr. Ata Lee Gdln ACOG Testing 30-65 Normal [facility] Comment on above: Performed By: #### [id number] #### [facility] [address] [place] [address] Dr. Ata Rao DIAGNOSIS: Comment Normal [facility] Comment on above: Result Comment: NEGA TIVE FOR INTRAEPITHELIAL LESION OR MALIGNANCY. CELLULAR CHANGES ASSOCIATED WITH INFLAMMATION ARE PRESENT. THIS SPECIMEN WAS RESCREENED PART OF OUR MAT INSPECTOR PROGRAM. Performed at: WB Performed By: #### 4 [id number] #### [facility] [address] [place] [address] Dr. Ata Rao HPV Aptima Negative Normal Negative [facility] Comment on above: Result Comment: This nucleic acid amplification test detects fourteen high-risk HPV types (16,18,31,33,35,39,45,51,52,56,58,59,66,68) without differentiation. Performed at: =G Performed By: #### 4 [id number] #### [facility] [address] [place] [address] Dr. Ata Rao HPV Genotype Reflex Comment Normal [facility] Comment on above: Result Comment: Crit eria not met, HPV Genotype not performed. Performed at: WB Performed By: #### 4 [id number] #### [facility] [address] [place] [address] Dr. Ata Rao Methodology: Comment Normal [facility] Comment on above: Result Comment: This liquid based ThinPrep(R) pap test was screened with the use of an image guided system. Performed at: WB Performed By: #### 4 [id number] #### [facility] [address] [place] [address] Dr. Ata Rao Note: Comment Normal [facility] Comment on above: Result Comment: The Pap smear is a screening test designed to aid in the detection of premalignant and malignant conditions of the uterine cervix. It is not a diagnostic procedure and should not be used as the sole means of detecting cervical cancer. Both false-positive and false-negative reports do occur. . Performed at: WB Performed By: #### 4 [id number] #### [facility] [address] [place] [address] Dr. Ata Rao Performed by: Comment Normal [facility] Comment on above: Result Comment: Matt Tang, Yard Foreman (ASCP) Performed at: WB Performed By: #### 4 [id number] #### [facility] [address] [address] [address] Ata Rao QC reviewed by: Comment Normal [facility] Comment on above: Result Comment: Jeanette Zhang, Supervisory Yard Foreman (ASCP) Performed at: WB Performed By: #### 4 [id number] #### [facility] [address] [address] [address] Ata Rao Specimen adequacy: Comment Normal [facility] Comment on above: Result Comment: Sati sfactory for evaluation. Endocervical and/or squamous metaplastic cells (endocervical component) are present. Performed at: WB Performed By: #### 4 [id number] #### [facility] [address] [place] [address] Dr. Ata Rao Vital Signs Date Time Vital Sign Value Performing Clinician Faci lity 12-29-2023 13:10-0500 Body height 163.8 cm Isaias Lujan MD Work Phone: [facility] 12-29-2023 13:10-0500 Body mass index (BMI) [Ratio] 21.26 kg/m2 Isaias Lujan MD Work Phone: [facility] 12-29-2023 13:10-0500 Body weight 57.06 kg Isaias Lujan MD Work Phone: [facility] 12-29-2023 13:10-0500 Diastolic blood pressure 54 mm[Hg] Isaias Lujan MD Work Phone: [facility] 12-29-2023 13:10-0500 Heart rate 82 /min Isaias Lujan MD Work Phone: [facility] 12-29-2023 13:10-0500 Systolic blood pressure 112 mm[Hg] Isaias Lujan MD Work Phone: [facility] 12-23-2023 11:32-0500 Body mass index (BMI) [Ratio] 21.46 kg/m2 Mamta OWENS Work Phone: [facility] 12-23-2023 11:32-0500 Body weight 56.7 kg Mamta OWENS Work Phone: [facility] 12-23-2023 11:32-0500 Diastolic blood pressure 68 mm[Hg] Mamta OWENS Work Phone: [facility] 12-23-2023 11:32-0500 Systolic blood pressure 104 mm[Hg] Mamta OWENS Work Phone: [facility] Healthcare Encounters Encounter Date Encounter Type Care Provider Facility Start: 03-22-2024 End: 03-22-2024 ambulatory MAMTA PLATA Not Available Start: 03-08-2024 End: 03-08-2024 ambulatory LILIAN KRISTA Not Available Start: 02-23-2024 End: 02-23-2024 ambulatory MAMTA PLATA Not Available Start: 02-04-2024 End: 02-04-2024 ambulatory LILIAN KRISTA Not Available Start: 01-21-2024 End: 01-21-2024 ambulatory LILIAN KRISTA Not Available Start: 12-29-2023 End: 12-30-2023 ambulatory ISAIAS [facility] Start: 12-29-2023 End: 12-29-2023 Office outpatient visit 25 minutes Isaias Lujan MD Work Phone: [facility] Comment on above: Multigravida of adva nced maternal age in second trimester (Primary Dx); Abnormal genetic test during ; Circumvallate placenta in second trimester; Thyroid disease affecting ; 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, antepartum; 24 weeks gestation of Start: 12-23-2023 End: 12-23-2023 ambulatory MAMTA PLATA Not Available Start: 12-23-2023 End: 12-23-2023 flow sheet Mamta OWENS Work Phone: [facility] Comment on above: Third trimester preg lalit; Diabetes mellitus screening Start: 12-21-2023 Chart abstracting Mamta OWENS Work Phone: [facility] Start: 12-01-2023 End: 12-02-2023 ambulatory EDWIN COVINGTONSAEPEACE [facility] Start: 11-26-2023 End: 11-26-2023 ambulatory [facility] Start: 11-26-2023 End: 11-26-2023 Telemedicine consultation with patient Edwin Toth MD Work Phone: [facility] Comment on above: Abnormal genetic sadi t during (Primary Dx); Multigravida of advanced maternal age in second trimester; 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, antepartum Start: 11-24-2023 End: 11-24-2023 ambulatory LILIAN KING Not Available Start: 11-11-2023 Telephone encounter Ashley Higgins RN Mat ernal- Medicine at [facility] Start: 11-04-2023 Orders Only Radha Sy RN Materna l- Medicine at [facility] Comment on above: Multigravida of adva nced maternal age in second trimester (Primary Dx); Abnormal genetic test during Start: 10-29-2023 End: 10-31-2023 ambulatory NOT IN SYSTEM REF PROV [facility] Start: 10-27-2023 End: 10-27-2023 ambulatory MAMTA [...] Author Start: 12-29-2024 Tobacco Screening Tobacco Screening [facility] Start: 10-30-2024 Tobacco Screening Tobacco Screening [facility] Start: 02-08-2024 End: 02-08-2024 Patient encounter procedure 02/08/2024 9:00 AM EDT Office Visit [facility] [address] [place] [address] Lilian King, DO [address] [place] [address] [facility] Start: 01-21-2024 End: 01-21-2024 Patient encounter procedure 01/21/2024 9:40 AM EDT Routine [facility] [address] [place] [address] Lilian King, DO [address] [place] [address] [facility] Start: 12-23-2023 End: 12-23-2024 CBC panel - Blood by Automated count CBC Lab Routine Diabetes mellitus screening Expected: 12/23/2023 (Approximate), Expires: 12/23/2024 [facility] Healthcare Work Phone: Comment on above: Expected: 12/23/2023 (Approximate), Expires: 12/23/2024 Start: 12-23-2023 End: 12-23-2024 Measurement of glucose 1 hour after glucose challenge for glucose tolerance test Glucose tolerance, 1 hour Lab Routine Diabetes mellitus screening Expected: 12/23/2023 (Approximate), Expires: 12/23/2024 [facility] Healthcare Comment on above: Expected: 12/23/2023 (Approximate), Expires: 12/23/2024 Start: 12-23-2023 End: 12-23-2023 Patient encounter procedure 12/23/2023 11:20 AM EST Routine [facility] [address] [place] [phone] Mamta Plata PA [address] [place], [place] [id number] Third trimester [facility] Comment on above: Third trimester preg lalit Start: 12-03-2023 End: 12-03-2023 Patient encounter procedure 12/03/2023 11:00 AM EST Appointment [facility] [address] [place] [address] [place] [address] [facility] [place] Start: 12-01-2023 End: 12-01-2023 Patient encounter procedure 12/01/2023 1:30 PM EST Appointment [facility] [address] [place] [address] [facility] Start: 11-26-2023 End: 11-26-2023 Telemedicine consultation with patient 11/26/2023 3:00 PM EST Telemedicine [facility] at [facility] [address] [facility] [place] [id number] Edwin Toth MD [address] [facility], [address] [place] [address] Nataly Koo, [facility] [address] [place] [address] [facility] Start: 07-10-2023 Influenza vaccination Influenza Vacc ine [facility] Start: 2008 Screening for malign ant neoplasm of cervix Pap Smear [facility] Start: 2005 Adult BMI Screening Adult BMI Screen ing [facility] Start: 1999 Depression Screening Depression Scre ening [facility] Start: 1998 DTaP,Tdap and Td Vaccines (5 - Tdap) DTaP,Tdap and Td Vaccines (5 - Tdap) [facility] Payers Date Payer Category [place] [id number] 2023-Present [phone] [address] [place] [address] [id number] 2023 Medicaid [id number] 2019 Unknown [id number] [id number] 2019 Unknown [id number] 1987 Unknown [id number] 2.16.840.1.778491.3.579.2.593 1987 Unknown [id number] 2.16.840.1.374771.3.579.2.1286 1987 Unknown [id number] 2.16.840.1.310371.3.579.2.128 1987 Unknown [id number] 2.16.840.1.678281.3.579.2.128 1987 Unknown [id number] 2.16.840.1.722711.3.579.2.1285 1987 Unknown [id number] 2.16.840.1.278877.3.579.2.6 1987 Unknown [id number] 2.16.840.1.178976.3.579.2.1285 1987 Unknown [id number] 2.16.840.1.104003.3.579.2.1259 1987 Unknown [id number] 2.16.840.1.409873.3.579.2.1258 1987 Unknown [id number] 2.16.840.1.823334.3.579.2.9 1987 Unknown [id number] 2.16.840.1.811830.3.579.2.9 1987 Unknown [id number] 2.16.840.1.823448.3.579.2.9 1987 Unknown [id number] 2.16.840.1.092708.3.579.2.1258 1987 Unknown [id number] 2.16.840.1.150245.3.579.2.9 1987 Unknown [id number] 2.16.840.1.376017.3.579.2.1258 1987 Unknown [id number] 2.16.840.1.690969.3.579.2.1259 1959 Unknown [id number] Social History Date Type Detail Facility Start: 05-24-2023 End: 10-26-2023 Tobacco smoking status NHIS Ex-smoker [facility] History of tobacco use Current smoker [facility] History of tobacco use Cigarette Smoker P [facility] Start: 10-30-2023 End: 11-24-2023 Alcohol intake Lifetime non-drinker (finding) [facility] Start: 10-30-2023 End: 12-29-2023 History of Social function [facility] Start: 10-30-2023 End: 12-29-2023 Tobacco use panel [facility] Housing Instability Unknown [facility] Start: 07-24-2023 [facility] Start: 1985 Sex Assigned At Not on file P [facility] Start: 1985 Sex Assigned At Female N [facility] Start: 05-26-2023 Gender identity Identifies as female gender (finding) [facility] Start: 12-29-2023 Alcohol intake Ex-drinker (finding) [facility] Clinical Notes 11-11-2023 to 12-29-2023 [facility] Prabhjot Lujan MD - 12/29/2023 2:00 PM Tristan Gonzalez RN - 12/29/2023 2:00 PM ROMAN Granados - 12/23/2023 11:20 AM PATRICIA Jeffrey - 11/26/2023 3:00 PM EST Note Date & Type Note Facility 12-29-2023 History of Presen t illness Narrative [facility] Maternal- Medicine Office Visit Note HPI: Lenora Weaver Guillaume is a 38 y.o. @ 24w4d who [...] the morning for 210 days. 10/29/23 05/26/24 Edwin Toth MD ondansetron (ZOFRAN) 4 mg tablet [...] continue with routine care in your office [facility], the CDC, and other organizations representing maternal and public health professionals recommend that , , and lactating people and those considering receive the COVID-19 vaccination. Vaccination is the best method to reduce maternal and complications of SARS-CoV-2 infection. This document was created with [employer]erbee technology. Though I make every effort to review the dictation as it is transcribed, on occasion the spoken word can be misinterpreted by the technology leading to inappropriate words, phrases, or sentences. This note is addressed to the requesting provider as a consultation for clinical guidance. Specific medical abbreviations are occasionally used and those are generally approved by the [place]?Board of?Obstetrics and?Gynecology?as well as?Merly de anda abbreviations. The above plan of care was based solely on the diagnoses for which a consultation was requested. ?More frequent testing may be indicated based on her other medical/obstetrical conditions. The management of other or medical conditions is beyond the scope of requested consultation and will continue to be followed by the primary confidential investigator or primary care provider. Thank you for [...] procedures Referring and communicating with other health college and career counselor (not separately reported) Documenting clinical information in [...] provider today? No [facility] History of Presen t illness Narrative [...] of: ROMAN Valadez documented in this encounter [facility] 11-26-2023 History of Presen t illness Narrative Summary: [facility] Genetic Counseling Note Images from the original note were not included. Provider at different site/location than patient. I confirmed the patient is located in the [facility]. Lenora Galaviz is currently at home and provider at remote site. The patient consented to be treated electronically via this form of telemedicine. This visit was not related to an office visit or procedure in the past 7 days, and in-office follow up is not recommended in the next 24 hours. Video Visit via Real-time Synchronous Audiovisual Provider Location: [facility] MATERNAL- MEDICINE AT [address] [phone] Patient Location: Patient's home Patient Location Res Habilitation Assistant: None Video Visit Consent Statement: I discussed [...] that there are some limitations compared to vwkl-yq-ctyh evaluations. We elected to proceed. Name: Lenora Galaviz : 1985 Date of Visit: 11/26/2023 Email: [email or web address] Preferred contact method: email Partner's Name: Mohit Age: 45 Requesting Physician: Edwin Toth MD [address] [place] [address] Reason for Referral: Lenora Galaviz is a 38 y.o. female who presented to [facility]. Lenora is here at the request of Edwin Toth MD due to abnormal non-invasive screening [...] - negative Performing lab: [facility] Test type: [facility] Labor Supervisor Screen without X-linked Disorders (CF and SMA) [...] slight increased risk of new gene mutations. ([place] [employer] Statement on Guidance [...] greater than ~5 Mb. Karyotype can also fruit picker mosaicism potentially as low as ~10%. [...] Causes, Treatment ENZO (rarediseases.org) Triple_X_syndrome Trisomy_X FTNW.pdf (rarechMicrobank Softwareo.org) I personally spent 30 minutes in qtjn-qp-ufpv time with this patient. I provided genetic [...] call or email their genetic counselor at [phone] or [email or web address] if any additional questions or concerns should arise. PATRICIA Grant Licensed, Certified Genetic Counselor documented in this encounter [facility] 11-11-2023 Miscellaneous Notes Attempted to call patient regarding carrier results. No answer, left VM to call back. documented in this encounter [facility] 11-11-2023 Telephone encounter Note Attempted to call patient regarding carrier results. No answer, left VM to call back. 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, antepartum [facility] Diagnosis Third trimester state, incidental Diabetes mellitus screening Screening for diabetes mellitus documented in this encounter [facility] HealthcareEvaluation note* Diagnosis Multigravida of advanced maternal age in second trimester- Primary Abnormal genetic test during Circumvallate placenta in second trimester Thyroid disease affecting 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, antepartum 24 weeks gestation of documented in this encounter [facility] SystemInstructionsNot on filedocumented in this encounter [facility]Not on filedocumented in this encounter [facility] SystemInstructionsNot on filedocumented in this encounter [facility] SystemInstructionsNot on filedocumented in this encounter [facility] (narrative)* Consultation (Routine) - Pending Review Specialty Diagnoses / Procedures [facility] Referred To Contact Maternal and Medicine Diagnoses Multigravida of advanced maternal age in second trimester Abnormal genetic test during Edwin Toth MD [address] [place], [address] [place] [address] [facility] Maternal Med [address] [place] [address] Referral ID Status Reason Start Date Expiration Date Visits Requested Visits Authorized [id number] Pending Review Specialty Services Required 3 11/03/2024 1 1 [facility] N[facility]ative* Consultation (Routine) - Pending Review Specialty Diagnoses / Procedures Referred By Juanita tello Referred To Contact Maternal and Medicine Diagnoses Multigravida of advanced maternal age in second trimester Abnormal genetic test during Edwin Toth MD [address] [place], [address] [place] [address] [facility] Maternal Med [address] [place] [address] Referral ID Status Reason Start Date Expiration Date Visits Requested Visits Authorized [id number] Pending Review Specialty Services Required 3 11/03/2024 1 1 [facility] Summary Purpose Family History No Family History Records FoundNo Family History Records FoundNo Family History Records FoundNo Family History Records Found Advance Directives No Advanced Directives Records FoundNo Advanced Directives Records FoundNo Advanced Directives Records FoundNo Advanced Directives Records Found Additional Source Comments INFORMATION SOURCE (unrecogn ized section and content) DATE CREATED AUTHOR 01/17/2023 [facility] DATE CREATED AUTHOR AUTHOR'S ORGANIZ ATION 12/04/2023 [facility] DATE CREATED AUTHOR AUTHOR'S ORGANIZ ATION 01/06/2024 [facility] DATE CREATED AUTHOR AUTHOR'S ORGANIZ ATION 03/24/2024 [facility] dical Specialists EPIC Reason for Visit (unrecogniz ed section and content) Reason Comments Routine Visit Reason Comments Marginal Insertion of Umbilical Cord Advanced Maternal Age Circumvallate Placenta Care Teams (unrecognized sec tion and content) Surveillance Supervisor Relationship Specialty Start Date End Date No Pcp[place] [address] PCP - General Family Medicine 12/01/23 FOR [...] BE BASED ON THE PRIMARY CLINICAL RECORDS. [facility] provides no warranty or guarantee of the accuracy or completeness of information in this document.
--- NOTE | 2024-03-30 19:01 | US_ITS ---
[address] [address] Patient Name: YULIANA FLORES MRN: [facility]:[id number] date: 1985 Sex: F Assigned Patient Location: US Current Patient Location: US Accession/Order Number: [id number] Exam Date: 03/30/2024 19:15 Report Date: 03/31/2024 07:09 At the request of: CHU MCKEE Procedure: US OB BPP w non-stress EXAMINATION: US OB BPP w non-stress HISTORY: ama COMPARISON: 03/23/2024 TECHNIQUE: Ultrasound biophysical profile was performed in the radiology department. non-reactive stress testing was performed by nursing staff in the birthing center. FINDINGS: BREATHING MOVEMENTS: 2.0 GROSS BODY MOVEMENTS: 2.0 TONE: 2.0 QUALITATIVE AMNIOTIC FLUID VOLUME: 2.0 PRESENTATION: BREECH HEART RATE: 140.6 bpm H.B./min AMNIOTIC FLUID VOLUME: 10.9 cm cm GESTATIONAL AGE: 37 weeks 5 days CONCLUSION: Total biophysical profile score: 8.0 Electronically authenticated by: KIYA FARMER Date: 03/31/2024 07:09
[2024-03-30 19:34] VITALS: TEMP 36.6
[2024-03-30 19:35] VITALS: BP 110/67; PULSE 85
== END 2024-03-30 20:15 | disposition home or self-care (01) ==
LOC: US 08:04 → FBC 18:57
PROVIDERS: Visit Provider Obstetrics & Gynecology
DX: O09.523 Supervision of elderly multigravida, third trimester (principal); Z3A.37 37 weeks gestation of pregnancy
CPT/HCPCS: 76818

== ENCOUNTER 2024-04-01 07:25 | Outpatient (RCR) | payer BC, OTHER, SELFPAY ==
[2024-03-21 09:28] VITALS: BP 102/66; PULSE 75; TEMP 36.8; O2SAT 99
[2024-03-21] MEDS: IRON SUCROSE COMPLEX 100 MG in 0.9 % SODIUM CHLORIDE 100 ML 420 MG IV (09:40)
--- NOTE | 2024-03-21 09:58 | PC.NURSE ---
0 0900 arrival ambulatory, instructed on venofer infusion, educated on s/s of reaction ie itching shortness of breath, wheezing etc [facility] verbalize understanding 0945 venofer initiated at 100ml/hr over 15 mins 1000 tolerating infusion no s/s of reaction rate increased to 200ml hr for remainder of infusion.
[2024-03-23 09:11] VITALS: BP 109/63; PULSE 87; TEMP 36.8; O2SAT 98
--- NOTE | 2024-03-23 09:12 | PC.NURSE ---
0900 Arrrival ambulatory. Patient stated tolerated 1st infusion without any issues. #24 initiated rt forearm, see documentation
[2024-03-23] MEDS: IRON SUCROSE COMPLEX 200 MG in 0.9 % SODIUM CHLORIDE 100 ML 220 MG IV (09:18)
[2024-03-25 09:25] VITALS: BP 113/65; PULSE 88; TEMP 36.9; O2SAT 100
--- NOTE | 2024-03-25 09:34 | PC.NURSE ---
Patient is here for her third dose of venofer, she states she tolerated her two other infusions well. Vitals obtained and stable, IV started on her right forearm with good blood return, denies any pain.
[2024-03-25] MEDS: IRON SUCROSE COMPLEX 200 MG in 0.9 % SODIUM CHLORIDE 100 ML 220 MG IV (10:06)
--- NOTE | 2024-03-25 10:42 | PC.NURSE ---
She tolerated Venofer infusion well and denies any issues. IV was discontinued, she denies any pain, redness at site. Pt was discharged home ambulatory.
[2024-03-28 09:20] VITALS: BP 102/65; PULSE 81; TEMP 36.8; O2SAT 99
[2024-03-28] MEDS: IRON SUCROSE COMPLEX 100 MG in 0.9 % SODIUM CHLORIDE 100 ML 420 MG IV (09:41)
--- NOTE | 2024-03-28 10:07 | PC.NURSE ---
Patient is here for iron infusion, she tolerated her previous ones well without reaction. Vitals obtained and stable, a 24 g was started in her right forearm with good blood return. She completed infusion well without any complaints. IV discontinued and pt was discharged home ambulatory.
[2024-03-30 09:28] VITALS: BP 107/68; PULSE 71; TEMP 36.2; O2SAT 100
[2024-03-30] MEDS: IRON SUCROSE COMPLEX 200 MG in 0.9 % SODIUM CHLORIDE 100 ML 220 MG IV (10:00)
--- NOTE | 2024-03-30 10:33 | PC.NURSE ---
0928: Pt. to [facility] amb. for iron infusion. Seated in recliner. VSS. #22 gauge IV initiated to right forearm on first attempt. Pt. tolerated without c/o. Pillow provided. Declines blanket, snack or beverage. 1000: IV Venofer initiated at this time. Denies needs. 1030: Venofer completed without s&s of adverse reaction. IV d/c'd, pressure to site. D/c'd amb. to home.
[2024-04-01 09:30] VITALS: BP 110/67; PULSE 87; TEMP 37; O2SAT 94
[2024-04-01] MEDS: IRON SUCROSE COMPLEX 200 MG in 0.9 % SODIUM CHLORIDE 100 ML 220 MG IV (09:39)
--- NOTE | 2024-04-01 10:55 | PC.NURSE ---
0930: Pt. to [facility] amb. for last iron infusion. Seated in recliner. VSS. IV initiated, see documentation.
--- NOTE | 2024-04-01 10:57 | PC.NURSE ---
0939: IV Venofer initiated at this time. Pt. eating snacks from home. Denies needs or c/o. 1012: Venofer completed without s&s of adverse reaction. 1017: IV d/c'd, pressure to site. D/c'd amb. to home.
== END 2024-04-08 23:59 | disposition home or self-care (01) ==
LOC: INF 07:25
PROVIDERS: Visit Provider Obstetrics & Gynecology
DX: O09.523 Supervision of elderly multigravida, third trimester (principal); Z3A.37 37 weeks gestation of pregnancy; O99.013 Anemia complicating pregnancy, third trimester; D64.9 Anemia, unspecified
CPT/HCPCS: 76818; 96365; J1756

== ENCOUNTER 2024-04-05 07:00 | Observation (INO) | payer BC, OTHER, SELFPAY ==
--- OUTSIDE RECORDS SUMMARY | 2024-04-05 07:04 | XMS_ITS | CCD ---
Author Organization [facility] Care Team Providers Care [employer] Bl[employer] Press Operator Name Role Phone AKIKO ., DR [...] UA Negative Negative - 4(70) +++ mg/dL [facility] Blood, UA Negative Negative - 50 Ari/mcL [facility] Clarity, UA Clear [facility] re Color, UA Yellow [facility] Healthcar e Glucose, UA Negative Negative - 1999(110) ++++ mg/dL [facility] Interpretation and review of laboratory results Normal [facility] Ketones, UA Negative Negative - 160(16) ++++ mg/dL [facility] Leukocytes, UA Negative Negative - 500+++ Panchito/mcL [facility] Nitrite, UA Negative Negative - Positive [facility] pH, UA 7.5 5 - 9 [facility] Healthcar e Protein, UA Negative Negative - 2000(20) ++++ mg/dL [facility] Spec Grav, UA 1.015 1 - 1.[address] [facility] Urobilinogen, UA 0.2 0.2 - 12 mg/dL [facility] FREE T3on 10-29-2023 Free T3 [Mass/Vol] 2.72 pg/mL Normal 2.50-3.90 [facility] Comment on above: Performed By: #### 3 051-0, THYR #### [facility] ([id number]) [address], [address] [place] [address] THYROID PROFILEon 10-29-2023 Free T4 [Mass/Vol] 0.85 ng/dL Normal 0.61-1.60 [facility] Comment on above: Performed By: #### 3 051-0, THYR #### [facility] ([id number]) [address], [address] [place] [address] TSH 0.18 uIU/mL Low 0.49-4.67 [facility] Comment on above: Performed By: #### 3 051-0, THYR #### [facility] ([id number]) [address], [address] [place] [address] Thyroid stimulating immunogl obulins Qn (S)on 10-29-2023 TSI See Below Normal [facility] Comment on above: Result Comment: [...] Clinical correlation is required. Test Performed By: [facility] [address] [place] [address] Search Engine Marketing Strategist: Jose Enrique Samuel III, M.D. CLIA #[id number] Performed By: #### 3 051-0, THYR #### [facility] ([id number]) [address], [address] [place] [address] PAP ACOG PANEL 1: 30 to 65on 01-15-2023 . . Normal [facility] Comment on above: Result Comment: Perf ormed at: WB Performed By: #### 4 [id number] #### [facility] [address] [address] [address] Ata Lee Gdln ACOG Testing 30-65 Normal [facility] Comment on above: Performed By: #### 4 [id number] #### [facility] [address] [place] [address] Dr. Ata Rao DIAGNOSIS: Comment Normal [facility] Comment on above: Result Comment: NEGA TIVE FOR INTRAEPITHELIAL LESION OR MALIGNANCY. CELLULAR CHANGES ASSOCIATED WITH INFLAMMATION ARE PRESENT. THIS SPECIMEN WAS RESCREENED PART OF OUR INDUSTRIAL CHEMISTRY TEACHER PROGRAM. Performed at: WB Performed By: #### 4 [id number] #### [facility] [address] [place] [address] Dr. Ata Rao HPV Aptima Negative Normal Negative [facility] Comment on above: Result Comment: This nucleic acid amplification test detects fourteen high-risk HPV types (16,18,31,33,35,39,45,51,52,56,58,59,66,68) without differentiation. Performed at: =G Performed By: #### 4 [id number] #### [facility] [address] [place] [address] Dr. Ata Rao HPV Genotype Reflex Comment Normal [facility] Comment on above: Result Comment: Crit eria not met, HPV Genotype not performed. Performed at: WB Performed By: #### 4 [id number] #### [facility] [address] [place] [address] Dr. Ata Rao Methodology: Comment Normal [facility] Comment on above: Result Comment: This liquid based ThinPrep(R) pap test was screened with the use of an image guided system. Performed at: WB Performed By: #### 4 [id number] #### [facility] [address] [place] [address] Dr. Ata Rao Note: Comment Normal [facility] Comment on above: Result Comment: The Pap smear is a screening test designed to aid in the detection of premalignant and malignant conditions of the uterine cervix. It is not a diagnostic procedure and should not be used as the sole means of detecting cervical cancer. Both false-positive and false-negative reports do occur. . Performed at: WB Performed By: #### 4 [id number] #### [facility] [address] [place] [address] Dr. Ata Rao Performed by: Comment Normal [facility] Comment on above: Result Comment: Matt Tang, Conveyor Maintenance Mechanic (ASCP) Performed at: WB Performed By: #### 4 [id number] #### [facility] [address] [address] [address] Ata Rao QC reviewed by: Comment Normal [facility] Comment on above: Result Comment: Jeanette Zhang, Supervisory Conveyor Maintenance Mechanic (ASCP) Performed at: WB Performed By: #### 4 [id number] #### [facility] [address] [address] [address] Ata Rao Specimen adequacy: Comment Normal [facility] Comment on above: Result Comment: Sati sfactory for evaluation. Endocervical and/or squamous metaplastic cells (endocervical component) are present. Performed at: WB Performed By: #### 4 [id number] #### [facility] [address] [place] [address] Dr. Ata Rao Vital Signs Date Time Vital Sign Value Performing Clinician Hannah osman 12-29-2023 13:10-0500 Body height 163.8 cm Isaias Lujan MD Work Phone: [facility] 12-29-2023 13:10-0500 Body mass index (BMI) [Ratio] 21.26 kg/m2 Isaias Lujan MD Work Phone: [facility] 12-29-2023 13:10-0500 Body weight 57.06 kg Isaias Lujan MD Work Phone: [facility] 12-29-2023 13:10-0500 Diastolic blood pressure 54 mm[Hg] Isaias Lujan MD Work Phone: [facility] 12-29-2023 13:10-0500 Heart rate 82 /min Isaias Lujan MD Work Phone: [facility] 12-29-2023 13:10-0500 Systolic blood pressure 112 mm[Hg] Isaias Lujan MD Work Phone: [facility] 12-23-2023 11:32-0500 Body mass index (BMI) [Ratio] 21.46 kg/m2 Mamta OWENS Work Phone: [facility] 12-23-2023 11:32-0500 Body weight 56.7 kg Mamta OWENS Work Phone: [facility] 12-23-2023 11:32-0500 Diastolic blood pressure 68 mm[Hg] Mamta OWENS Work Phone: [facility] 12-23-2023 11:32-0500 Systolic blood pressure 104 mm[Hg] Mamta OWENS Work Phone: [facility] Healthcare Encounters Encounter Date Encounter Type Care Provider Facility Start: 03-29-2024 End: 03-29-2024 ambulatory LILIAN KRISTA Not Available Start: 03-22-2024 End: 03-22-2024 ambulatory MAMTA PLATA Not Available Start: 03-08-2024 End: 03-08-2024 ambulatory LILIAN KRISTA Not Available Start: 02-23-2024 End: 02-23-2024 ambulatory MAMTA PLATA Not Available Start: 02-04-2024 End: 02-04-2024 ambulatory LILIAN KRISTA Not Available Start: 01-21-2024 End: 01-21-2024 ambulatory LILIAN KRISTA Not Available Start: 12-29-2023 End: 12-30-2023 ambulatory [facility] Start: 12-29-2023 End: 12-29-2023 Office outpatient visit 25 minutes Isaias Lujan MD Work Phone: [facility] Comment on above: Multigravida of adva nced maternal age in second trimester (Primary Dx); Abnormal genetic test during ; Circumvallate placenta in second trimester; Thyroid disease affecting ; 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, antepartum; 24 weeks gestation of Start: 12-23-2023 End: 12-23-2023 ambulatory MAMTA PLATA Not Available Start: 12-23-2023 End: 12-23-2023 flow sheet Mamta OWENS Work Phone: [facility] Comment on above: Third trimester preg lalit; Diabetes mellitus screening Start: 12-21-2023 Chart abstracting Mamta OWENS Work Phone: [facility] Start: 12-01-2023 End: 12-02-2023 ambulatory [facility] Start: 11-26-2023 End: 11-26-2023 ambulatory [facility] Start: 11-26-2023 End: 11-26-2023 Telemedicine consultation with patient Evnedra Mati Toth MD Work Phone: [facility] Comment on above: Abnormal genetic sadi t during (Primary Dx); Multigravida of advanced maternal age in second trimester; 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, antepartum Start: 11-24-2023 End: 11-24-2023 ambulatory LILIAN KING Not Available Start: 11-11-2023 Telephone encounter Ashley Higgins RN Mat ernal- Medicine at [facility] Start: 11-04-2023 Orders Only Radha Sy RN Materna l- Medicine at [facility] Comment on above: Multigravida of adva nced maternal age in second trimester (Primary Dx); Abnormal genetic test during Start: 10-29-2023 End: 10-31-2023 ambulatory NOT IN SYSTEM REF PROV [facility] Start: 10-27-2023 End: 10-27-2023 ambulatory [...] Author Start: 12-29-2024 Tobacco Screening Tobacco Screening [facility] Start: 10-30-2024 Tobacco Screening Tobacco Screening [facility] Start: 02-08-2024 End: 02-08-2024 Patient encounter procedure 02/08/2024 9:00 AM EDT Office Visit [facility] [address] [facility] [place] [id number] Lilian King, DO [address] [place] [address] [facility] Start: 01-21-2024 End: 01-21-2024 Patient encounter procedure 01/21/2024 9:40 AM EDT Routine [facility] [address] [facility] [id number] Lilian King, DO [address] [place] [address] [facility] Start: 12-23-2023 End: 12-23-2024 CBC panel - Blood by Automated count CBC Lab Routine Diabetes mellitus screening Expected: 12/23/2023 (Approximate), Expires: 12/23/2024 [facility] Work Phone: Comment on above: Expected: 12/23/2023 (Approximate), Expires: 12/23/2024 Start: 12-23-2023 End: 12-23-2024 Measurement of glucose 1 hour after glucose challenge for glucose tolerance test Glucose tolerance, 1 hour Lab Routine Diabetes mellitus screening Expected: 12/23/2023 (Approximate), Expires: 12/23/2024 [facility] Comment on above: Expected: 12/23/2023 (Approximate), Expires: 12/23/2024 Start: 12-23-2023 End: 12-23-2023 Patient encounter procedure 12/23/2023 11:20 AM EST Routine [facility] [address] [facility] [phone] Mamta Plata PA [address] [place], [place] [id number] Third trimester [facility] Comment on above: Third trimester preg lalit Start: 12-03-2023 End: 12-03-2023 Patient encounter procedure 12/03/2023 11:00 AM EST Appointment [facility] [address] [place] [phone] [facility] Start: 12-01-2023 End: 12-01-2023 Patient encounter procedure 12/01/2023 1:30 PM EST Appointment [facility] - Ultrasound [address] [place] [address] [facility] - Ultrasound Start: 11-26-2023 End: 11-26-2023 Telemedicine consultation with patient 11/26/2023 3:00 PM EST Telemedicine [facility] at [facility] [address] [facility] [place] [id number] Lucia Toth MD [address] [address] Nataly Koo, [facility] [address] [place] [address] [facility] Start: 07-10-2023 Influenza vaccination Influenza Vacc ine [facility] Start: 2008 Screening for malign ant neoplasm of cervix Pap Smear [facility] Start: 2005 Adult BMI Screening Adult BMI Screen ing [facility] Start: 1999 Depression Screening Depression Scre ening [facility] Start: 1998 DTaP,Tdap and Td Vaccines (5 - Tdap) DTaP,Tdap and Td Vaccines (5 - Tdap) [facility] Payers Date Payer Category [place] [id number] 2023-Present [phone] [address] [place] [address] [id number] 2023 Medicaid [id number] 2019 Unknown [id number] [id number] [id number] 2019 Unknown [id number] 1987 Unknown [id number] 2.16.840.1.286876.3.579.2.593 1987 Unknown [id number] 2.16.840.1.981421.3.579.2.1286 1987 Unknown [id number] 2.16.840.1.541957.3.579.2.1286 1987 Unknown [id number] 2.16.840.1.239599.3.579.2.1286 1987 Unknown [id number] 2.16.840.1.842113.3.579.2.6 1987 Unknown [id number] 2.16.840.1.063428.3.579.2.6 1987 Unknown [id number] 2.16.840.1.568866.3.579.2.1286 1987 Unknown [id number] 2.16.840.1.645127.3.579.2.9 1987 Unknown [id number] 2.16.840.1.561995.3.579.2.9 1987 Unknown [id number] 2.16.840.1.521070.3.579.2.9 1987 Unknown [id number] 2.16.840.1.151974.3.579.2.1259 1987 Unknown [id number] 2.16.840.1.166128.3.579.2.9 1987 Unknown [id number] 2.16.840.1.152695.3.579.2.9 1987 Unknown [id number] 2.16.840.1.931061.3.579.2.9 1987 Unknown [id number] 2.16.840.1.428241.3.579.2.1259 1987 Unknown [id number] 2.16.840.1.967051.3.579.2.1259 1987 Unknown [id number] 2.16.840.1.444611.3.579.2.1259 1959 Unknown [id number] Social History Date Type Detail Facility Start: 05-24-2023 End: 10-26-2023 Tobacco smoking status NCIS Ex-smoker [facility] History of tobacco use Current smoker [facility] History of tobacco use Cigarette Smoker P [facility] Start: 10-30-2023 End: 11-24-2023 Alcohol intake Lifetime non-drinker (finding) [facility] Start: 10-30-2023 End: 12-29-2023 History of Social function [facility] Start: 10-30-2023 End: 12-29-2023 Tobacco use panel [facility] Housing Instability Unknown [facility] Start: 07-24-2023 [facility] Start: 1985 Sex Assigned At Not on file P [facility] Start: 1985 Sex Assigned At Female [facility] Start: 05-26-2023 Gender identity Identifies as female gender (finding) [facility] Start: 12-29-2023 Alcohol intake Ex-drinker (finding) [facility] Clinical Notes 11-11-2023 to 12-29-2023 Isaias Lujan MD - 12/29/2023 2:00 PM Tristan Gonzalez RN - 12/29/2023 2:00 PM ROMAN Granados - 12/23/2023 11:20 AM PATRICIA Jeffrey - 11/26/2023 3:00 PM EST Note Date & Type Note Facility 12-29-2023 History of Presen t illness Narrative [facility] Maternal- Medicine Office Visit Note HPI: [...] continue with routine care in your office [facility], the CDC, and other organizations representing maternal and public health professionals recommend that , , and lactating people and those considering receive the COVID-19 vaccination. Vaccination is the best method to reduce maternal and complications of SARS-CoV-2 infection. This document was created with [employer] technology. Though I make every effort to review the dictation as it is transcribed, on occasion the spoken word can be misinterpreted by the technology leading to inappropriate words, phrases, or sentences. This note is addressed to the requesting provider as a consultation for clinical guidance. Specific medical abbreviations are occasionally used and those are generally approved by the [place]?Board of?Obstetrics and?Gynecology?as well as?Merly s abbreviations. The above plan of care was based solely on the diagnoses for which a consultation was requested. ?More frequent testing may be indicated based on her other medical/obstetrical conditions. The management of other or medical conditions is beyond the scope of requested consultation and will continue to be followed by the primary sports intern or primary care provider. Thank you for [...] procedures Referring and communicating with other health health care assistant (not separately reported) Documenting clinical information [...] provider today? No documented in this encounter [facility] 12-23-2023 History of Presen t illness Narrative [...] of: ROMAN Valadez documented in this encounter [facility] 11-26-2023 History of Presen t illness Narrative Summary: [facility] Genetic Counseling Note Images from the original note were not included. Provider at different site/location than patient. I confirmed the patient is located in the [facility] [place]. Lenora Galaviz is currently at home and provider at remote site. The patient consented to be treated electronically via this form of telemedicine. This visit was not related to an office visit or procedure in the past 7 days, and in-office follow up is not recommended in the next 24 hours. Video Visit via Real-time Synchronous Audiovisual Provider Location: [facility] MATERNAL- MEDICINE AT [address] [address] Patient Location: Patient's home Patient Location Day Habilitation Specialist: None Video Visit Consent Statement: I [...] that there are some limitations compared to [id number] evaluations. We elected to proceed. Name: Lenora Galaviz : 1985 Date of Visit: 11/26/2023 Email: [email or web address] Preferred contact method: email Partner's Name: Mohit Age: 45 Requesting Physician: Lucia Toth MD [address] [place] [address] Reason for Referral: Lenora Galaviz is a 38 y.o. female who presented to [facility] Telemedicine Clinic. Lenora is here at the [...] - negative Performing lab: [facility] Test type: Roll Repairer Screen without X-linked Disorders (CF and [...] slight increased risk of new gene mutations. ([place] [employer] Statement on Guidance [...] greater than ~5 Mb. Karyotype can also machine operator hop picker mosaicism potentially as low as ~10%. [...] (rarechromo.org) I personally spent 30 minutes in [id number] time with this patient. I provided genetic [...] call or email their genetic counselor at [phone] or [email or web address] if any additional questions or concerns should arise. PATRICIA Grant Licensed, Certified Genetic Counselor documented in this encounter [facility] 11-11-2023 Miscellaneous Notes Attempted to call patient regarding carrier results. No answer, left VM to call back. documented in this encounter [facility] 11-11-2023 Telephone encounter Note Attempted to call patient regarding carrier results. No answer, left VM to call back. 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, antepartum [facility]* Diagnosis Third trimester state, incidental Diabetes mellitus screening Screening for diabetes mellitus documented in this encounter [facility] HealthcareEvaluation note* Diagnosis Multigravida of advanced maternal age in second trimester- Primary Abnormal genetic test during Circumvallate placenta in second trimester Thyroid disease affecting 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, antepartum 24 weeks gestation of documented in this encounter [facility] SystemInstructionsNot on filedocumented in this encounter [facility]Not on filedocumented in this encounter [facility] SystemInstructionsNot on filedocumented in this encounter [facility] SystemInstructionsNot on filedocumented in this encounter [facility] (narrative)* Consultation (Routine) - Pending Review Specialty Diagnoses / Procedures Referred By Juanita tello Referred To Contact Maternal and Medicine Diagnoses Multigravida of advanced maternal age in second trimester Abnormal genetic test during Lucia Toth MD [address] [place], [address] [place] [id number] [facility] Maternal Med [address] [place] [address] Referral ID Status Reason Start Date Expiration Date Visits Requested Visits Authorized [id number] Pending Review Specialty Services Required 3 11/03/2024 1 1 [facility] N[facility]* Consultation (Routine) - Pending Review Specialty Diagnoses / Procedures Referred By Contenma tello Referred To Contact Maternal and Medicine Diagnoses Multigravida of advanced maternal age in second trimester Abnormal genetic test during Lucia Toth MD [address] [place], [address] [place] [id number] [facility] Maternal Med [address] [place] [address] Referral ID Status Reason Start Date Expiration Date Visits Requested Visits Authorized [id number] Pending Review Specialty Services Required 3 11/03/2024 1 1 [facility] Summary Purpose Family History No Family History Records FoundNo Family History Records FoundNo Family History Records FoundNo Family History Records Found Advance Directives No Advanced Directives Records FoundNo Advanced Directives Records FoundNo Advanced Directives Records FoundNo Advanced Directives Records Found Additional Source Comments INFORMATION SOURCE (unrecogn ized section and content) DATE CREATED AUTHOR 01/17/2023 [facility] DATE CREATED AUTHOR AUTHOR'S ORGANIZ ATION 12/04/2023 [facility] DATE CREATED AUTHOR AUTHOR'S ORGANIZ ATION 01/06/2024 [facility] DATE CREATED AUTHOR AUTHOR'S ORGANIZ ATION 03/31/2024 [facility] d[facility] Specialists EPIC Reason for Visit (unrecogniz ed section and content) Reason Comments Routine Visit Reason Comments Marginal Insertion of Umbilical Cord Advanced Maternal Age Circumvallate Placenta Care Teams (unrecognized sec tion and content) [employer] Press Operator Relationship Specialty Start Date End Date No Pcp, [place] [address] PCP - General Family Medicine 12/01/23 FOR [...] PRIMARY CLINICAL RECORDS. [facility] [employer] [facility]. provides no warranty or guarantee of the accuracy or completeness of information in this document.
[2024-04-05 07:37] VITALS: TEMP 35.8
[2024-04-05 07:38] VITALS: BP 105/64; PULSE 86
--- NOTE | 2024-04-05 09:46 | US_ITS ---
[address] [address] Patient Name: YULIANA FLORES MRN: [facility]:[id number] date: 1985 Sex: F Assigned Patient Location: [facility] Current Patient Location: [facility] Accession/Order Number: [id number] Exam Date: 04/05/2024 09:50 Report Date: 04/05/2024 10:56 At the request of: LILIAN VELASCO Procedure: US OB BPP w non-stress EXAMINATION: US OB BPP w non-stress HISTORY: External Cephalic Version COMPARISON: Ultrasound OB biophysical 03/30/2024 TECHNIQUE: Ultrasound biophysical profile was performed in the radiology department. BREATHING MOVEMENTS: 2.0 GROSS BODY MOVEMENTS: 2.0 TONE: 2.0 QUALITATIVE AMNIOTIC FLUID VOLUME: 2.0 PRESENTATION: BREECH HEART RATE: 130.4 bpm bpm. AMNIOTIC FLUID VOLUME: 14.0 cm GESTATIONAL AGE: 38 weeks 4 days CONCLUSION: Total biophysical profile score 8.0. Electronically authenticated by: ALISHA PATEL Date: 04/05/2024 10:56
--- NOTE | 2024-04-10 11:43 | PM.ONB ---
Brief Operative Note Date of procedure: 04/05/24 Pre-op diagnosis general: breech presentation Post-op diagnosis: same as pre-op Procedure: Procedure: attempted external cephalic version Pt was placed in supine position, position confirmed by ultrasound, reactive nst prior to procedure, attempted version after location of head and spine, attempted to turn counter_clockwise, unsuccessful, hearts demonstrated heart deceleration, dt no movement and difficulty, the procedure was aborted, fhts returned to normal with reactive nst and bpp 8/8, pt was watched for several hours and discharged home to return for section Surgeon: Adolph King Condition: stable Disposition: floor
== END 2024-04-05 10:55 | disposition home or self-care (01) ==
LOC: FBC 07:01
PROVIDERS: Admitting Provider Obstetrics & Gynecology; Visit Provider Obstetrics & Gynecology
DX: O32.1XX0 Maternal care for breech presentation, not applicable or unspecified (principal); Z3A.38 38 weeks gestation of pregnancy
CPT/HCPCS: 59025; 59412; 76818; G0378; G0379

== ENCOUNTER 2024-04-06 07:55 | Outpatient (OUT) | payer BC, OTHER, SELFPAY ==
--- OUTSIDE RECORDS SUMMARY | 2024-04-02 04:21 | XMS_ITS ---
Patient Summarization (C-CDA 2.1 CCD) Created on: April 02, 2024 MARK LENORA~MARK BRIDGES : 1985 Sex: Female Author Organization Sample organization Care Team Providers Care Recycling Operations Manager Name Role Phone AKIKO ., DR [...] MAMTA Attending Unavailable KRISTA, LILIAN Attending Unavailable Encounters Encounter Date Encounter Type Care Provider Facility Start: 03-29-2024 End: 03-29-2024 ambulatory LILIAN KRISTA Not Available Start: 03-22-2024 End: 03-22-2024 ambulatory MAMTA BONI Not Available Start: 03-08-2024 End: 03-08-2024 ambulatory LILIAN KRISTA Not Available Start: 02-23-2024 End: 02-23-2024 ambulatory MAMTA BONI Not Available Start: 02-04-2024 End: 02-04-2024 ambulatory LILIAN KRISTA Not Available Start: 01-21-2024 End: 01-21-2024 ambulatory LILIAN KRISTA Not Available Start: 12-29-2023 End: 12-30-2023 ambulatory [facility] Start: 12-29-2023 End: 12-29-2023 Office outpatient visit 25 minutes Isaias Lujan MD Work Phone: Maternal- Medicine at [facility] Comment on above: Multigravida of adva nced maternal age in second trimester (Primary Dx); Abnormal genetic test during ; Circumvallate placenta in second trimester; Thyroid disease affecting ; 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, antepartum; 24 weeks gestation of Start: 12-23-2023 End: 12-23-2023 ambulatory MAMTA PLATA Not Available Start: 12-23-2023 End: 12-23-2023 flow sheet Mamta OWENS Work Phone: [facility] Comment on above: Third trimester preg lalit; Diabetes mellitus screening Start: 12-21-2023 Chart abstracting Mamta OWENS Work Phone: [facility] Start: 12-01-2023 End: 12-02-2023 ambulatory [facility] Start: 11-26-2023 End: 11-26-2023 ambulatory [facility] Start: 11-26-2023 End: 11-26-2023 Telemedicine consultation with patient Lucia Toth MD Work Phone: Maternal- Medicine at [facility] Comment on above: Abnormal genetic sadi t during (Primary Dx); Multigravida of advanced maternal age in second trimester; 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, antepartum Start: 11-24-2023 End: 11-24-2023 ambulatory LILIAN KING Not Available Start: 11-11-2023 Telephone encounter Ashley Higgins RN Mat ernal- Medicine at [facility] Start: 11-04-2023 Orders Only Radha Sy RN Materna l- Medicine at [facility] Comment on above: Multigravida of adva nced maternal age in second trimester (Primary Dx); Abnormal genetic test during Start: 10-29-2023 End: 10-31-2023 ambulatory NOT IN SYSTEM REF PROV [facility] Start: 10-27-2023 End: 10-27-2023 ambulatory MAMTA PLATA Not Available Start: 09-24-2023 End: 09-24-2023 ambulatory LILIAN KING Not Available Start: 01-06-2023 End: 01-06-[address] PRINCESS WHARTON . Facility: Medications Current Medications Medication Drug Class(es) Dates [...] morning. 30 tablet 11 09/03/2023 09/02/2024 Active Payers Date Payer Category [place]ayer [place] [id number] 2023-Present [phone] [address] [place] [address] [id number] 2023 Medicaid [id number] 2019 Unknown [id number] [id number] 2019 Unknown [id number] 1985 Unknown [id number] 2.16.840.1.659872.3.579.2.593 1985 Unknown [id number] 2.16.840.1.510354.3.579.2.1286 1985 Unknown [id number] 2.16.840.1.711141.3.579.2.1286 1987 Unknown [id number] 2.16.840.1.220766.3.579.2.1286 1987 Unknown [id number] 2.16.840.1.322057.3.579.2.1286 1987 Unknown [id number] 2.16.840.1.625449.3.579.2.1286 1987 Unknown [id number] 2.16.840.1.796961.3.579.2.1286 1987 Unknown [id number] 2.16.840.1.028733.3.579.2.1259 1987 Unknown [id number] 2.16.840.1.967200.3.579.2.1259 1987 Unknown [id number] 2.16.840.1.467234.3.579.2.1259 1987 Unknown [id number] 2.16.840.1.099062.3.579.2.1259 1987 Unknown [id number] 2.16.840.1.791289.3.579.2.1259 1987 Unknown [id number] 2.16.840.1.500649.3.579.2.1259 1987 Unknown [id number] 2.16.840.1.422364.3.579.2.1259 1987 Unknown [id number] 2.16.840.1.452540.3.579.2.1259 1987 Unknown [id number] 2.16.840.1.345002.3.579.2.1259 1987 Unknown [id number] 2.16.840.1.629487.3.579.2.1259 1959 Unknown [id number] Plan of Treatment Date Care Activity Detail Author Start: 12-29-2024 Tobacco Screening Tobacco Screening [facility] Start: 10-30-2024 Tobacco Screening Tobacco Screening [facility] Start: 02-08-2024 End: 02-08-2024 Patient encounter procedure 02/08/2024 9:00 AM EDT Office Visit [facility] [address] [place] [place] [id number] Lilian King, DO [address] [place], [place] [id number] [facility] Start: 01-21-2024 End: 01-21-2024 Patient encounter procedure 01/21/2024 9:40 AM EDT Routine [facility] [address] [place] [phone] Lilian King, DO [address] [place] [address] [facility] Start: 12-23-2023 End: 12-23-2024 CBC panel - Blood by Automated count CBC Lab Routine Diabetes mellitus screening Expected: 12/23/2023 (Approximate), Expires: 12/23/2024 [facility] Work Phone: Comment on above: Expected: 12/23/2023 [...] AM EST Routine [facility] [address] [place] [address] Mamta Plata PA [address] [place] [address] Third trimester [facility] Comment on above: Third trimester preg lalit Start: 12-03-2023 End: 12-03-2023 Patient encounter procedure 12/03/2023 11:00 AM EST Appointment [facility] [address] [place] [address] [facility] Start: 12-01-2023 End: 12-01-2023 Patient encounter procedure 12/01/2023 1:30 PM EST Appointment [facility] [address] [place] [phone] [facility] Start: 11-26-2023 End: 11-26-2023 Telemedicine consultation with patient 11/26/2023 3:00 PM EST Telemedicine Maternal- Medicine at [facility] [address] [place] [phone] Lucia Toth MD [address] [place], [address] [place] [address] Nataly Koo [facility] [address] [place] [address] M[facility]- Medicine at [facility] Start: 07-10-2023 Influenza vaccination Influenza Vacc ine [facility] Start: 2008 Screening for malign ant neoplasm of cervix Pap Smear [facility] Start: 2005 Adult BMI Screening Adult BMI Screen ing [facility] Start: 1999 Depression Screening Depression Scre ening [facility] Start: 1998 DTaP,Tdap and Td Vaccines (5 - Tdap) DTaP,Tdap and Td Vaccines (5 - Tdap) [facility] Problems Problem Classification Problem Date Documented Date [...] (1 source) Advanced Maternal Age Onset: 12-29-2023 Procedures Date Procedure Procedure Detail Performing Clinician Start: 12-23-2023 Urnls dip stick/tabl et rgnt non-auto w/o micrscp Mamta OWENS Work Phone: Results Test Name Value Interpretation Reference Range Facility Urinalysis macro (dipstick) panel (U)on 12-23-2023 Bilirubin, UA Negative Negative - 4(70) +++ mg/dL [facility] Blood, UA Negative Negative - 50 Ari/mcL [facility] Clarity, UA Clear [facility] re Color, UA Yellow [facility] Healthcar e Glucose, UA Negative Negative - 1999(110) ++++ mg/dL [facility] Interpretation and review of laboratory results Normal [facility] Ketones, UA Negative Negative - 160(16) ++++ mg/dL [facility] Leukocytes, UA Negative Negative - 500+++ Panchito/mcL [facility] Nitrite, UA Negative Negative - Positive [facility] pH, UA 7.5 5 - 9 [facility] Healthcar e Protein, UA Negative Negative - 1999(20) ++++ mg/dL [facility] Spec Grav, UA 1.015 1 - 1.03 [facility] Urobilinogen, UA 0.2 0.2 - 12 mg/dL [facility] FREE T3on 10-29-2023 Free T3 [Mass/Vol] 2.72 pg/mL Normal 2.50-3.90 [facility] Comment on above: Performed By: #### 3 051-0, THYR #### [facility] ([id number]) [address] [place] [address], [address] [place] [address] THYROID PROFILEon 10-29-2023 Free T4 [Mass/Vol] 0.85 ng/dL Normal 0.61-1.60 [facility] Comment on above: Performed By: #### 3 051-0, THYR #### [facility] ([id number]) [address] [place] [address], [address] [place] [address] TSH 0.18 uIU/mL Low 0.49-4.67 [facility] Comment on above: Performed By: #### 3 051-0, THYR #### [facility] ([id number]) [address] [facility], [address] [place] [address] Thyroid stimulating immunogl obulins Qn (S)on 10-29-2023 TSI See Below Normal [facility] Comment on above: Result Comment: NOTE [...] is required. Test Performed By: [facility] [address] [place] [address] Political Organizer: Jose Enrique Samuel III, M.D. [place] #[id number] Performed By: #### 3 051-0, THYR #### [facility] ([id number]) [address], [address] [address] PAP ACOG PANEL 1: 30 to 65on 01-15-2023 . . Normal [facility] Comment on above: Result Comment: Perf ormed at: WB Performed By: #### 4 [id number] #### [facility] [address] [place] [address] Dr. Ata Rao Age Gdln ACOG Testing 30-65 [facility] Comment on above: Performed By: #### 4 [id number] #### [facility] [address] [place] [address] Dr. Ata Rao DIAGNOSIS: Comment [facility] Comment on above: Result Comment: NEGA TIVE FOR INTRAEPITHELIAL LESION OR MALIGNANCY. CELLULAR CHANGES ASSOCIATED WITH INFLAMMATION ARE PRESENT. THIS SPECIMEN WAS RESCREENED PART OF OUR TESTING DIRECTOR PROGRAM. Performed at: WB Performed By: #### 4 [id number] #### [facility] [address] [place] [address] Dr. Ata Rao HPV Aptima Negative Normal Negative [facility] Comment on above: Result Comment: This nucleic acid amplification test detects fourteen high-risk HPV types (16,18,31,33,35,39,45,51,52,56,58,59,66,68) without differentiation. Performed at: =G Performed By: #### 4 [id number] #### [facility] [address] [place] [address] Dr. Ata Rao HPV Genotype Reflex Comment Normal [facility] Comment on above: Result Comment: Crit eria not met, HPV Genotype not performed. Performed at: WB Performed By: #### 4 [id number] #### [facility] [address] [place] [address] Dr. Ata Rao Methodology: Comment Normal [facility] Comment on above: Result Comment: This liquid based ThinPrep(R) pap test was screened with the use of an image guided system. Performed at: WB Performed By: #### 4 [id number] #### [facility] [address] [place] [address] Dr. Ata Rao Note: Comment Normal [facility] Comment on above: Result Comment: The Pap smear is a screening test designed to aid in the detection of premalignant and malignant conditions of the uterine cervix. It is not a diagnostic procedure and should not be used as the sole means of detecting cervical cancer. Both false-positive and false-negative reports do occur. . Performed at: WB Performed By: #### 4 [id number] #### [facility] [address] [place] [address] Dr. Ata Rao Performed by: Comment Normal [facility] Comment on above: Result Comment: Matt Tang, Agricultural Science Professor (ASCP) Performed at: WB Performed By: #### 4 [id number] #### [facility] [address] [address] [address] Ata Rao QC reviewed by: Comment Normal [facility] Comment on above: Result Comment: Jeanette Zhang, Supervisory Agricultural Science Professor (ASCP) Performed at: WB Performed By: #### 4 [id number] #### [facility] [address] [address] [address] Ata Rao Specimen adequacy: Comment Normal [facility] Comment on above: Result Comment: Sati sfactory for evaluation. Endocervical and/or squamous metaplastic cells (endocervical component) are present. Performed at: WB Performed By: #### 4 [id number] #### [facility] [address] [address] [address] Ata Rao Social History Date Type Detail Facility Start: 12-29-2023 Alcohol intake Ex-drinker (finding) [facility] Start: 10-30-2023 End: 11-24-2023 Alcohol intake Lifetime non-drinker (finding) [facility] Start: 10-30-2023 End: 12-29-2023 History of Social function [facility] Start: 10-30-2023 End: 12-29-2023 Tobacco use panel [facility] Start: 05-24-2023 End: 10-26-2023 Tobacco smoking status NHIS Ex-smoker [facility] Start: 07-24-2023 [facility] Start: 05-26-2023 Gender identity Identifies as female gender (finding) [facility] Start: 1985 Sex Assigned At Not on file P [facility] Start: 1985 Sex Assigned At Female [facility] History of tobacco use Current smoker [facility] History of tobacco use Cigarette Smoker P [facility] Housing Instability Unknown [facility] Vital Signs Date Time Vital Sign Value Performing Clinician Faci lity 12-29-2023 13:10-0500 Body height 163.8 cm Isaias Lujan MD Work Phone: [facility] 12-29-2023 13:10-0500 Body mass index (BMI) [Ratio] 21.26 kg/m2 Isaias Lujan MD Work Phone: [facility] 12-29-2023 13:10-0500 Body weight 57.06 kg Isaias Lujan MD Work Phone: [facility] 12-29-2023 13:10-0500 Diastolic blood pressure 54 mm[Hg] Isaias Lujan MD Work Phone: [facility] 12-29-2023 13:10-0500 Heart rate 82 /min Isaias Lujan MD Work Phone: [facility] 12-29-2023 13:10-0500 Systolic blood pressure 112 mm[Hg] Isaias Lujan MD Work Phone: [facility] 12-23-2023 11:32-0500 Body mass index (BMI) [Ratio] 21.46 kg/m2 Mamta OWENS Work Phone: [facility] 12-23-2023 11:32-0500 Body weight 56.7 kg Mamta OWENS Work Phone: [facility] 12-23-2023 11:32-0500 Diastolic blood pressure 68 mm[Hg] Mamta OWENS Work Phone: [facility] 12-23-2023 11:32-0500 Systolic blood pressure 104 mm[Hg] Mamta OWENS Work Phone: [facility] Clinical Notes 11-11-2023 to 12-29-2023 Isaias Lujan MD - 12/29/2023 2:00 PM Tristan Gonzalez RN - 12/29/2023 2:00 PM ROMAN Granados - 12/23/2023 11:20 AM PATRICIA Jeffrey - 11/26/2023 3:00 PM EST Note Date & Type Note Facility 12-29-2023 History of Presen t illness Narrative [facility] Office Visit Note HPI: Lenora [...] your office [facility], the CDC, and other organizations representing maternal and public health professionals recommend that , , and lactating people and those considering receive the COVID-19 vaccination. Vaccination is the best method to reduce maternal and complications of SARS-CoV-2 infection. This document was created with Slide technology. Though I make every effort to [...] continue to be followed by the primary nurse liaison or primary care provider. Thank you for [...] and communicating with other health child care education coordinator (not separately reported) Documenting clinical information in [...] provider today? No documented in this encounter [facility] [employer] 12-23-2023 History of Presen t illness Narrative [...] of: ROMAN Valadez documented in this encounter [facility] 11-26-2023 History of Presen t illness Narrative Summary: [facility] Genetic Counseling Note Images from the original note were not included. Provider at different site/location than patient. I confirmed the patient is located in the [facility]. Lenora Galaviz is currently at home and provider at remote site. The patient consented to be treated electronically via this form of telemedicine. This visit was not related to an office visit or procedure in the past 7 days, and in-office follow up is not recommended in the next 24 hours. Video Visit via Real-time Synchronous Audiovisual Provider Location: [facility]- MEDICINE AT [address] [address] Patient Location: Patient's home Patient Location Building Estimator: None Video Visit Consent Statement: I discussed [...] that there are some limitations compared to jwpf-ce-baju evaluations. We elected to proceed. Name: Lenora Galaviz : 1985 Date of Visit: 11/26/2023 Email: [email or web address] Preferred contact method: email Partner's Name: Mohit Age: 45 Requesting Physician: Lucia Toth MD [facility], [address] [place], [place] [id number] Reason for Referral: Lenora Galaviz is a 38 y.o. female who presented to [facility] Telemedicine Clinic. Lenora is here at [...] - negative Performing lab: [facility] Test type: Relay Mechanic Screen without X-linked Disorders (CF and SMA) [...] greater than ~5 Mb. Karyotype can also product picker mosaicism potentially as low as ~10%. [...] ([email or web address].org) I personally spent 30 minutes in nyfd-op-cbpg time with this patient. I provided genetic [...] call or email their genetic counselor at [phone] or [email or web address] if any additional questions or concerns should arise. PATRICIA Grant Licensed, Certified Genetic Counselor documented in this encounter [facility] 11-11-2023 Miscellaneous Notes Attempted to call patient regarding carrier results. No answer, left VM to call back. documented in this encounter [facility] 11-11-2023 Telephone encounter Note Attempted to call patient regarding carrier results. No answer, left VM to call back. 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, antepartum [facility] Diagnosis Third trimester state, incidental Diabetes mellitus screening Screening for diabetes mellitus documented in this encounter [facility] HealthcareEvaluation note* Diagnosis Multigravida of advanced maternal age in second trimester- Primary Abnormal genetic test during Circumvallate placenta in second trimester Thyroid disease affecting 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, antepartum 24 weeks gestation of documented in this encounter [facility] filedocumented in this encounter [facility] [place] [facility] on filedocumented in this encounter [facility] [place] [facility] on filedocumented in this encounter [facility]Not on filedocumented in this encounter [facility] Consultation (Routine) - Pending Review Specialty Diagnoses / Procedures Referred By Juanita tello Referred To Contact Maternal and Medicine Diagnoses Multigravida of advanced maternal age in second trimester Abnormal genetic test during Lucia Toth MD [address] [place], [address] [place] [address] [facility] [address] [place] [address] Referral ID Status Reason Start Date Expiration Date Visits Requested Visits Authorized [id number] Pending Review Specialty Services Required 3 11/03/2024 1 1 [facility] for visit Narrative* Consultation (Routine) - Pending Review Specialty Diagnoses / Procedures Referred By Contenma tello Referred To Contact Maternal and Medicine Diagnoses Multigravida of advanced maternal age in second trimester Abnormal genetic test during Lucia Toth MD [address] [place], [address] [place] [address] [facility] [address] [place] [address] Referral ID Status Reason Start Date Expiration Date Visits Requested Visits Authorized [id number] Pending Review Specialty Services Required 3 11/03/2024 1 1 [facility] Summary Purpose Family History No Family History Records FoundNo Family History Records FoundNo Family History Records FoundNo Family History Records Found Advance Directives No Advanced Directives Records FoundNo Advanced Directives Records FoundNo Advanced Directives Records FoundNo Advanced Directives Records Found Additional Source Comments INFORMATION SOURCE (unrecogn ized section and content) DATE CREATED AUTHOR 01/17/2023 [facility] DATE CREATED AUTHOR AUTHOR'S ORGANIZ ATION 12/04/2023 [facility] DATE CREATED AUTHOR AUTHOR'S ORGANIZ ATION 01/06/2024 [facility] DATE CREATED AUTHOR AUTHOR'S ORGANIZ ATION 03/31/2024 [facility] dical Specialists EPIC Reason for Visit (unrecogniz ed section and content) Reason Comments Routine Visit Reason Comments Marginal Insertion of Umbilical Cord Advanced Maternal Age Circumvallate Placenta Care Teams (unrecognized sec tion and content) Recycling Operations Manager Relationship Specialty Start Date End Date No Pcp, [place] [address] PCP - General Family Medicine 12/01/23 FOR [...] BE BASED ON THE PRIMARY CLINICAL RECORDS. [facility]. provides no warranty or guarantee of the accuracy or completeness of information in this document.
--- OUTSIDE RECORDS SUMMARY | 2024-04-06 08:01 | XMS_ITS | CCD ---
Author Organization [facility] Care Team Providers Care Communications Program Manager Name Role Phone AKIKO ., DR [...] LILIAN Attending Unavailable BONI, MAMTA Attending Unavailable RKISTA, LILIAN Attending Unavailable Medications Current Medications Medication [...] UA Negative Negative - 4(70) +++ mg/dL [facility] Blood, UA Negative Negative - 50 Ari/mcL [facility] Clarity, UA Clear [facility] re Color, UA Yellow [facility] Glucose, UA Negative Negative - 1999(110) ++++ mg/dL [facility] Interpretation and review of laboratory results Normal [facility] Ketones, UA Negative Negative - 160(16) ++++ mg/dL [facility] Leukocytes, UA Negative Negative - 500+++ Panchito/mcL [facility] Nitrite, UA Negative Negative - Positive [facility] pH, UA 7.5 5 - 9 [facility] Protein, UA Negative Negative - 2000(20) ++++ mg/dL [facility] Spec Grav, UA 1.015 1 - 1.03 [facility] Urobilinogen, UA 0.2 0.2 - 12 mg/dL [facility] FREE T3on 10-29-2023 Free T3 [Mass/Vol] 2.72 pg/mL Normal 2.50-3.90 [facility] Comment on above: Performed By: #### 3 051-0, THYR #### [facility] ([id number]) [address], [address] [place] [address] THYROID PROFILEon 10-29-2023 Free T4 [Mass/Vol] 0.85 ng/dL Normal 0.61-1.60 [facility] Comment on above: Performed By: #### 3 051-0, THYR #### [facility] ([id number]) [address], [address] [place] [address] TSH 0.18 uIU/mL Low 0.49-4.67 [facility] Comment on above: Performed By: #### 3 051-0, THYR #### [facility] ([id number]) [address], [address] [place] [address] Thyroid stimulating immunogl obulins Qn (S)on 10-29-2023 TSI See Below Normal [facility] Comment on above: Result Comment: NOTE [...] Clinical correlation is required. Test Performed By: [facility] [address] [place] [address] Watch And Clock Maker And Repairer: Jose Enrique Samuel III, M.D. CLIA #[id number] Performed By: #### 3 051-0, THYR #### [facility] ([id number]) [address], [address] [place] [address] PAP ACOG PANEL 1: 30 to 65on 01-15-2023 . . Normal [facility] Comment on above: Result Comment: Perf ormed at: WB Performed By: #### [id number] #### [facility] [address] [address] [address] Ata Lee Gdln ACOG Testing 30-65 Normal [facility] Comment on above: Performed By: #### 4 [id number] #### [facility] [address] [place] [address] Dr. Ata Rao DIAGNOSIS: Comment Normal [facility] Comment on above: Result Comment: NEGA TIVE FOR INTRAEPITHELIAL LESION OR MALIGNANCY. CELLULAR CHANGES ASSOCIATED WITH INFLAMMATION ARE PRESENT. THIS SPECIMEN WAS RESCREENED PART OF OUR PAPER GOODS MACHINE OPERATOR PROGRAM. Performed at: WB Performed By: #### 4 [id number] #### [facility] [address] [place] [address] Dr. Ata Rao HPV Aptima Negative Normal Negative [facility] Comment on above: Result Comment: This nucleic acid amplification test detects fourteen high-risk HPV types (16,18,31,33,35,39,45,51,52,56,58,59,66,68) without differentiation. Performed at: =G Performed By: #### 4 [id number] #### [facility] [address] [place] [address] Dr. Ata Rao HPV Genotype Reflex Comment Normal [facility] Comment on above: Result Comment: Crit eria not met, HPV Genotype not performed. Performed at: WB Performed By: #### 4 [id number] #### [facility] [address] [place] [address] Dr. Ata Rao Methodology: Comment Normal [facility] Comment on above: Result Comment: This liquid based ThinPrep(R) pap test was screened with the use of an image guided system. Performed at: WB Performed By: #### 4 [id number] #### [facility] [address] [place] [address] Dr. Ata Rao Note: Comment Normal [facility] Comment on above: Result Comment: The Pap smear is a screening test designed to aid in the detection of premalignant and malignant conditions of the uterine cervix. It is not a diagnostic procedure and should not be used as the sole means of detecting cervical cancer. Both false-positive and false-negative reports do occur. . Performed at: WB Performed By: #### 4 [id number] #### [facility] [address] [place] [address] Dr. Ata Rao Performed by: Comment Normal [facility] Comment on above: Result Comment: Matt Tang, Photogrammetric Stereo Compiler (ASCP) Performed at: WB Performed By: #### 4 [id number] #### [facility] [address] [address] [address] Ata Rao QC reviewed by: Comment Normal [facility] Comment on above: Result Comment: Jeanette Zhang, Supervisory Photogrammetric Stereo Compiler (ASCP) Performed at: WB Performed By: #### 4 [id number] #### [facility] [address] [address] [address] Ata Rao Specimen adequacy: Comment Normal [facility] Comment on above: Result Comment: Sati sfactory for evaluation. Endocervical and/or squamous metaplastic cells (endocervical component) are present. Performed at: WB Performed By: #### 4 [id number] #### [facility] [address] [place] [address] Dr. Ata Rao Vital Signs Date Time Vital Sign Value Performing Clinician Hannah osman 12-29-2023 13:10-0500 Body height 163.8 cm Isaias Lujan MD Work Phone: [facility] 12-29-2023 13:10-0500 Body mass index (BMI) [Ratio] 21.26 kg/m2 Isaias Lujan MD Work Phone: [facility] 12-29-2023 13:10-0500 Body weight 57.06 kg Isaias Lujan MD Work Phone: [facility] 12-29-2023 13:10-0500 Diastolic blood pressure 54 mm[Hg] Isaias Lujan MD Work Phone: [facility] 12-29-2023 13:10-0500 Heart rate 82 /min Isaias Lujan MD Work Phone: [facility] 12-29-2023 13:10-0500 Systolic blood pressure 112 mm[Hg] Isaias Lujan MD Work Phone: [facility] 12-23-2023 11:32-0500 Body mass index (BMI) [Ratio] 21.46 kg/m2 Mamta OWENS Work Phone: [facility] 12-23-2023 11:32-0500 Body weight 56.7 kg Mamta OWENS Work Phone: [facility] 12-23-2023 11:32-0500 Diastolic blood pressure 68 mm[Hg] Mamta OWENS Work Phone: [facility] 12-23-2023 11:32-0500 Systolic blood pressure 104 mm[Hg] Mamta OWENS Work Phone: [facility] Encounters Encounter Date Encounter Type [...] Not Available Start: 12-29-2023 End: 12-30-2023 ambulatory [facility] Start: 12-29-2023 End: 12-29-2023 Office outpatient visit 25 minutes Isaias Lujan MD Work Phone: [facility] Comment on above: Multigravida of adva nced maternal age in second trimester (Primary Dx); Abnormal genetic test during ; Circumvallate placenta in second trimester; Thyroid disease affecting ; 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, antepartum; 24 weeks gestation of Start: 12-23-2023 End: 12-23-2023 ambulatory MAMTA PLATA Not Available Start: 12-23-2023 End: 12-23-2023 flow sheet Mamta OWENS Work Phone: [facility] Comment on above: Third trimester preg lalit; Diabetes mellitus screening Start: 12-21-2023 Chart abstracting Mamta OWENS Work Phone: [facility] Start: 12-01-2023 End: 12-02-2023 ambulatory [facility] Start: 11-26-2023 End: 11-26-2023 ambulatory [facility] Start: 11-26-2023 End: 11-26-2023 Telemedicine consultation with patient Evnedra Mati Toth MD Work Phone: [facility] Comment on above: Abnormal genetic sadi t during (Primary Dx); Multigravida of advanced maternal age in second trimester; 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, antepartum Start: 11-24-2023 End: 11-24-2023 ambulatory LILIAN KING Not Available Start: 11-11-2023 Telephone encounter Ashley Higgins RN Mat ernal- Medicine at [facility] Start: 11-04-2023 Orders Only Radha Sy RN Materna l- Medicine at [facility] Comment on above: Multigravida of adva nced maternal age in second trimester (Primary Dx); Abnormal genetic test during Start: 10-29-2023 End: 10-31-2023 ambulatory NOT IN SYSTEM REF PROV [facility] Start: 10-27-2023 End: 10-27-2023 ambulatory MATMA PLATA Not Available Start: 09-24-2023 End: 09-24-2023 ambulatory LILIAN KING Not Available Start: 01-06-2023 End: 01-06-[address] PRINCESS WHARTON . Facility: Procedures Date Procedure Procedure Detail Performing Clinician Start: 12-23-2023 Urnls dip stick/tabl et rgnt non-auto w/o micrscp Mamta OWENS Work Phone: Plan of Treatment Date Care Activity Detail Author Start: 12-29-2024 Tobacco Screening Tobacco Screening [facility] Start: 10-30-2024 Tobacco Screening Tobacco Screening [facility] Start: 02-08-2024 End: 02-08-2024 Patient encounter procedure 02/08/2024 9:00 AM EDT Office Visit [facility] [address] [facility] [phone] Lilian King, DO [address] [place] [address] [facility] Start: 01-21-2024 End: 01-21-2024 Patient encounter procedure 01/21/2024 9:40 AM EDT Routine [facility] [address] [facility] [place] [id number] Lilian King, DO [address] [place] [address] [facility] Start: 12-23-2023 End: 12-23-2024 CBC panel - Blood by Automated count CBC Lab Routine Diabetes mellitus screening Expected: 12/23/2023 (Approximate), Expires: 12/23/2024 [facility] Work Phone: Comment on above: Expected: 12/23/2023 (Approximate), Expires: 12/23/2024 Start: 12-23-2023 End: 12-23-2024 Measurement of glucose 1 hour after glucose challenge for glucose tolerance test Glucose tolerance, 1 hour Lab Routine Diabetes mellitus screening Expected: 12/23/2023 (Approximate), Expires: 12/23/2024 [facility] Comment on above: Expected: 12/23/2023 (Approximate), Expires: 12/23/2024 Start: 12-23-2023 End: 12-23-2023 Patient encounter procedure 12/23/2023 11:20 AM EST Routine [facility] [address] [facility] [place] [phone] Mamta Plata PA [address] [place], [place] [id number] Third trimester [facility] Comment on above: Third trimester preg lalit Start: 12-03-2023 End: 12-03-2023 Patient encounter procedure 12/03/2023 11:00 AM EST Appointment [facility] [address] [place] [id number] [facility] Start: 12-01-2023 End: 12-01-2023 Patient encounter procedure 12/01/2023 1:[address] [facility] [address] [place] [address] [facility] Start: 11-26-2023 End: 11-26-2023 Telemedicine consultation with patient 11/26/2023 3:00 PM EST Telemedicine [facility] [address] [facility] [place] [id number] Lucia Toth MD [address] [address] Nataly Koo, [facility] [address] [place] [address] [facility] Start: 07-10-2023 Influenza vaccination Influenza Vacc ine [facility] Start: 2008 Screening for malign ant neoplasm of cervix Pap Smear [facility] Start: 2005 Adult BMI Screening Adult BMI Screen ing [facility] Start: 1999 Depression Screening Depression Scre ening [facility] Start: 1998 DTaP,Tdap and Td Vaccines (5 - Tdap) DTaP,Tdap and Td Vaccines (5 - Tdap) [facility] Payers Date Payer Category [place]ayer [place] [id number] 2023-Present [phone] [address] [place] [address] [id number] 2023 Medicaid [id number] 2019 Unknown [id number] [id number] [id number] 2019 Unknown [id number] 1987 Unknown [id number] 2.16.840.1.217490.3.579.2.593 1987 Unknown [id number] 2.16.840.1.900716.3.579.2.1286 1987 Unknown [id number] 2.16.840.1.269567.3.579.2.1286 1987 Unknown [id number] 2.16.840.1.728328.3.579.2.1286 1987 Unknown [id number] 2.16.840.1.686051.3.579.2.6 1987 Unknown [id number] 2.16.840.1.110010.3.579.2.6 1987 Unknown [id number] 2.16.840.1.649004.3.579.2.1286 1987 Unknown [id number] 2.16.840.1.427842.3.579.2.9 1987 Unknown [id number] 2.16.840.1.076728.3.579.2.9 1987 Unknown [id number] 2.16.840.1.983347.3.579.2.9 1987 Unknown [id number] 2.16.840.1.309700.3.579.2.1259 1987 Unknown [id number] 2.16.840.1.610081.3.579.2.9 1987 Unknown [id number] 2.16.840.1.068613.3.579.2.9 1987 Unknown [id number] 2.16.840.1.317692.3.579.2.9 1987 Unknown [id number] 2.16.840.1.343462.3.579.2.1259 1987 Unknown [id number] 2.16.840.1.742677.3.579.2.1259 1987 Unknown [id number] 2.16.840.1.463504.3.579.2.1259 1959 Unknown [id number] Social History Date Type Detail Facility Start: 05-24-2023 End: 10-26-2023 Tobacco smoking status NEIS Ex-smoker [facility] History of tobacco use Current smoker [facility] History of tobacco use Cigarette Smoker P [facility] Start: 10-30-2023 End: 11-24-2023 Alcohol intake Lifetime non-drinker (finding) [facility] Start: 10-30-2023 End: 12-29-2023 History of Social function [facility] Start: 10-30-2023 End: 12-29-2023 Tobacco use panel [facility] Housing Instability Unknown [facility] Start: 07-24-2023 [facility] Start: 1985 Sex Assigned At Not on file P [facility] Start: 1985 Sex Assigned At Female [facility] Start: 05-26-2023 Gender identity Identifies as female gender (finding) [facility] Start: 12-29-2023 Alcohol intake Ex-drinker (finding) [facility] Clinical Notes 11-11-2023 to 12-29-2023 Isaias Lujan MD - 12/29/2023 2:00 PM Tristan Gonzalez RN - 12/29/2023 2:00 PM ROMAN Granados - 12/23/2023 11:20 AM PATRICIA Jeffrey - 11/26/2023 3:00 PM EST Note Date & Type Note Facility 12-29-2023 History of Presen t illness Narrative [facility] Maternal- Medicine Office Visit Note HPI: Lenora [...] with routine care in your office [facility], the CDC, and other organizations representing maternal and public health professionals recommend that , , and lactating people and those considering receive the COVID-19 vaccination. Vaccination is the best method to reduce maternal and complications of SARS-CoV-2 infection. This document was created with [employer] technology. Though I make every effort to review the dictation as it is transcribed, on occasion the spoken word can be misinterpreted by the technology leading to inappropriate words, phrases, or sentences. This note is addressed to the requesting provider as a consultation for clinical guidance. Specific medical abbreviations are occasionally used and those are generally approved by the [place]?Board of?Obstetrics and?Gynecology?as well as?Merly s abbreviations. The above plan of care was based solely on the diagnoses for which a consultation was requested. ?More frequent testing may be indicated based on her other medical/obstetrical conditions. The management of other or medical conditions is beyond the scope of requested consultation and will continue to be followed by the primary speech language pathologist assistant or primary care provider. Thank you for [...] procedures Referring and communicating with other health complex care nurse practitioner (not separately reported) Documenting clinical information in [...] provider today? No documented in this encounter [facility] 12-23-2023 History of Presen t illness [...] of: ROMAN Valadez documented in this encounter [facility] 11-26-2023 History of Presen t illness Narrative Summary: [facility] Genetic Counseling Note Images from the original note were not included. Provider at different site/location than patient. I confirmed the patient is located in the [facility]. Lenora Galaviz is currently at home and provider at remote site. The patient consented to be treated electronically via this form of telemedicine. This visit was not related to an office visit or procedure in the past 7 days, and in-office follow up is not recommended in the next 24 hours. Video Visit via Real-time Synchronous Audiovisual Provider Location: [facility] [address] [address] Patient Location: Patient's home Patient Location Head Of Housekeeping: None Video Visit Consent Statement: I discussed [...] that there are some limitations compared to [id number] evaluations. We elected to proceed. Name: Lenora Galaviz : 1985 Date of Visit: 11/26/2023 Email: [email or web address] Preferred contact method: email Partner's Name: Mohit Age: 45 Requesting Physician: Lucia Toth MD [address] [place] [address] Reason for Referral: Lenora Galaviz is a 38 y.o. female who presented to [facility] Telemedicine Clinic. Lenora is here at the [...] - negative Performing lab: [facility] Test type: Cattyman Screen without X-linked Disorders (CF and SMA) [...] slight increased risk of new gene mutations. ([place] [employer] Statement on Guidance [...] greater than ~5 Mb. Karyotype can also milk pickup truck driver mosaicism potentially as low as ~10%. Results [...] (rarechromo.org) I personally spent 30 minutes in phao-op-zogb time with this patient. I provided genetic [...] call or email their genetic counselor at [phone] or [email or web address] if any additional questions or concerns should arise. PATRICIA Grant Licensed, Certified Genetic Counselor documented in this encounter [facility] 11-11-2023 Miscellaneous Notes Attempted to call patient regarding carrier results. No answer, left VM to call back. documented in this encounter [facility] 11-11-2023 Telephone encounter Note Attempted to call patient regarding carrier results. No answer, left VM to call back. 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, antepartum documented in this encounter [facility] Diagnosis Third trimester state, incidental Diabetes mellitus screening Screening for diabetes mellitus documented in this encounter [facility]* Diagnosis Multigravida of advanced maternal age in second trimester- Primary Abnormal genetic test during Circumvallate placenta in second trimester Thyroid disease affecting 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, antepartum 24 weeks gestation of documented in this encounter [facility] System[facility]ructionsNot on filedocumented in this encounter [facility] filedocumented in this encounter [facility] on filedocumented in this encounter [facility] SystemInstructionsNot on filedocumented in this encounter [facility] (narrative)* Consultation (Routine) - Pending Review Specialty Diagnoses / Procedures Referred By Juanita tello Referred To Contact Maternal and Medicine Diagnoses Multigravida of advanced maternal age in second trimester Abnormal genetic test during Lucia Toth MD [address] [place], [address] [place] [address] [facility]aternal [facility] [address] [place] [address] Referral ID Status Reason Start Date Expiration Date Visits Requested Visits Authorized [id number] Pending Review Specialty Services Required 3 11/03/2024 1 1 [facility] N[facility]ative* Consultation (Routine) - Pending Review Specialty Diagnoses / Procedures Referred By Contenma tello Referred To Contact Maternal and Medicine Diagnoses Multigravida of advanced maternal age in second trimester Abnormal genetic test during Lucia Toth MD [address] [place], [address] [place] [address] [facility] [address] [place] [address] Referral ID Status Reason Start Date Expiration Date Visits Requested Visits Authorized [id number] Pending Review Specialty Services Required 3 11/03/2024 1 1 [facility] Summary Purpose Family History No Family History Records FoundNo Family History Records FoundNo Family History Records FoundNo Family History Records Found Advance Directives No Advanced Directives Records FoundNo Advanced Directives Records FoundNo Advanced Directives Records FoundNo Advanced Directives Records Found Additional Source Comments INFORMATION SOURCE (unrecogn ized section and content) DATE CREATED AUTHOR 01/17/2023 [facility] DATE CREATED AUTHOR AUTHOR'S ORGANIZ ATION 12/04/2023 [facility] DATE CREATED AUTHOR AUTHOR'S ORGANIZ ATION 01/06/2024 [facility] DATE CREATED AUTHOR AUTHOR'S ORGANIZ ATION 03/31/2024 [facility] EPIC Reason for Visit (unrecogniz ed section and content) Reason Comments Routine Visit Reason Comments Marginal Insertion of Umbilical Cord Advanced Maternal Age Circumvallate Placenta Care Teams (unrecognized sec tion and content) Communications Program Manager Relationship Specialty Start Date End Date No Pcp, [place] [address] PCP - General Family Medicine 12/01/23 FOR [...] BE BASED ON THE PRIMARY CLINICAL RECORDS. [facility] [employer] [facility]. provides no warranty or guarantee of the accuracy or completeness of information in this document.
--- NOTE | 2024-04-06 19:01 | US_ITS ---
[address] [address] Patient Name: YULIANA FLORES MRN: [facility]:[id number] date: 1985 Sex: F Assigned Patient Location: [place] Current Patient Location: [facility] Accession/Order Number: [id number] Exam Date: 04/06/2024 19:09 Report Date: 04/07/2024 07:09 At the request of: LILIAN VELASCO Procedure: US OB BPP w non-stress EXAMINATION: US OB BPP w non-stress HISTORY: MULTIGRAVIDA OF ADVANCED MATERNAL AGE O09.523 COMPARISON: No relevant comparison available. TECHNIQUE: Ultrasound biophysical profile was performed in the radiology department. non-reactive stress testing was performed by nursing staff in the birthing center. FINDINGS: BREATHING MOVEMENTS: 2.0 GROSS BODY MOVEMENTS: 2.0 TONE: 2.0 QUALITATIVE AMNIOTIC FLUID VOLUME: 2.0 PRESENTATION: BREECH HEART RATE: 120.5 bpm H.B./min AMNIOTIC FLUID VOLUME: 13.1 cm cm GESTATIONAL AGE: 38 weeks 5 days CONCLUSION: Total biophysical profile score: 8.0 Electronically authenticated by: KIYA FARMER Date: 04/07/2024 07:09
--- NOTE | 2024-04-06 19:03 | US_ITS ---
[address] [address] Patient Name: YULIANA FLORES MRN: [id number] date: 1985 Sex: F Assigned Patient Location: US Current Patient Location: Accession/Order Number: [id number] Exam Date: 04/06/2024 19:09 Report Date: 04/07/2024 07:11 At the request of: LILIAN VELASCO Procedure: US OB growth EXAMINATION: US OB growth HISTORY: MULTIGRAVIDA OF ADVANCED MATERNAL AGE O09.522 COMPARISON: No relevant comparison available. FINDINGS: Heart Rate: 120.5 bpm Amniotic Fluid Volume: 13.1 cm Number: 1.0 Position: Breech presentation, longitudinal lie Maximum Vertical Pocket: 3.9 cm cm 1.8 cm cm 3.5 cm cm 3.8 cm cm BIOMETRY: BPD: 8.7 cm cm; 35 weeks 0 days; <3% HC: 33.2 cmcm; 37 weeks 6 days , 17% AC: 32.8 cm cm; 36 weeks 5 days, 18% FL: 6.7 cm cm; 34 weeks 5 days; <3.0 % % EFW: 2856.2 grams, 6 lbs. 5 oz., 11% FL/AC: 20.5 FL/BPD: 77.7 HC/AC: 1.0 GESTATIONAL AGE: Age by EDC: 38 weeks 5 days IRMA by EDC: 04/15/2024 Age by US: 36 weeks 1 day IRMA by US: 05/03/2024 US/US OB growth IMPRESSION: Normal interval growth Electronically authenticated by: KIYA FARMER Date: 04/07/2024 07:11
[2024-04-06 19:49] VITALS: BP 115/69; PULSE 77
== END 2024-04-06 20:37 | disposition home or self-care (01) ==
LOC: US 07:55 → FBC 18:59
PROVIDERS: Visit Provider Obstetrics & Gynecology
DX: O09.523 Supervision of elderly multigravida, third trimester (principal); Z3A.36 36 weeks gestation of pregnancy
CPT/HCPCS: 76816; 76818

== ENCOUNTER 2024-04-11 05:28 | Inpatient (IN) | payer BC, OTHER, SELFPAY ==
[2024-04-11] VITALS (35 sets, daily range): BP systolic 87–111; BP diastolic 55–82; PULSE 60–80; TEMP 36.1–37.1; O2SAT 97–100
--- OUTSIDE RECORDS SUMMARY | 2024-04-11 05:32 | XMS_ITS | CCD ---
Author Organization [facility] Care Team Providers Care Clinical Nursing Assistant Name Role Phone AKIKO ., DR SÁNCHEZ [...] LILIAN Attending Unavailable KRISTA, LILIAN Attending Unavailable Medications [...] UA Negative Negative - 4(70) +++ mg/dL [facility] Blood, UA Negative Negative - 50 Ari/mcL [facility] Clarity, UA Clear [facility] re Color, UA Yellow [facility] Glucose, UA Negative Negative - 1999(110) ++++ mg/dL [facility] Interpretation and review of laboratory results Normal [facility] Ketones, UA Negative Negative - 160(16) ++++ mg/dL [facility] Leukocytes, UA Negative Negative - 500+++ Panchito/mcL [facility] Nitrite, UA Negative Negative - Positive [facility] pH, UA 7.5 5 - 9 [facility] Protein, UA Negative Negative - 1999(20) ++++ mg/dL [facility] Spec Grav, UA 1.015 1 - 1.03 [facility] Urobilinogen, UA 0.2 0.2 - 12 mg/dL [facility] FREE T3on 10-29-2023 Free T3 [Mass/Vol] 2.72 pg/mL Normal 2.50-3.90 [facility] Comment on above: Performed By: #### 3 051-0, THYR #### [facility] ([id number]) [address] [facility] [facility], [address] [place] [address] THYROID PROFILEon 10-29-2023 Free T4 [Mass/Vol] 0.85 ng/dL Normal 0.61-1.60 [facility] Comment on above: Performed By: #### 3 051-0, THYR #### [facility] ([id number]) [address] [facility] [facility] [facility] [place] [address] TSH 0.18 uIU/mL Low 0.49-4.67 [facility] Comment on above: Performed By: #### 3 051-0, THYR #### [facility] ([id number]) [address] [facility], [address] [place] [address] Thyroid stimulating immunogl obulins Qn (S)on 10-29-2023 TSI See Below Normal [facility] Comment on above: Result Comment: NOTE [...] Clinical correlation is required. Test Performed By: [facility] [address] [place] [address] Insurance Billing Specialist: Jose Enrique Samuel III, M.D. CLIA #[id number] Performed By: #### 3 051-0, THYR #### [facility] ([id number]) [address] [facility] [facility] [place] [address] PAP ACOG PANEL 1: 30 to 65on 01-15-2023 . . Normal [facility] Comment on above: Result Comment: Perf ormed at: WB Performed By: #### 4 [id number] #### [facility] [address] [place] [address] Dr. Ata Rao Age Gdln ACOG Testing 30-65 Normal [facility] Comment on above: Performed By: #### 4 [id number] #### [facility] [address] [place] [address] Dr. Ata Rao DIAGNOSIS: Comment Normal [facility] Comment on above: Result Comment: NEGA TIVE FOR INTRAEPITHELIAL LESION OR MALIGNANCY. CELLULAR CHANGES ASSOCIATED WITH INFLAMMATION ARE PRESENT. THIS SPECIMEN WAS RESCREENED PART OF OUR SUPERVISOR METAL CANS PROGRAM. Performed at: WB Performed By: #### 4 [id number] #### [facility] [address] [place] [address] Dr. Ata Rao HPV Aptima Negative Normal Negative [facility] Comment on above: Result Comment: This nucleic acid amplification test detects fourteen high-risk HPV types (16,18,31,33,35,39,45,51,52,56,58,59,66,68) without differentiation. Performed at: =G Performed By: #### 4 [id number] #### [facility] [address] [place] [address] Dr. Ata Rao HPV Genotype Reflex Comment Normal [facility] Comment on above: Result Comment: Crit eria not met, HPV Genotype not performed. Performed at: WB Performed By: #### 4 [id number] #### [facility] [address] [place] [address] Dr. Ata Rao Methodology: Comment Normal [facility] Comment on above: Result Comment: This liquid based ThinPrep(R) pap test was screened with the use of an image guided system. Performed at: WB Performed By: #### 4 [id number] #### [facility] [address] [place] [address] Dr. Ata Rao Note: Comment Normal [facility] Comment on above: Result Comment: The Pap smear is a screening test designed to aid in the detection of premalignant and malignant conditions of the uterine cervix. It is not a diagnostic procedure and should not be used as the sole means of detecting cervical cancer. Both false-positive and false-negative reports do occur. . Performed at: WB Performed By: #### 4 [id number] #### [facility] [address] [place] [address] Dr. Ata Rao Performed by: Comment Normal [facility] Comment on above: Result Comment: Gutierrez n Tang, Seed And Fertilizer Specialist (ASCP) Performed at: WB Performed By: #### 4 [id number] #### [facility] [address] [address] [address] Ata Rao QC reviewed by: Comment Normal [place] Comment on above: Result Comment: Jeanette Zhang, Supervisory Seed And Fertilizer Specialist (ASCP) Performed at: WB Performed By: #### 4 [id number] #### [facility] [address] [address] [address] Ata Rao Specimen adequacy: Comment Normal [facility] Comment on above: Result Comment: Sati sfactory for evaluation. Endocervical and/or squamous metaplastic cells (endocervical component) are present. Performed at: WB Performed By: #### 4 [id number] #### [facility] [address] [place] [address] Dr. Ata Rao Vital Signs Date Time Vital Sign Value Performing Clinician Hannah osman 12-29-2023 13:10-0500 Body height 163.8 cm Isaias Lujan MD Work Phone: [facility] 12-29-2023 13:10-0500 Body mass index (BMI) [Ratio] 21.26 kg/m2 Isaias Lujan MD Work Phone: [facility] 12-29-2023 13:10-0500 Body weight 57.06 kg Isaias Lujan MD Work Phone: [facility] 12-29-2023 13:10-0500 Diastolic blood pressure 54 mm[Hg] Isaias Lujan MD Work Phone: [facility] 12-29-2023 13:10-0500 Heart rate 82 /min Isaias Lujan MD Work Phone: [facility] 12-29-2023 13:10-0500 Systolic blood pressure 112 mm[Hg] Isaias Lujan MD Work Phone: [facility] 12-23-2023 11:32-0500 Body mass index (BMI) [Ratio] 21.46 kg/m2 Mamta OWENS Work Phone: [facility] 12-23-2023 11:32-0500 Body weight 56.7 kg Mamta OWENS Work Phone: [facility] 12-23-2023 11:32-0500 Diastolic blood pressure 68 mm[Hg] Mamta OWENS Work Phone: [facility] 12-23-2023 11:32-0500 Systolic blood pressure 104 mm[Hg] Mamta OWENS Work Phone: [facility] Encounters Encounter Date Encounter Type Care Provider Facility Start: 04-06-2024 End: 04-06-2024 ambulatory LILIAN KRISTA Not Available Start: 03-29-2024 End: 03-29-2024 ambulatory LILIAN KRISTA Not Available Start: 03-22-2024 End: 03-22-2024 ambulatory MAMTA BONI Not Available Start: 03-08-2024 End: 03-08-2024 ambulatory LILIAN KRISTA Not Available Start: 02-23-2024 End: 02-23-2024 ambulatory MAMTA BONI Not Available Start: 02-04-2024 End: 02-04-2024 ambulatory LILIAN KRISTA Not Available Start: 01-21-2024 End: 01-21-2024 ambulatory LILIAN KRISTA Not Available Start: 12-29-2023 End: 12-30-2023 ambulatory [facility] Start: 12-29-2023 End: 12-29-2023 Office outpatient visit 25 minutes Isaias Lujan MD Work Phone: [facility] Comment on above: Multigravida of adva [...] 12-21-2023 Chart abstracting Mamta OWENS Work Phone: [facility] Start: 12-01-2023 End: 12-02-2023 ambulatory [facility] Start: 11-26-2023 End: 11-26-2023 ambulatory [facility] Start: 11-26-2023 End: 11-26-2023 Telemedicine consultation with patient Danteyesenia Mati Toth MD Work Phone: [facility] Comment on above: Abnormal genetic sadi t during (Primary Dx); Multigravida of advanced maternal age in second trimester; 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, antepartum Start: 11-24-2023 End: 11-24-2023 ambulatory LILIAN KING Not Available Start: 11-11-2023 Telephone encounter Ashley Higgins RN Mat ernal- Medicine at [facility] Start: 11-04-2023 Orders Only Radha Sy RN Materna l- Medicine at [facility] Comment on above: Multigravida of adva nced maternal age in second trimester (Primary Dx); Abnormal genetic test during Start: 10-29-2023 End: 10-31-2023 ambulatory NOT IN SYSTEM REF PROV [facility] Start: 10-27-2023 End: 10-27-2023 ambulatory MAMTA [...] Author Start: 12-29-2024 Tobacco Screening Tobacco Screening [facility] Start: 10-30-2024 Tobacco Screening Tobacco Screening [facility] Start: 02-08-2024 End: 02-08-2024 Patient encounter procedure 02/08/2024 9:00 AM EDT Office Visit [facility] [address] [place] [id number] Lilian King, DO [address] [place], [place] [id number] [facility] Start: 01-21-2024 End: 01-21-2024 Patient encounter procedure 01/21/2024 9:40 AM EDT Routine [facility] [address] [place] [address] Lilian King, DO [address] [place], [place] [id number] [facility] Start: 12-23-2023 End: 12-23-2024 CBC panel - Blood by Automated count CBC Lab Routine Diabetes mellitus screening Expected: 12/23/2023 (Approximate), Expires: 12/23/2024 [facility] Work Phone: Comment on above: Expected: 12/23/2023 (Approximate), Expires: 12/23/2024 Start: 12-23-2023 End: 12-23-2024 Measurement of glucose 1 hour after glucose challenge for glucose tolerance test Glucose tolerance, 1 hour Lab Routine Diabetes mellitus screening Expected: 12/23/2023 (Approximate), Expires: 12/23/2024 [facility] Comment on above: Expected: 12/23/2023 (Approximate), Expires: 12/23/2024 Start: 12-23-2023 End: 12-23-2023 Patient encounter procedure 12/23/2023 11:20 AM EST Routine [facility] [address] [place] [id number] Mamta Plata PA [address] [place], [place] [id number] Third trimester [facility] Comment on above: Third trimester preg lalit Start: 12-03-2023 End: 12-03-2023 Patient encounter procedure 12/03/2023 11:00 AM EST Appointment [facility] [address] [place] [address] [facility] Start: 12-01-2023 End: 12-01-2023 Patient encounter procedure 12/01/2023 1:30 PM EST Appointment [facility] [address] [place] [address] [facility] Start: 11-26-2023 End: 11-26-2023 Telemedicine consultation with patient 11/26/2023 3:00 PM EST Telemedicine [facility] [address] [place] [address] Lucia Toth MD [address] [facility], [address] [place] [address] Nataly Koo, [facility] [address] [place] [address] [facility] Start: 07-10-2023 Influenza vaccination Influenza Vacc ine [facility] Start: 2008 Screening for malign ant neoplasm of cervix Pap Smear [facility] Start: 2005 Adult BMI Screening Adult BMI Screen ing [facility] Start: 1999 Depression Screening Depression Scre ening [facility] Start: 1998 DTaP,Tdap and Td Vaccines (5 - Tdap) DTaP,Tdap and Td Vaccines (5 - Tdap) [facility] Payers Date Payer Category [place] [id number] 2023-[facility] [phone] [address] [place] [address] [id number] 2023 Medicaid [id number] 2019 Unknown [id number] [id number] [id number] 2019 Unknown [id number] 1985 Unknown [id number] 2.16.840.1.425014.3.579.2.593 1987 Unknown [id number] 2.16.840.1.252283.3.579.2.1286 1987 Unknown [id number] 2.16.840.1.230769.3.579.2.1286 1987 Unknown [id number] 2.16.840.1.742469.3.579.2.1286 1987 Unknown [id number] 2.16.840.1.600474.3.579.2.1286 1987 Unknown [id number] 2.16.840.1.334421.3.579.2.1286 1987 Unknown [id number] 2.16.840.1.452248.3.579.2.1286 1987 Unknown [id number] 2.16.840.1.560760.3.579.2.1259 1987 Unknown [id number] 2.16.840.1.848347.3.579.2.1259 1987 Unknown [id number] 2.16.840.1.080646.3.579.2.1259 1987 Unknown [id number] 2.16.840.1.169332.3.579.2.9 1987 Unknown [id number] 2.16.840.1.934563.3.579.2.1259 1987 Unknown [id number] 2.16.840.1.125566.3.579.2.9 1987 Unknown [id number] 2.16.840.1.378616.3.579.2.1259 1987 Unknown [id number] 2.16.840.1.812770.3.579.2.1259 1987 Unknown [id number] 2.16.840.1.112102.3.579.2.1259 1987 Unknown [id number] 2.16.840.1.832528.3.579.2.1259 1987 Unknown [id number] 2.16.840.1.909863.3.579.2.1259 1959 Unknown [id number] Social History Date Type Detail Facility Start: 05-24-2023 End: 10-26-2023 Tobacco smoking status MTIS Ex-smoker [facility] History of tobacco use Current smoker [facility] History of tobacco use Cigarette Smoker [facility] Start: 10-30-2023 End: 11-24-2023 Alcohol intake Lifetime non-drinker (finding) [facility] Start: 10-30-2023 End: 12-29-2023 History of Social function [facility] Start: 10-30-2023 End: 12-29-2023 Tobacco use panel [facility] Housing Instability Unknown [facility] Start: 07-24-2023 [facility] Start: 1985 Sex Assigned At Not on file [facility] Start: 1985 Sex Assigned At [facility] Start: 05-26-2023 Gender identity Identifies as female gender (finding) [facility] Start: 12-29-2023 Alcohol intake Ex-drinker (finding) [facility] Clinical Notes 11-11-2023 to 12-29-2023 Isaias [...] continue with routine care in your office [facility], the CDC, and other organizations representing maternal and public health professionals recommend that , , and lactating people and those considering receive the COVID-19 vaccination. Vaccination is the best method to reduce maternal and complications of SARS-CoV-2 infection. This document was created with [employer] technology. Though I make every effort to review the dictation as it is transcribed, on occasion the spoken word can be misinterpreted by the technology leading to inappropriate words, phrases, or sentences. This note is addressed to the requesting provider as a consultation for clinical guidance. Specific medical abbreviations are occasionally used and those are generally approved by the [place]?Board of?Obstetrics and?Gynecology?as well as?Merly de anda abbreviations. The above plan of care was based solely on the diagnoses for which a consultation was requested. ?More frequent testing may be indicated based on her other medical/obstetrical conditions. The management of other or medical conditions is beyond the scope of requested consultation and will continue to be followed by the primary drupal php developer or primary care provider. Thank you for [...] procedures Referring and communicating with other health direct care counselor (not separately reported) Documenting clinical information [...] provider today? No [facility] History of Presen t illness Narrative [...] of: ROMAN Valadez documented in this encounter [facility] 11-26-2023 History of Presen t illness Narrative Summary: [facility] Genetic Counseling Note Images from the original note were not included. Provider at different site/location than patient. I confirmed the patient is located in the [facility]. Lenora Galaviz is currently at home and provider at remote site. The patient consented to be treated electronically via this form of telemedicine. This visit was not related to an office visit or procedure in the past 7 days, and in-office follow up is not recommended in the next 24 hours. Video Visit via Real-time Synchronous Audiovisual Provider Location: [facility] MATERNAL- MEDICINE AT [address] [phone] Patient Location: Patient's home Patient Location Entertainment Musician: None Video Visit Consent Statement: I discussed [...] that there are some limitations compared to [id number]-[id number] evaluations. We elected to proceed. Name: Lenora Galaviz : 1985 Date of Visit: 11/26/2023 Email: @[email or web address] Preferred contact method: email Partner's Name: Mohit Age: 45 Requesting Physician: Lucia Toth MD [address] [place] [address], [address] [place], [place] [id number] Reason for Referral: Lenora Galaviz is a 38 y.o. female who presented to [facility]. Lenora is here at [...] - negative Performing lab: [facility] Test type: Superintendent Track Screen without X-linked Disorders (CF and SMA) [...] slight increased risk of new gene mutations. ([place] [employer] Statement on Guidance [...] greater than ~5 Mb. Karyotype can also pick up driver mosaicism potentially as low as ~10%. [...] (rarechromo.org) I personally spent 30 minutes in aech-ct-vpwj time with this patient. I provided genetic [...] call or email their genetic counselor at [phone] or [email or web address] if any additional questions or concerns should arise. PATRICIA Grant Licensed, Certified Genetic Counselor documented in this encounter [facility] 11-11-2023 Miscellaneous Notes Attempted to call patient regarding carrier results. No answer, left VM to call back. documented in this encounter [facility] 11-11-2023 Telephone encounter Note Attempted to call patient regarding carrier results. No answer, left VM to call back. 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 SystemInstructionsNot on filedocumented in this encounter [facility] SystemInstructionsNot on filedocumented in this encounter [facility] (narrative)* Consultation (Routine) - Pending Review Specialty Diagnoses / Procedures Referred By Juanita tello Referred To Contact Maternal and Medicine Diagnoses Multigravida of advanced maternal age in second trimester Abnormal genetic test during Lucia Toth MD [address] [place], [address] [place] [address] [facility] Maternal Med [address] [place] [address] Referral ID Status Reason Start Date Expiration Date Visits Requested Visits Authorized [id number] Pending Review Specialty Services Required 3 11/03/2024 1 1 [facility] Narrative* Consultation (Routine) - Pending Review Specialty Diagnoses / Procedures Referred By Juanita tello Referred To Contact Maternal and Medicine Diagnoses Multigravida of advanced maternal age in second trimester Abnormal genetic test during Lucia Toth MD [address] [place], [address] [place] [address] [facility] Maternal Med [address] [place] [address] Referral ID Status Reason Start Date Expiration Date Visits Requested Visits Authorized [id number] Pending Review Specialty Services Required 3 11/03/2024 1 1 [facility] Summary Purpose Family History No Family History Records FoundNo Family History Records FoundNo Family History Records FoundNo Family History Records Found Advance Directives No Advanced Directives Records FoundNo Advanced Directives Records FoundNo Advanced Directives Records FoundNo Advanced Directives Records Found Additional Source Comments INFORMATION SOURCE (unrecogn ized section and content) DATE CREATED AUTHOR 01/17/2023 [facility] DATE CREATED AUTHOR AUTHOR'S ORGANIZ ATION 12/04/2023 [facility] DATE CREATED AUTHOR AUTHOR'S ORGANIZ ATION 01/06/2024 [facility] DATE CREATED AUTHOR AUTHOR'S ORGANIZ ATION 04/07/2024 [facility] EPIC Reason for Visit (unrecogniz ed section and content) Reason Comments Routine Visit Reason Comments Marginal Insertion of Umbilical Cord Advanced Maternal Age Circumvallate Placenta Care Teams (unrecognized sec tion and content) Clinical Nursing Assistant Relationship Specialty Start Date End Date No Pcp, [place] [address] PCP - General Family Medicine 12/01/23 FOR [...] BE BASED ON THE PRIMARY CLINICAL RECORDS. [employer] [facility]. provides no warranty or guarantee of the accuracy or completeness of information in this document.
[2024-04-11] MEDS: 0.9 % SODIUM CHLORIDE 1,000 ML 1000 ML IV ×2 (06:05→06:44)
[2024-04-11] MEDS: CITRIC ACID/SODIUM CITRATE 30 ML SOLUTION ORACIT SHOHL'S SOLN PO (06:11)
[2024-04-11] MEDS: METOCLOPRAMIDE HCL 10 MG/2 ML VIAL IVP (06:13)
[2024-04-11] MEDS: FAMOTIDINE/PF 20 MG/2 ML VIAL IV (06:13)
[2024-04-11 06:21] LABS: Basophils Absolute Auto 0.1 10^3/uL (0.0-0.1); Basophils Percent Auto 0.7 % (0.2-2.0); Eosinophils Absolute Auto 0.3 10^3/uL (0.0-0.7); Hematocrit 32.9 % (36.0-48.0); Hemoglobin 10.7 g/dL (12.0-16.0); Lymphocytes Percent Auto 29.2 % (20.5-60.0); Mean Corpuscular HGB Conc 32.5 g/dL (29.9-35.2); Mean Corpuscular Hemoglobin 32.5 pg (26.7-34.0); Mean Platelet Volume 12.3 fL (9.5-13.5); Neutrophils Absolute Auto 5.7 10^3/uL (1.4-6.5); Neutrophils Percent Auto 56.1 % (43.0-75.0); Platelet Count 133 10^3/uL (150-450); Red Blood Count 3.29 10^6/uL (4.20-5.40); Red Cell Distribution Width 13.5 % (11.0-15.0); White Blood Count 10.1 10^3/uL (4.0-11.0)
[2024-04-11 06:48] LABS: Amphetamine Screen Urine NEGATIVE (NEGATIVE); Barbiturates Screen Urine NEGATIVE (NEGATIVE); Benzodiazepines Screen Urine NEGATIVE (NEGATIVE); Buprenorphine Screen Urine NEGATIVE (NEGATIVE); Cannabinoid Screen Urine NEGATIVE (NEGATIVE); Cocaine Screen Urine NEGATIVE (NEGATIVE); Methadone Screen Urine NEGATIVE (NEGATIVE); Methamphetamines Screen Urine NEGATIVE (NEGATIVE); Opiate Screen Urine NEGATIVE (NEGATIVE); Oxycodone Screen Urine NEGATIVE (NEGATIVE); Phencyclidine Screen Urine NEGATIVE (NEGATIVE); Tricyclic Antidepressant Urine NEGATIVE (NEGATIVE)
[2024-04-11] MEDS: 0.9 % SODIUM CHLORIDE 1,000 ML 125 ML IV (07:31)
[2024-04-11] MEDS: CEFAZOLIN SODIUM/DEXTROSE,ISO 2 GM/50 ML PIGGYBACK IV (07:35)
--- NOTE | 2024-04-11 08:23 | PM.ONB ---
Brief Operative Note Date of procedure: 04/11/24 Pre-op diagnosis general: iup at 39wks, breech presentation Post-op diagnosis: same as pre-op Procedure: NAME OF PROCEDURE: [ section with bilateral salpingectomy ] PROCEDURE: Patient was taken back to the Operating Room where she was given a spinal anesthesia with Duramorph without difficulty. She was prepped and draped in the normal sterile fashion. A Pfannenstiel skin incision was then made 2?cm above the symphysis pubis and carried down to underlying rectus fascia using a Bovie. The fascia was incised in the midline and extended laterally using Newton scissors. Two Clau clamps were placed on the superior aspect of the fascia and dissected off the underlying rectus muscles. The same was performed on the inferior aspect as well. The muscles were then in the midline. Peritoneum was identified and entered bluntly. The peritoneum was then extended superiorly and inferiorly with good visualization of the bladder. The bladder blade was inserted. Vesicouterine peritoneum was identified, tented up, and entered with Metzenbaum scissors. A bladder flap was then created digitally. The bladder blade was reinserted. A low transverse incision was made on the patient's uterus and extended laterally digitally. The infant was then delivered atraumatically after the bladder blade was removed in the cephalic position. The cord was clamped and cut. Cord blood was obtained. The was handed off to awaiting team. The patient's placenta was spontaneously delivered. The uterus was then exteriorized. The uterus was cleared of all clots and debris. The bladder blade was reinserted. The patient's uterine incision was closed using #0 Vicryl in a running lock fashion. Excellent hemostasis was assured.? The rt tube was identified and grasped with babchris, the ligasure was used to transect and ligate the tube in its entirity, this was done on the contralateral side as well. The uterus was then returned to the patient's abdomen. The patient's abdomen was copiously irrigated using warm saline. Peritoneal gutters were cleared of all clots and debris. Again excellent hemostasis was assured. The patient's fascia was closed using #0 Vicryl in a running fashion. The patient's skin was closed using 4-0 Vicryl subcuticularly. The patient tolerated the procedure well. Sponge, lap, and needle counts were correct x2. The patient was taken to the Recovery Room in stable condition. Anesthesia: spinal Surgeon: Adolph King Movie [employer] Usher: Eliana Ugarte Estimated blood loss (mL): 575 Pathology: other (tubes) Condition: stable Disposition: floor Urinary Catheter Management Urinary Catheter Management Urethral: Cath placed during this visit: no
--- NOTE | 2024-04-11 08:24 | PM.OBPRCCS ---
Procedure Pre-op/Post-op diagnoses: Pre-Op/Post-Op Diagnoses Operation Date: 04/11/24 07:30 <No data on this case meets the specified criteria> Procedure: Procedures Operation Date: 04/11/24 07:30 Actual Procedure Side Surgeon p with bilateral salpingectomy Bilateral Adolph King DO Poolroom Table Attendant: Eliana Ugarte Estimated blood loss (mL): 575 Disposition: floor Anesthesia type: Spinal
[2024-04-11] MEDS: BUPIVACAINE HCL 0.25% PF 25 MG/10 ML VIAL 20 ML INJ (08:35)
[2024-04-11] MEDS: BUPIVACAINE LIPOSOME/PF 266 MG/13.3 ML VIAL INJ (08:35)
[2024-04-11] MEDS: 0.9 % SODIUM CHLORIDE 10 ML VIAL 20 ML INJ (08:35)
[2024-04-11] MEDS: OXYTOCIN/0.9 % SODIUM CHLORIDE 20 UNITS/1,000 ML PLAST..BAG 125 UNIT IV (08:45)
--- NOTE | 2024-04-11 09:50 | PC.NURSE ---
MAXIM Werner aware of dense spinal and patient's size. Patient continues recovery with another RN.
[2024-04-11] MEDS: CEFAZOLIN SODIUM/DEXTROSE,ISO 1 GM/50 ML IV.SOLN IV (14:49)
[2024-04-11] MEDS: KETOROLAC TROMETHAMINE 30 MG/ML VIAL IVP ×2 (15:29→21:52)
--- NOTE | 2024-04-11 20:28 | W.PC.ACHO ---
Registration Status: ADM IN Primary Language: Chadian Preferred Language: Chadian Report given to Eddi DURBIN at 1915. Active Medications Generic Name Dose Route Start Last Admin Trade Name Freq PRN Reason Stop Dose Admin Acetaminophen 1,000 mg 04/11/24 20:00 Acetaminophen 500 Mg Tablet PO Q6H PRN Mild pain Al Hydroxide/Mg Hydroxide 2,400 mg 04/11/24 08:24 Magnesium Hydroxide 2,400 Mg/10 Ml Oral.Susp PO Q6H PRN Dyspepsia Diphenhydramine HCl 25 mg 04/11/24 08:24 Diphenhydramine Hcl 50 Mg/Ml Vial IV 04/12/24 08:25 Q6H PRN Itching Diphtheria/Pertussis/Tetanus Vacc 0.5 ml 04/13/24 09:00 Adacel Diph,Pertuss(Acell),Tet Vac/Pf 0.5 Ml Adult Syringe IM 04/13/24 09:01 .ONCE ONE Docusate Sodium 100 mg 04/12/24 09:00 Docusate Sodium 100 Mg Capsule PO BID DORIS Hydromorphone HCl 0.5 mg 04/11/24 07:27 Hydromorphone Hcl 0.5 Mg/0.5 Ml Syringe IV Q5M PRN Pain Sodium Chloride 1,000 mls @ 125 mls/hr 04/11/24 06:00 04/11/24 07:31 Sodium Chloride 0.9% 1,000 Ml IV 125 mls/hr .Q8H DORIS Administration Lactated Ringer's 1,000 mls @ 75 mls/hr 04/11/24 07:30 Lactated Ringers IV 04/11/24 20:49 .[id number] ONE Lactated Ringer's 1,000 mls @ 125 mls/hr 04/11/24 08:30 Lactated Ringers IV .Q8H DORIS Promethazine HCl 25 mg/ Sodium 51 mls @ 204 mls/hr 04/11/24 08:24 Chloride IV Q6H PRN Nausea And Vomiting Ibuprofen 800 mg 04/11/24 08:24 Ibuprofen 400 Mg Tablet PO Q8H PRN Pain Ketorolac Tromethamine 30 mg 04/11/24 08:24 04/11/24 15:29 Ketorolac Tromethamine 30 Mg/Ml Vial IVP 04/13/24 08:25 30 mg Q6H PRN Administration Pain Meperidine HCl 25 mg 04/11/24 07:27 Meperidine Hcl/Pf 25 Mg/Ml Vial IVP ONCE PRN Pain Ondansetron HCl 4 mg 04/11/24 08:24 Ondansetron Pf 4 Mg/2 Ml Vial IV Q6H PRN Nausea And Vomiting Ondansetron HCl 4 mg 04/11/24 08:24 Ondansetron 4 Mg Rapdis Tablet PO Q6H PRN Nausea And Vomiting Oxycodone/Acetaminophen 1 tab 04/11/24 08:24 Oxycodone Hcl/Acetaminophen 5mg/325mg PO Q4H PRN Pain Scale 4-6 Oxycodone/Acetaminophen 2 tab 04/11/24 08:24 Oxycodone Hcl/Acetaminophen 5mg/325mg PO Q4H PRN Pain Scale 7-10 Senna 17.2 mg 04/11/24 20:00 Sennosides 8.6 Mg Tablet PO QHS PRN Constipation Simethicone 80 mg 04/11/24 08:24 Simethicone 80 Mg Tab.Chew PO QID PRN Abdominal Distention Diet Category Date Time Status Regular Consistency Diet Diet 04/11/24 08:24 Active Consults Category Date Time Status Consult to Anesthesiology Routine Cons 04/11/24 Ordered IV Insertion/Site Date of IV Line Insertion [20g 04/11/24 right Hand] IV Insertion Time [20g right 05:55 Hand] Neurology Patient orientation (short person,place,time,situation list) Respiratory Pulse Oximetry 98 Pulse Oximetry 100 Pulse Oximetry 100 Pulse Oximetry 99 Pulse Oximetry 99 Pulse Oximetry 99 Pulse Oximetry 99 Pulse Oximetry 100 Pulse Oximetry 100 Pulse Oximetry 99 Pulse Oximetry 100 Pulse Oximetry 99 Pulse Oximetry 99 Pulse Oximetry 100 Pulse Oximetry 100 Pulse Oximetry 99 Pulse Oximetry 100 Pulse Oximetry 97 Pulse Oximetry 99 Pulse Oximetry 100 Pulse Oximetry 100 Pulse Oximetry 100 Pulse Oximetry 100 Pulse Oximetry 100 Pulse Oximetry 100 Pulse Oximetry 99 Oxygen Delivery Method Room Air Oxygen Delivery Method Room Air Oxygen Delivery Method Room Air Oxygen Delivery Method Room Air Oxygen Delivery Method Room Air Oxygen Delivery Method Room Air Oxygen Delivery Method Room Air Oxygen Delivery Method Room Air Oxygen Delivery Method Room Air Oxygen Delivery Method Room Air Catheter Urinary Catheter Date of 04/11/24 Insertion [Urethral] Urinary Catheter Time of 07:45 Insertion [Urethral]
[2024-04-12] MEDS: KETOROLAC TROMETHAMINE 30 MG/ML VIAL IVP (04:02)
[2024-04-12] MEDS: SIMETHICONE 80 MG TAB.CHEW PO ×3 (04:02→18:56)
[2024-04-12 04:07] VITALS: BP 101/57; PULSE 63
[2024-04-12 05:35] LABS: Hematocrit 30.5 % (36.0-48.0); Hemoglobin 9.9 g/dL (12.0-16.0); Mean Corpuscular HGB Conc 32.5 g/dL (29.9-35.2); Mean Corpuscular Hemoglobin 32.7 pg (26.7-34.0); Mean Corpuscular Volume 100.7 fL (81.0-99.0); Mean Platelet Volume 11.6 fL (9.5-13.5); Platelet Count 122 10^3/uL (150-450); Red Blood Count 3.03 10^6/uL (4.20-5.40); Red Cell Distribution Width 13.6 % (11.0-15.0); White Blood Count 17.8 10^3/uL (4.0-11.0)
[2024-04-12 06:07] LABS: Band Neutrophils Absolute 0.4 10^3/uL (0.0-0.3); Lymphocytes Absolute Manual 3.73 10^3/uL (1.20-3.80); Monocytes Absolute Manual 0.71 10^3/uL (0.30-0.80); Segmented Neut Absolute Manual 12.99 10^3/uL (1.4-6.5)
--- NOTE | 2024-04-12 06:51 | P.OBPN_ITS ---
OB - PN: Subj Subjective Patient comments: no complaints and pain well controlled [place] status: doing well Exam Constitutional Vital Signs, click to edit/add: Last Vital Signs Temp 98.5 F 04/11/24 23:50 Pulse 63 04/12/24 04:07 Resp 16 04/11/24 16:58 BP 101/57 04/12/24 04:07 Pulse Ox 98 04/11/24 10:33 O2 Del Method Room Air 04/12/24 04:00 Documenting provider has reviewed patient's vital signs: yes Common normals: no apparent distress Respiratory Common normals: normal respiratory effort and clear to auscultation bilaterally Cardio Common normals: regular rate and regular rhythm GI Common normals: Normal to inspection, nondistended, normoactive bowel sounds present Extremity Common normals: no clubbing, cyanosis or edema and no calf tenderness Results Labs Labs: Short CBC 04/12/24 Range/Units 05:29 WBC 17.8 H (4.0-11.0) 10^3/uL Hgb 9.9 L (12.0-16.0) g/dL Hct 30.5 L (36.0-48.0) % Plt Count 122 L (150-450) 10^3/uL Urinary Catheter Management Urinary Catheter Management Urethral: Cath placed during this visit: yes, but has since been removed by the prasad brown Insertion date: 04/11/24 Insertion time: 07:45 Removal date: 04/11/24 Removal time: 21:45 OB - PN: A/P Plan - day: 1 Plan: routine postop care Time Spent with Patient Time: Total time spent is greater than 50% in coordination of care (as documented) at patient's floor/unit and/or counseling patient: Total time spent with greater than 50% in coordination of care (as documented) at patient's floor/unit and/or counseling patient: less than 15 minutes
[2024-04-12 10:36] VITALS: BP 134/78; PULSE 78; TEMP 36.7; O2SAT 97
[2024-04-12] MEDS: IBUPROFEN 400 MG TABLET 800 MG PO ×2 (12:16→21:37)
[2024-04-12] MEDS: DOCUSATE SODIUM 100 MG CAPSULE PO ×2 (12:16→21:37)
[2024-04-12 17:03] VITALS: BP 117/57; PULSE 68
[2024-04-13 00:04] VITALS: BP 119/64; PULSE 72
[2024-04-13] MEDS: ACETAMINOPHEN 500 MG TABLET 1000 MG PO (00:10)
[2024-04-13 00:41] VITALS: TEMP 36.5
[2024-04-13] MEDS: IBUPROFEN 400 MG TABLET 800 MG PO (06:46)
--- NOTE | 2024-04-13 07:33 | PM.OBPN ---
OB - PN: Subj Subjective Patient comments: no complaints and pain well controlled [place] status: doing well Exam Constitutional Vital Signs, click to edit/add: Last Vital Signs Temp 97.7 F 04/13/24 00:41 Pulse 72 04/13/24 00:04 Resp 16 04/13/24 00:41 BP 119/64 04/13/24 00:04 Pulse Ox 97 04/12/24 10:36 O2 Del Method Room Air 04/13/24 00:41 Documenting provider has reviewed patient's vital signs: yes Common normals: no apparent distress Respiratory Common normals: normal respiratory effort and clear to auscultation bilaterally Cardio Common normals: regular rate and regular rhythm GI Common normals: Normal to inspection, nondistended, normoactive bowel sounds present Extremity Common normals: no clubbing, cyanosis or edema and no calf tenderness Urinary Catheter Management Urinary Catheter Management Urethral: Cath placed during this visit: yes, but has since been removed by the nurse Insertion date: 04/11/24 Insertion time: 07:45 Removal date: 04/11/24 Removal time: 21:45 OB - PN: A/P Plan - day: 2 Plan: routine postop care, discharge home and other (fu 1wk) Time Spent with Patient Time: Total time spent is greater than 50% in coordination of care (as documented) at patient's floor/unit and/or counseling patient: Total time spent with greater than 50% in coordination of care (as documented) at patient's floor/unit and/or counseling patient: less than 15 minutes
[2024-04-13 07:35] VITALS: TEMP 36.7
[2024-04-13 07:41] VITALS: BP 121/68; PULSE 74
[2024-04-13] MEDS: DOCUSATE SODIUM 100 MG CAPSULE PO (08:23)
[2024-04-13] MEDS: SIMETHICONE 80 MG TAB.CHEW PO (08:23)
--- NOTE | 2024-04-13 08:39 | PC.NURSE ---
0810 Medicated for gas pain, denies incisional pain, Dr King in, discussed plan of care and feeding plan for baby, given lanolin and instructions for use.
== END 2024-04-13 11:05 | disposition home or self-care (01) | DRG 785 ==
PROVIDERS: Admitting Provider Obstetrics & Gynecology; Visit Provider Obstetrics & Gynecology
PROC: 10D00Z1 Extraction of Products of Conception, Low, Open Approach (ICD-10-PCS; CPT 59514; principal; 2024-04-11 07:30)
DX: O32.1XX0 Maternal care for breech presentation, not applicable or unspecified (principal); Z3A.39 39 weeks gestation of pregnancy; Z37.0 Single live birth; Z30.2 Encounter for sterilization; Z87.891 Personal history of nicotine dependence
CPT/HCPCS: 36415; 51702; 59050; 64488; 80307; 85007; 85025; 85027; 86850; 86900; 86901; 88302; 94667; 94668; 96374; 96375; 96376; J1094

== ENCOUNTER 2024-04-15 08:17 | Outpatient (OUT) | payer BC, OTHER, SELFPAY ==
--- OUTSIDE RECORDS SUMMARY | 2024-04-15 08:27 | XMS_ITS | CCD ---
Author Organization [facility] Care Team Providers Care Wire Inserter Name Role Phone AKIKO ., DR SÁNCHEZ [...] Care Unavailable MOUSSA, HIND NADIM Attending Unavailable CHRISTINE, LILIAN R Referring Unavailable NO PCP, NO PCP Primary Care Unavailable REF PROV, NOT IN SYSTEM Referring Unavaila ble CHRISTINE, LILIAN Attending Unavailable CHRISTINE, LILIAN Attending Unavailable BONI, MAMTA Attending Unavailable CHRISTINE, LILIAN Attending Unavailable CHRISTINE, LILIAN Attending Unavailable BONI, MAMTA Attending Unavailable BONI, MAMTA Attending Unavailable CHRISTINE, LILIAN Attending Unavailable BONI, MAMTA Attending Unavailable CHRISTINE, LILIAN Attending Unavailable CHRISTINE, LILIAN Attending Unavailable Christine, Lilian Attending Provider Christine, Lilian Attending Unavailable Christine, Lilian Admitting Unavailable Medications Current Medications Medication Drug Class(es) [...] Translations: [Encounter for other specified screening] Onset: 02-28-2023 Episodic Residual codes; unclassified (1 source) Gestation [...] Test Name Value Interpretation Reference Range Facility [facility] 04-11-2024 L Specimen: [id number] Received: 04/11/24 Status: MELBA Morrison Num: [id number] Spec Type: Surgical Subm Dr: Lilian King Tissues: A Fallopian Tube - Sterilization (BILATERAL FALLOPIAN TUBES) Procedures: HE/2, Gross/Micro L2 Age/ Patient Sex Location Account Attending Physician Galaviz,Lenora 39/F LABELL [id number] Lilian King SPEC NUM: [id number] RECD: 04/11/24 STATUS: DAVIDLynette MORRISON NUM: [id number] RAZA: 04/11/[address]: Lilian King ENTERED: 04/11/24 [facility] DR: Yamilex,Lab SPEC TYPE: Surgical DEPT: YANETH GASCA ORDERED: HE/2, Gross/Micro L2 ORDERED: HE/2, Gross/Micro L2 Pathological Diagnosis Bilateral fallopian tubes, resection: No significant pathologic abnormality. Clinical Information Breech presentation, request for sterilization. Gross Description Received in formalin labeled with the patient's name, date of and bilateral fallopian tubes are 2 undesignated fimbriated fallopian tubes assigned as #1 and #2. Each tube is covered by bhatt-purple serosa containing multiple paratubal cysts ranging from 0.1 to 0.3 cm. Tube #1 measures 8.2 cm in length by 0.6 cm in diameter and tube #2 measures 7.3 cm in length by 0.7 cm in diameter. Cut sections for each tube demonstrate an intact luminal center lined by unremarkable bhatt mucosa. Layaway Clerk sections of each tube are submitted in A1 (tube #1) and A2 (tube #2). CPT Codes 04133 -------- -------- Specimen: [id number] Received: 04/11/24 Status: MELBA Tamiko Num: [id number] Spec Type: Surgical Subm Dr: Lilian King Tissues: A Fallopian Tube - Sterilization (BILATERAL FALLOPIAN TUBES) Procedures: SAE/Tamra Barrera/Samuel L2 -------- Patient: Lenora Galaviz [id number] (Continued) -------- Signed (signature on file) Wendy Carter MD 04/12/24 1413 Normal [facility] Urinalysis macro (dipstick) panel (U)on 12-23-2023 Bilirubin, UA Negative Negative - 4(70) +++ mg/dL [facility] Blood, UA Negative Negative - 50 Ari/mcL [facility] Clarity, UA Clear [facility] Color, UA Yellow [facility] Glucose, UA Negative Negative - 1999(110) ++++ mg/dL [facility] Interpretation and review of laboratory results Normal [facility] Ketones, UA Negative Negative - 160(16) ++++ mg/dL [facility] Leukocytes, UA Negative Negative - 500+++ Panchito/mcL [facility] Nitrite, UA Negative Negative - Positive [facility] pH, UA 7.5 5 - 9 [facility] Protein, UA Negative Negative - 1999(20) ++++ mg/dL [facility] Spec Grav, UA 1.015 1 - 1.03 [facility] Urobilinogen, UA 0.2 0.2 - 12 mg/dL [facility] FREE T3on 10-29-2023 Free T3 [Mass/Vol] 2.72 pg/mL Normal 2.50-3.90 [facility] Comment on above: Performed By: #### 3 051-0, THYR #### [facility] ([id number]) [address] [place] [address] THYROID PROFILEon 10-29-2023 Free T4 [Mass/Vol] 0.85 ng/dL Normal 0.61-1.60 [facility] Comment on above: Performed By: #### 3 051-0, THYR #### [facility] ([id number]) Formerly [facility] [address] [place] [address] TSH 0.18 uIU/mL Low 0.49-4.67 [facility] Comment on above: Performed By: #### 3 051-0, THYR #### [facility] ([id number]) [address] [place] [address], [address] [place] [address] Thyroid stimulating immunogl obulins Qn (S)on 10-29-2023 TSI See Below Normal [facility] Comment on above: Result Comment: NOTE [...] Clinical correlation is required. Test Performed By: [facility] [employer] [address] [place] [address] Electric Sealing Machine Operator: Jose Enrique Samuel III, M.D. CLIA #[id number] Performed By: #### 3 051-0, THYR #### [facility] ([id number]) [address] [place] [address], [address] [place] [address] PAP ACOG PANEL 1: 30 to 65on 01-15-2023 . . Normal [facility] Comment on above: Result Comment: Perf ormed at: WB Performed By: #### 4 [id number] #### [facility] [address] [place] [address] Dr. Ata Rao Age Gdln ACOG Testing 30-65 Normal [facility] Comment on above: Performed By: #### 4 [id number] #### [facility] [address] [place] [address] Dr. Ata Rao DIAGNOSIS: Comment Normal [facility] Comment on above: Result Comment: NEGA TIVE FOR INTRAEPITHELIAL LESION OR MALIGNANCY. CELLULAR CHANGES ASSOCIATED WITH INFLAMMATION ARE PRESENT. THIS SPECIMEN WAS RESCREENED PART OF OUR MANAGER TRANSPORTATION PROGRAM. Performed at: WB Performed By: #### 4 [id number] #### [facility] [address] [place] [address] Dr. Ata Rao HPV Aptima Negative Normal Negative [facility] Comment on above: Result Comment: This nucleic acid amplification test detects fourteen high-risk HPV types (16,18,31,33,35,39,45,51,52,56,58,59,66,68) without differentiation. Performed at: =G Performed By: #### 4 [id number] #### [facility] [address] [place] [address] Dr. Ata Rao HPV Genotype Reflex Comment Normal [facility] Comment on above: Result Comment: Crit eria not met, HPV Genotype not performed. Performed at: WB Performed By: #### 4 [id number] #### [facility] [address] [place] [address] Dr. Ata Rao Methodology: Comment Normal [facility] Comment on above: Result Comment: This liquid based ThinPrep(R) pap test was screened with the use of an image guided system. Performed at: WB Performed By: #### 4 [id number] #### [facility] [address] [place] [address] Dr. Ata Rao Note: Comment Normal [facility] Comment on above: Result [...] Performed at: WB Performed By: #### 4 [id number] #### [facility] [address] [place] [address] Dr. Ata Rao Performed by: Comment Normal [facility] Comment on above: Result Comment: Matt Tang, Chief Librarian Branch (ASCP) Performed at: WB Performed By: #### 4 [id number] #### [facility] [address] [place] [address] Dr. Ata Rao QC reviewed by: Comment Normal [facility] Comment on above: Result Comment: Jeanette Zhang, Supervisory Chief Librarian Branch (ASCP) Performed at: WB Performed By: #### 4 [id number] #### [facility] [address] [address] [address] Ata Rao Specimen adequacy: Comment Normal [facility] Comment on above: Result Comment: Sati sfactory for evaluation. Endocervical and/or squamous metaplastic cells (endocervical component) are present. Performed at: WB Performed By: #### 4 [id number] #### [facility] [address] [address] [address] Ata Rao Vital Signs Date Time Vital Sign Value Performing Clinician Faci lity 12-29-2023 13:10-0500 Body height 163.8 cm Isaias Lujan MD Work Phone: [facility] 12-29-2023 13:10-0500 Body mass index (BMI) [Ratio] 21.26 kg/m2 Isaias Lujan MD Work Phone: [facility] 12-29-2023 13:10-0500 Body weight 57.06 kg Isaias Lujan MD Work Phone: [facility] 12-29-2023 13:10-0500 Diastolic blood pressure 54 mm[Hg] Isaias Lujan MD Work Phone: [facility] 12-29-2023 13:10-0500 Heart rate 82 /min Isaias Lujan MD Work Phone: [facility] 12-29-2023 13:10-0500 Systolic blood pressure 112 mm[Hg] Isaias Lujan MD Work Phone: [facility] 12-23-2023 11:32-0500 Body mass index (BMI) [Ratio] 21.46 kg/m2 Mamta OWENS Work Phone: [facility] 12-23-2023 11:32-0500 Body weight 56.7 kg Mamta OWENS Work Phone: [facility] 12-23-2023 11:32-0500 Diastolic blood pressure 68 mm[Hg] Mamta OWENS Work Phone: [facility] 12-23-2023 11:32-0500 Systolic blood pressure 104 mm[Hg] Mamta OWENS Work Phone: [facility] Encounters Encounter Date Encounter Type Care Provider Facility Start: 04-11-2024 End: 04-11-2024 ambulatory Lilian Christine [facility] Work Phone: Start: 04-11-2024 End: 04-11-2024 Departed Referred Lilian Chandrao Work Phone: [facility] Start: 04-06-2024 End: 04-06-2024 ambulatory LILIAN CHRISTINE Not Available Start: 03-29-2024 End: 03-29-2024 ambulatory LILIAN CHRISTINE Not Available Start: 03-22-2024 End: 03-22-2024 ambulatory MAMTA PLATA Not Available Start: 03-08-2024 End: 03-08-2024 ambulatory LILIAN CHRISTINE Not Available Start: 02-23-2024 End: 02-23-2024 ambulatory MAMTA PLATA Not Available Start: 02-04-2024 End: 02-04-2024 ambulatory LILIAN CHRISTINE Not Available Start: 01-21-2024 End: 01-21-2024 ambulatory LILIAN CHRISTINE Not Available Start: 12-29-2023 End: 12-30-2023 ambulatory [facility] Start: 12-29-2023 End: 12-29-2023 Office outpatient visit 25 minutes Isaias Lujan MD Work Phone: [facility] Comment on above: Multigravida of [...] BCP OB Start: 12-01-2023 End: 12-02-2023 ambulatory [facility] Start: 11-26-2023 End: 11-26-2023 ambulatory [facility] Start: 11-26-2023 End: 11-26-2023 Telemedicine consultation with patient Danteyesenia Mati Toth MD Work Phone: [facility] Comment on above: Abnormal genetic sadi t during (Primary Dx); Multigravida of advanced maternal age in second trimester; 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, antepartum Start: 11-24-2023 End: 11-24-2023 ambulatory LILIAN KING Not Available Start: 11-11-2023 Telephone encounter Ashley Higgins RN Mat ernal- Medicine at [facility] Start: 11-04-2023 Orders Only Radha Sy RN Materna l- Medicine at [facility] Comment on above: Multigravida of adva nced maternal age in second trimester (Primary Dx); Abnormal genetic test during Start: 10-29-2023 End: 10-31-2023 ambulatory NOT IN SYSTEM REF PROV [facility] Start: 10-27-2023 End: 10-27-2023 ambulatory [...] Author Start: 12-29-2024 Tobacco Screening Tobacco Screening [facility] Start: 10-30-2024 Tobacco Screening Tobacco Screening [facility] Start: 02-08-2024 End: 02-08-2024 Patient encounter procedure 02/08/2024 9:00 AM EDT Office Visit [facility] [address] [facility] [id number] Lilian King, DO [address] [place], [place] [id number] [facility] Start: 01-21-2024 End: 01-21-2024 Patient encounter procedure 01/21/2024 9:40 AM EDT Routine [facility] [address] [facility] [place] [address] Lilian King, DO [address] [place], [place] [id number] [facility] Start: 12-23-2023 End: 12-23-2024 [...] mellitus screening Expected: 12/23/2023 (Approximate), Expires: 12/23/2024 [facility] Comment on above: Expected: 12/23/2023 (Approximate), Expires: 12/23/2024 Start: 12-23-2023 End: 12-23-2023 Patient encounter procedure 12/23/2023 11:20 AM EST Routine [facility] [address] [facility] [place] [phone] Mamta Plata PA [address] [place], [place] [id number] Third trimester [facility] Comment on above: Third trimester preg lalit Start: 12-03-2023 End: 12-03-2023 Patient encounter procedure 12/03/2023 11:00 AM EST Appointment [facility] [place] [address] [place] [address] [facility] [place] Start: 12-01-2023 End: 12-01-2023 Patient encounter procedure 12/01/2023 1:30 PM EST Appointment [facility] Ul[facility]ound [address] [place] [address] [facility] Start: 11-26-2023 End: 11-26-2023 Telemedicine consultation with patient 11/26/2023 3:00 PM EST Telemedicine [facility] at [facility] [address] [place] [address] Lucia Toth MD [address] [facility] [address] [address] Nataly Koo, [facility] [address] [place] [address] [facility] at [facility] Start: 07-10-2023 Influenza vaccination Influenza Vacc ine [facility] Start: 2008 Screening for malign ant neoplasm of cervix Pap Smear [facility] Start: 2005 Adult BMI Screening Adult BMI Screen ing [facility] Start: 1999 Depression Screening Depression Scre ening [facility] Start: 1998 DTaP,Tdap and Td Vaccines (5 - Tdap) DTaP,Tdap and Td Vaccines (5 - Tdap) [facility] Payers Date Payer Category Payer Self-pay 2023 [place] [id number] 20[address]-[facility] [phone] [address] [place] [address] [id number] 2023 Medicaid [id number] 2019 Unknown [id number] [id number] [id number] 2019 Unknown [id number] 1987 Unknown [id number] 2.16.840.1.367184.3.579.2.593 1987 Unknown [id number] 2.16.840.1.233336.3.579.2.1286 1987 Unknown [id number] 2.16.840.1.166529.3.579.2.1286 1987 Unknown [id number] 2.16.840.1.231578.3.579.2.1286 1987 Unknown [id number] .16840.1.016160.3.579.2.1286 1987 Unknown [id number] 2.16.840.1.609402.3.579.2.1286 1987 Unknown [id number] 2.16.840.1.269146.3.579.2.1286 1987 Unknown [id number] 2.16.840.1.848354.3.579.2.1259 1987 Unknown [id number] 2.16840.1.174861.3.579.2.1259 1987 Unknown [id number] 2.16.840.1.315263.3.579.2.1259 1987 Unknown [id number] 2.16.840.1.228686.3.579.2.1259 1987 Unknown [id number] 2.16.840.1.987966.3.579.2.1259 1987 Unknown [id number] 2.16.840.1.009550.3.579.2.9 1987 Unknown [id number] 2.16.840.1.402066.3.579.2.1259 1987 Unknown [id number] 2.16.840.1.321379.3.579.2.1259 1987 Unknown [id number] 2.16.840.1.693051.3.579.2.1259 1987 Unknown [id number] 2.16.840.1.674630.3.579.2.1259 1987 Unknown [id number] 2.16.840.1.021381.3.579.2.1259 1959 Unknown [id number] Social History Date Type Detail Facility Start: 05-24-2023 End: 10-26-2023 Tobacco smoking status MNIS Ex-smoker [facility] History of tobacco use Current smoker [facility] History of tobacco use Cigarette Smoker [facility] Start: 10-30-2023 End: 11-24-2023 Alcohol intake Lifetime non-drinker (finding) [facility] Start: 10-30-2023 End: 12-29-2023 History of Social function [facility] Start: 10-30-2023 End: 12-29-2023 Tobacco use panel [facility] Housing Instability Unknown [facility] Start: 07-24-2023 [facility] Start: 1987 Sex Assigned At Not on file [facility] Start: 1987 Sex Assigned At [facility] Start: 05-26-2023 Gender identity Identifies as female gender (finding) [facility] Start: 12-29-2023 Alcohol intake Ex-drinker (finding) [facility] Clinical Notes 11-11-2023 to 12-29-2023 Isaias Lujan [...] Anes PTL Lv 6 Current 5 Term 10/09/17 41w0d 2.948 kg M Vag-Spont CATRINA 4 [...] continue with routine care in your office [facility], the CDC, and other organizations representing maternal and public health professionals recommend that , , and lactating people and those considering receive the COVID-19 vaccination. Vaccination is the best method to reduce maternal and complications of SARS-CoV-2 infection. This document was created with [employer] technology. Though I make every effort to [...] by the [place]?Board of?Obstetrics and?Gynecology?as well as?Merly de anda abbreviations. The above plan of care was based solely on the diagnoses for which a consultation was requested. ?More frequent testing may be indicated based on her other medical/obstetrical conditions. The management of other or medical conditions is beyond the scope of requested consultation and will continue to be followed by the primary engraver apprentice decorative or primary care provider. Thank you for [...] procedures Referring and communicating with other health body care manager (not separately reported) Documenting clinical information [...] provider today? No documented in this encounter [facility] 12-23-2023 History of Presen t illness Narrative [...] ROMAN Valadez documented in this encounter [facility] 11-26-2023 History of Presen t illness Narrative Summary: [facility] Genetic Counseling Note Images from the original note were not included. Provider at different site/location than patient. I confirmed the patient is located in the [facility]. Lenora Galaviz is currently at home and provider at remote site. The patient consented to be treated electronically via this form of telemedicine. This visit was not related to an office visit or procedure in the past 7 days, and in-office follow up is not recommended in the next 24 hours. Video Visit via Real-time Synchronous Audiovisual Provider Location: [facility] AT [address] [phone] Patient Location: Patient's home Patient Location Marketing And Communications Officer: None Video Visit Consent Statement: I discussed [...] that there are some limitations compared to [id number]-vy-kyfc evaluations. We elected to proceed. Name: Lenora Galaviz : 1985 Date of Visit: 11/26/2023 Email: [email or web address] Preferred contact method: email Partner's Name: Mohit Age: 45 Requesting Physician: Lucia Toth MD [address] [place] [address], [address] [place], [place] [id number] Reason for Referral: Lenora Galaviz is a 38 y.o. female who presented to [facility] Telemedicine Clinic. Lenora is here at [...] - negative Performing lab: [facility] Test type: Fine Grader Screen without X-linked Disorders (CF and SMA) [...] greater than ~5 Mb. Karyotype can also medicinal plant picker mosaicism potentially as low as ~10%. [...] ([email or web address]) I personally spent 30 minutes in vnho-fl-pnmh time with this patient. I provided genetic [...] call or email their genetic counselor at [phone] or [email or web address] if any additional questions or concerns should arise. PATRICIA Grant Licensed, Certified Genetic Counselor documented in this encounter [facility] 11-11-2023 Miscellaneous Notes Attempted to call patient regarding carrier results. No answer, left VM to call back. documented in this encounter [facility] 11-11-2023 Telephone encounter Note Attempted to call patient regarding carrier results. No answer, left VM to call back. 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 Diagnosis Third trimester state, incidental Diabetes mellitus screening Screening for diabetes mellitus 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 SystemInstructionsNot on filedocumented in this encounter [facility] SystemInstructionsNot on filedocumented in this encounter [facility] SystemInstructionsNot on filedocumented in this encounter [facility] (narrative)* Consultation (Routine) - Pending Review Specialty Diagnoses / Procedures Referred By Juanita tello Referred To Contact Maternal and Medicine Diagnoses Multigravida of advanced maternal age in second trimester Abnormal genetic test during Lucia Toth MD [address] [place], [address] [place] [address] [facility] Maternal Med [address] [place] [address] Referral ID Status Reason Start Date Expiration Date Visits Requested Visits Authorized [id number] Pending Review Specialty Services Required 3 11/03/2024 [facility] Consultation (Routine) - Pending Review Specialty Diagnoses / Procedures Referred By Juanita tello Referred To Contact Maternal and Medicine Diagnoses Multigravida of advanced maternal age in second trimester Abnormal genetic test during Lucia Toth MD [address] [place] [place] [address] [facility] [address] [place] [address] Referral ID Status Reason Start Date Expiration Date Visits Requested Visits Authorized [id number] Pending Review Specialty Services Required 3 11/03/2024 1 1 [facility] Summary Purpose Family History No Family History Records FoundNo Family History Records FoundNo Family History Records FoundNo Family History Records FoundNo Family History Records Found Advance Directives No Advanced Directives Records FoundNo Advanced Directives Records FoundNo Advanced Directives Records FoundNo Advanced Directives Records FoundNo Advanced Directives Records Found Additional Source Comments INFORMATION SOURCE (unrecogn ized section and content) DATE CREATED AUTHOR 01/17/2023 [facility] DATE CREATED AUTHOR AUTHOR'S ORGANIZ ATION 12/04/2023 [facility] DATE CREATED AUTHOR AUTHOR'S ORGANIZ ATION 01/06/2024 [facility] DATE CREATED AUTHOR AUTHOR'S ORGANIZ ATION 04/07/2024 [facility] dical Specialists [facility] DATE CREATED AUTHOR AUTHOR'S ORGANIZ ATION 04/13/2024 [facility] Reason for Visit (unrecogniz ed section and content) Reason Comments Routine Visit Reason Comments Marginal Insertion of Umbilical Cord Advanced Maternal Age Circumvallate Placenta Care Teams (unrecognized sec tion and content) Wire Inserter Relationship Specialty Start Date End Date No Pcp, [place] [address] PCP - General Family Medicine 12/01/23 Team Status: Inactive Member Role Status Dates Lilian King Attending Provider Active Start: Christi 2023 End: April 11, 2024 Goals (unrecognized section and content) Goals may be documented in a n alternate section FOR RECORDS PERTAINING TO PATIENTS WHO ARE [...] BE BASED ON THE PRIMARY CLINICAL RECORDS. [employer] [facility]. provides no warranty or guarantee of the accuracy or completeness of information in this document.
--- NOTE | 2024-04-15 11:48 | PC.NURSE ---
Mohit Cooley and 4 day old daughter, Livia arrive for follow up visit. Mom reports doing well, gas finally resolved yesterday and feels 100% better. States incision tender, but only takes Motrin or Tylenol occasionally. No complaints offered. VSS and assessment WNL. Incision open to air, steri strips intact with old drainage noted. Incision with edema above and across to bilateral hips. No redness or drainage noted. Milk in and states breast feeding going well. Nipples without trauma or damage. No longer expressing and syringe feeding. Baby feeds every 2.5 hours and nurses from both breasts. Feeding is getting better each day Reports wets and stools with each feeding 8-10 wet/poopy diapers a day Livai with VSS and assessment WNL. No concerns noted. Baby returns to dad after assessment without feeding here as baby fed prior to arrival in parking lot. Mom aware to call for questions or concerns, and of [facility] group for support. Leaves ambulatory.
[2024-04-15 11:52] VITALS: BP 122/78; PULSE 76; TEMP 36.6
== END 2024-04-15 11:57 | disposition home or self-care (01) ==
LOC: FBCO 08:18
PROVIDERS: Visit Provider Obstetrics & Gynecology
DX: Z39.2 Encounter for routine postpartum follow-up (principal)